=== PATIENT | female | born 1955 | race Caucasian/White ===

== ENCOUNTER 2025-03-01 14:38 | Emergency (ER) | payer MEDICARE, SELFPAY ==
[2025-03-01 14:45] VITALS: BP 120/79; PULSE 80; RESP 81; TEMP 36.7; O2SAT 94; BMI 32.5
--- NOTE | 2025-03-01 14:48 | PD.EDRME ---
Rapid Medical Screening Exam RME Arrival date/time: 03/01/25 14:38 Chief Complaint: General Adult/Misc Complain RME Narrative: 69-year-old male presents the emergency department with complaint of lower leg swelling past 3 days. Patient has a history of chronic stable angina and sees a material handling warehouse supervisor. Her next appointment is on March 13, 2025. Patient states that she has had 3 stent placement and per her last cardiology visit she needed one of the stents changed but she states there is been some stenosis and narrowing around the last stent and the material handling warehouse supervisor has not made a decision on what to do with the ring around the stent. She states that she has elevated heart rate with movement. She denies shortness of breath.
--- NOTE | 2025-03-01 14:51 | EKG_ITS ---
[facility] Test Date: 2025-03-01 Pat Name: BALBINA MARTIN Department: Room: - Gender: Female Plate Roller: : 1955 Requested By: Yumiko Craig Order Number: [id number] Reading MD: Yumiko Craig Measurements Intervals [place] Rate: 80 P: 48 NE: 156 QRS: -44 QRSD: 117 T: 45 QT: 364 QTc: 420 Interpretive Statements SINUS RHYTHM WITH SINUS ARRHYTHMIA LEFT AXIS DEVIATION [QRS AXIS < -30] PATTERN CONSISTENT WITH PULMONARY DISEASE INCOMPLETE RIGHT BUNDLE BRANCH BLOCK [90+ ms QRS DURATION, TERMINAL R IN V1/V2, 40+ ms S IN I/aVL/V4/V5/V6] MODERATE VOLTAGE CRITERIA FOR LVH, CONSIDER NORMAL VARIANT [MEETS CRITERIA IN ONE OF: R(aVL), S(V1), R(V5), R(V5/V6)+S(V1)] Compared to ECG 02/11/2024 03:01:38 Incomplete right bundle-branch block now present ST (T wave) deviation no longer present Myocardial infarct finding no longer present /store/S0/[id number].pdf
--- NOTE | 2025-03-01 14:52 | XR_ITS ---
Examination: Venous duplex lower extremity sonogram, bilateral. Date and time of exam: March 01, 2025 1550 hours INDICATIONS: Bilateral leg pain and edema beginning one week ago Technique: Multiple sonographic images of the deep venous system have been obtained. B-mode/2-D grayscale imaging of vascular structures and Doppler spectral analysis (waveforms) and color performed Both legs are examined. Findings: Deep venous systems do not demonstrate abnormal echogenicity. All visualized deep veins exhibit compressibility. All visualized deep veins exhibit augmentation. Impression: Negative for deep vein thrombosis
--- NOTE | 2025-03-01 15:03 | EKG_ITS ---
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: : 1955 Requested By: Yumiko Craig Order Number: [id number] Reading MD: Yumiko Craig Measurements Intervals [place] Rate: 82 P: 44 [place]: 152 QRS: -45 QRSD: 118 T: 43 QT: 356 QTc: 418 Interpretive Statements SINUS RHYTHM PATTERN CONSISTENT WITH PULMONARY DISEASE INCOMPLETE RIGHT BUNDLE BRANCH BLOCK [90+ ms QRS DURATION, TERMINAL R IN V1/V2, 40+ ms S IN I/aVL/V4/V5/V6] LEFT ANTERIOR FASCICULAR BLOCK [QRS AXIS <= -45, QR IN I, RS IN II] MODERATE VOLTAGE CRITERIA FOR LVH, CONSIDER NORMAL VARIANT [MEETS CRITERIA IN ONE OF: R(aVL), S(V1), R(V5), R(V5/V6)+S(V1)] POSSIBLE SEPTAL MYOCARDIAL INFARCTION , OF INDETERMINATE AGE [30 ms Q WAVE IN V1/V2] Compared to ECG 03/01/2025 14:57:27 Left anterior fascicular block now present Myocardial infarct finding now present Sinus arrhythmia no longer present Left-axis deviation no longer present /store/S0/[id number]/[id number].pdf
[2025-03-01 15:25] LABS: Basophils % (Auto) 1 % (0-2.5); Eosinophils # (Auto) 0.3 Thou/mm3 (0.0-0.5); Eosinophils % (Auto) 4 % (0-10); Hematocrit 37.1 % (36.0-46.0); Immature Granulocytes % (Auto) 0 % (0-0); Immature Granulocytes Auto 0.02 Thou/mm3 (0.00-0.00); Lymphocytes # (Auto) 2.4 Thou/mm3 (1.0-4.8); Lymphocytes % (Auto) 40 % (10-50); Mean Corpuscular Hemoglobin 32.2 pg (25.0-35.0); Mean Corpuscular Volume 92 fL (80-100); Monocytes # (Auto) 0.5 Thou/mm3 (0.0-0.8); Monocytes % (Auto) 8 % (0-12); Neutrophils # (Auto) 2.9 Thou/mm3 (1.8-7.7); Neutrophils % (Auto) 47 % (37-80); Nucleated Red Blood Cell % 0 /100 WBC (0); Platelet Count 214 Thou/mm3 (140-440); RDW Standard Deviation 43.3 fL (36.4-46.3); Red Blood Count 4.04 Miln/mm3 (4.00-5.20); White Blood Count 6.1 Thou/mm3 (3.6-11.0)
[2025-03-01 15:38] LABS: B-Type Natriuretic Peptide 36 pg/mL (0-100)
[2025-03-01 15:39] LABS: Alanine Aminotransferase 14 U/L (10-49); Albumin, Serum 4.5 gm/dL (3.4-4.8); Alkaline Phosphatase 71 U/L (46-116); Anion Gap 9 (7-16); Aspartate Amino Transferase 21 U/L (0-34); BUN/Creatinine Ratio 12 Ratio (12-20); Bilirubin,Total 0.8 mg/dL (0.3-1.2); Blood Urea Nitrogen 22 mg/dL (9-23); Calcium 9.5 mg/dL (8.3-10.6); Calcium (Corrected) 9.5 mg/dL (8.5-10.1); Carbon Dioxide 33.7 mMol/L (20.0-31.0); Chloride 97 mMol/L (98-107); Creatinine (Component) 1.8 mg/dL (0.6-1.3); Estimated Creatinine Clearance 39.6 mL/min (>60); Globulin 2.3 gm/dL (2.3-3.5); Glucose 110 mg/dL (74-106); Lipase 36 U/L (12-53); Osmolality,Calculated 283 (275-295); Potassium 4.3 mMol/L (3.4-5.1); Sodium 140 mMol/L (136-145); Total Protein 6.8 gm/dL (5.7-8.2); Troponin I < 0.002 ng/mL (0.0-0.045); eGFR 30 See Note
--- NOTE | 2025-03-01 15:43 | XR_ITS ---
Examination: AP chest single view TECHNIQUE: AP semiupright portable chest single view Exam date and time: March 01, 2025, 1715 hours Comparison February 11, 2024 INDICATION: Shortness of breath today. FINDINGS: Normal heart size Minimal ectasia of thoracic aorta. No lobar pneumonia or pulmonary edema. Prominent osteopenia IMPRESSION: No lobar pneumonia or pulmonary edema
[2025-03-01 15:48] VITALS: BP 124/60; PULSE 80
[2025-03-01] MEDS: FUROSEMIDE INJ 10 MG/ML 4ML VIAL 40 MG IVP (15:48)
[2025-03-01 15:52] VITALS: BP 124/60; PULSE 82; RESP 17; O2SAT 94
--- NOTE | 2025-03-01 15:54 | PD.EDADULT ---
ED General RME/HPI General Chief complaint: General Adult/Misc Complain Stated complaint: LOWER EXREMITY SWELLING Time Seen by Provider: 03/01/25 15:41 Arrival date/time: 03/01/25 14:38 CC: Lower extremity edema with posterior fossa knee pain, generalized weakness HPI ongoing for the past 3 days. Denies chest pain shortness of difficulty breathing. Was seen by Dr. Crespo 4 days ago. RME / HPI RME / HPI narrative: 69-year-old male presents the emergency department with complaint of lower leg swelling past 3 days. 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 Her next appointment is on March 13, 2025. Patient states that she has had 3 stent placement and per her last cardiology visit she needed one of the stents changed but she states there is been some stenosis and narrowing around the last stent and the char filter tank tender head has not made a decision on what to do with the ring around the stent. She states that she has elevated heart rate with movement. She denies shortness of breath. Related Data Home Medications ?Medication ?Instructions ?Recorded ?Confirmed alprazolam 2 mg tablet (Xanax) 2 mg PO BID #0 tabs 09/17/15 05/11/21 aspirin 81 mg tablet 81 mg PO QDAY ##0 09/17/15 05/11/21 hydrocodone 10 mg-acetaminophen 1.5 tab PO QDAY #0 tabs 09/17/15 05/11/21 325 mg tablet levothyroxine 100 mcg tablet 100 mcg PO QDAY Thyroid #0 tabs 09/17/15 05/11/21 carvedilol 12.5 mg tablet 12.5 mg PO BID 05/11/21 05/11/21 clopidogrel 75 mg tablet 75 mg PO QDAY 05/11/21 05/11/21 conjugated estrogens 0.3 mg tablet 0.3 mg PO QDAY 05/11/21 05/11/21 (Premarin) losartan 50 mg tablet 50 mg PO BID 05/11/21 05/11/21 nitroglycerin 0.4 mg sublingual 0.4 mg buccal PRN PRN Chest Pain 05/11/21 05/11/21 tablet rosuvastatin 5 mg tablet 5 mg PO HS 05/11/21 05/11/21 sulfamethoxazole 800 1 tab PO BID 05/11/21 05/11/21 mg-trimethoprim 160 mg tablet Allergies Allergy/AdvReac Type Severity Reaction Status Date / Time No Known Allergies Allergy Verified 03/01/25 14:44 Past Medical History Past Medical History CARDIAC: Positive Hypercholesterolemia, Congestive Heart Failure and Hypertension; Negative Cardiac Disorders RESPIRATORY: Negative Chronic Obstructive Pulmonary Disease (COPD) or Asthma GENITOURINARY: Positive Renal Disease ENDOCRINE: Negative Diabetes Mellitus Type 1 or Diabetes Mellitus Type 2 HEMATOLOGIC: Negative Sickle Cell Disease OTHER HISTORY: Positive Cancer Social History SMOKING STATUS: Never smoker SUBSTANCE USE: does not use ED Exam Narrative Physical exam: [General: Obese not in any acute distress Head normocephalic HEENT: Eyes pupils are PERRLA EOMs are intact mouth pink moist membranes uvula is midline swallow symmetrical phonation is normal. All other subsystems of ATTR within acceptable limits Neck is supple nontender Chest equal chest rise nontender to palpation Respiratory: Clear to auscultation no wheezes crackles or rubs CV: Rate rhythm is regular no murmurs rubs or clicks Abdomen is distended secondary to body habitus soft nontender no masses positive bowel sounds all 4 quadrants Back: No CVA tenderness no spinous process tenderness from cervical spine thoracic and lumbar spine Skin: Intact no petechiae rash induration ulceration or crepitus. Mild circumferential erythema to the lower extremities bilaterally. Extremities: Moving all extremity against resistance cap refill less than 2 seconds neurosensory intact. Lower extremity nonpitting edema to the lower portion of the lower legs. No dorsal foot edema. Tenderness to palpation in the posterior fossa of both legs. Neuro: Awake alert oriented x3 [place] coma 15 no focal deficits] Course Course Course Narrative: Patient seen by Dr. Crespo in the ER. He was informed of the increase in the creatinine from 0.9-1.8 and he had revealed that the patient had been given diuretics for the last 3 days. Nurse just informed me also the patient was given additional diuretics today prior to me seeing the patient as prescribed by the triage provider. At this time patient will now be given IV fluids and monitored for improvement of the creatinine. I suspect dehydration is the culprit for her rise in creatinine. The patient's creatinine is improved from 1.8-1.5 after liter of fluid and 2 large glasses of water over several hours. At this time I am comfortable discharging the patient home as long as she has close follow-up if she cannot get into see her PCP, Dr. Crespo char filter tank tender head, she is to return to the emergency room for recheck of her BUN and creatinine. Patient also advised if there is no urine coming out in spite of drinking fluids she is to return immediately to the emergency room for reevaluation. Patient and are agreeable with this plan. Quality Measures none Orders Category Date Time Status EKG (ED ONLY) *Do not use* NOW Care 03/01/25 14:51 Completed EKG (ED ONLY) *Do not use* NOW Care 03/01/25 15:03 Completed EKG (ED Only) Stat Exams 03/01/25 14:51 Draft EKG (ED Only) Stat Exams 03/01/25 15:03 Draft US venous duplex LE BI Stat Exams 03/01/25 14:52 Completed XR chest 1V Stat Exams 03/01/25 15:43 Completed B-Type Natriuretic Peptide Stat Lab 03/01/25 15:05 Completed CBC Stat Lab 03/01/25 15:05 Completed CMP [Comprehensive Metabolic Panel] Stat Lab 03/01/25 18:50 Completed Comprehensive Metabolic Panel Stat Lab 03/01/25 15:05 Completed Creatine Kinase Stat Lab 03/01/25 15:05 Completed Lipase Stat Lab 03/01/25 15:05 Completed TSH [Thyroid Stimulating Hormone] Stat Lab 03/01/25 15:05 Completed Troponin I Stat Lab 03/01/25 15:05 Completed Urinalysis, C/S if Indicated Stat Lab 03/01/25 16:29 Completed Furosemide Inj [Lasix Inj] Med 03/01/25 14:51 Discontinued 40 mg IVP X1 ONE Sodium Chloride 0.9% 1000 ml [Ns] 1,000 ml Med 03/01/25 16:15 Discontinued IV 999 mls/hr Vital Signs Vital signs: Vital Signs Temperature 98.0 F 03/01/25 14:45 Pulse Rate 80 03/01/25 14:45 Respiratory Rate 81 H 03/01/25 14:45 Blood Pressure 120/79 03/01/25 14:45 Pulse Oximetry (%) 94 L 03/01/25 14:45 Oxygen Delivery Method Room Air 03/01/25 14:45 Discharge Plan Plan Patient Disposition: HOME (Self Care) Patient condition on transfer: Stable Prescriptions/Referrals Prescriptions/Med Rec: No Action hydrocodone-acetaminophen [[place]] 10-325 mg Tablet 1.5 tab PO QDAY Qty: 0 levothyroxine 100 mcg Tablet 100 mcg PO QDAY Qty: 0 alprazolam [Xanax] 2 MG tablet 2 mg PO BID Qty: 0 aspirin 81 mg Tablet 81 mg PO QDAY Qty: 0 losartan 50 mg Tablet 50 mg PO BID carvedilol 12.5 mg Tablet 12.5 mg PO BID clopidogrel 75 mg Tablet 75 mg PO QDAY sulfamethoxazole-trimethoprim 800-160 mg tablet 1 tab PO BID nitroglycerin 0.4 mg Tablet, Sublingual 0.4 mg BUCCAL PRN PRN (Reason: Chest Pain) Premarin 0.3 mg Tablet 0.3 mg PO QDAY rosuvastatin 5 mg Tablet 5 mg PO HS Referrals: Brittaney Vazquez MD [Primary Care Provider] - In 1 week Problem List Clinical Impression: Dehydration, RENEE (acute kidney injury) Patient/Caregiver Discharge Instructions Education Materials: Kidney Failure Self Care, ED Dehydration (Adult) Print Language: Yoruba Stand Alone Forms: Kelsie Award Info., Patient Portal Info Letter PA/DIRECTOR DECISION SUPPORT Supervising Physician PA/DIRECTOR DECISION SUPPORT Supervising Physician: Morgan Lorenz ENP [facility] Labs Lab(s) Interpretation(s): CBC shows no acute leukocytosis anemia thrombocytopenia CMP shows a chloride of 97 CO2 of 33.7 BUN of 22 creatinine of 1.8 note this is significant increase from 0.9 creatinine 3 weeks ago. Glucose of 110 no other electrolyte imbalances renal impairment no transaminitis or T. bili elevation Troponin is negative BNP is negative Imaging Imaging Interpretation(s): EKG performed at 1457 shows a ventricular rate of 80 CO interval 156 QRS of 117 QTc of 3 9 this is sinus rhythm with sinus arrhythmia. There is an isolated else ST segment elevation in V2 no reciprocal changes or other ST segment elevations. Repeat EKG at 1508 shows ventricular to be 2 CO interval 152 QRS of 118 QTc of 395 shows incomplete right bundle branch block again there is an isolated V2 segment elevation but no other ST segment elevation no reciprocal changes. When compared to old EKGs these are slightly different than ones that were performed in January 2024 but there are similar EKGs in 2019. All of these were reviewed by Dr. Crespo who states this is a nonspecific finding. He felt we will follow-up the patient outpatient basis. Medication Administration(s) Medication Administration History Discontinued Medications Furosemide (Furosemide Inj 10 Mg/Ml 4ml Vial) 40 mg IVP X1 ONE Stop: 03/01/25 14:52 Last Admin: 03/01/25 15:48 Dose: 40 mg Documented By: LAM Sodium Chloride (Ns) 1,000 mls @ 999 mls/hr IV .Q1H1M ONE Stop: 03/01/25 17:15 Last Infusion: 03/01/25 18:15 Dose: Infused Documented By: Admin: 03/01/25 17:09 Dose: 999 mls/hr Documented By: LAM
[2025-03-01 16:21] LABS: Creatine Kinase 129 U/L (34-171); Thyroid Stimulating Hormone 0.81 uIU/mL (0.55-4.78)
[2025-03-01 16:39] LABS: Collection Type, Urine Voided
[2025-03-01 16:50] LABS: Bilirubin,Urine Negative (Negative); Blood,Urine Negative (Negative); Clarity,Urine Clear (Clear/Hazy); Color,Urine Lt-Yellow (Lt Yel-Yel); Culture Indicated,Urine Not Indicated; Glucose, Urine Negative (Negative); Ketones,Urine Negative (Negative); Leukocyte Esterase,Urine Negative (Negative); Nitrite,Urine Negative (Negative); PH,Urine 7.5 (5.0-7.0); Protein,Urine Negative (Neg - Trace); RBC,Urine 1 /hpf (0-3); Specific Gravity,Urine 1.008 (1.001-1.035); Squamous Epithelial Cell,Urine < 1 /hpf (0-5); Urobilinogen,Urine Negative mg/dL (0.0-1.0); WBC,Urine 1 /hpf (0-5)
[2025-03-01] MEDS: SODIUM CHLORIDE 0.9% 1000 ML 1,000 ML 999 ML IV (17:09)
[2025-03-01 18:19] VITALS: BP 140/76; PULSE 74; RESP 20; TEMP 36.3; O2SAT 95
[2025-03-01 19:18] LABS: Alanine Aminotransferase 15 U/L (10-49); Albumin, Serum 4.4 gm/dL (3.4-4.8); Albumin/Globulin Ratio 2.1 (1.2-2.2); Alkaline Phosphatase 65 U/L (46-116); Anion Gap 6 (7-16); Aspartate Amino Transferase 21 U/L (0-34); BUN/Creatinine Ratio 13 Ratio (12-20); Bilirubin,Total 0.7 mg/dL (0.3-1.2); Blood Urea Nitrogen 20 mg/dL (9-23); Calcium 9.1 mg/dL (8.3-10.6); Calcium (Corrected) 9.1 mg/dL (8.5-10.1); Carbon Dioxide 32.5 mMol/L (20.0-31.0); Chloride 97 mMol/L (98-107); Creatinine (Component) 1.5 mg/dL (0.6-1.3); Estimated Creatinine Clearance 47.5 mL/min (>60); Globulin 2.1 gm/dL (2.3-3.5); Glucose 112 mg/dL (74-106); Osmolality,Calculated 273 (275-295); Potassium 3.4 mMol/L (3.4-5.1); Sodium 135 mMol/L (136-145); Total Protein 6.5 gm/dL (5.7-8.2); eGFR 37 See Note
[2025-03-01 19:45] VITALS: BP 144/74; PULSE 76; RESP 16; TEMP 36.6; O2SAT 99
== END 2025-03-01 19:53 | disposition home or self-care (01) ==
PROVIDERS: Physician Assistant; Registered Nurse General Practice; Emergency Provider Emergency Medicine; PCP Specialist
DX: E86.0 Dehydration (principal); N17.9 Acute kidney failure, unspecified; M79.89 Other specified soft tissue disorders; I20.89 Other forms of angina pectoris; Z95.5 Presence of coronary angioplasty implant and graft
CPT/HCPCS: 36415; 71045; 80053; 81001; 82550; 83690; 83880; 84443; 84484; 85025; 93005; 93970; 96360; 99284; J1938; J7030

== ENCOUNTER → 2025-03-04 | Outpatient (CLI) | payer MEDICARE, SELFPAY ==
[2025-03-04 12:28] LABS: Anion Gap 9 (7-16); BUN/Creatinine Ratio 14 Ratio (12-20); Blood Urea Nitrogen 15 mg/dL (9-23); Calcium 10.1 mg/dL (8.3-10.6); Calcium (Corrected) 10.1 mg/dL (8.5-10.1); Carbon Dioxide 27.9 mMol/L (20.0-31.0); Chloride 103 mMol/L (98-107); Creatinine (Component) 1.1 mg/dL (0.6-1.3); Glucose 126 mg/dL (74-106); Osmolality,Calculated 282 (275-295); Phosphorous 3.3 mg/dL (2.4-5.1); Potassium 4.3 mMol/L (3.4-5.1); Sodium 140 mMol/L (136-145); eGFR 54 See Note
== END | disposition home or self-care (01) ==
LOC: COPL 11:38
PROVIDERS: PCP Specialist; Referring Provider Internal Medicine Cardiovascular Disease; Visit Provider Internal Medicine Cardiovascular Disease
DX: I20.89 Other forms of angina pectoris (principal); I50.33 Acute on chronic diastolic (congestive) heart failure
CPT/HCPCS: 36415; 80069

== ENCOUNTER 2025-04-01 20:21 | Emergency (ER) | payer MEDICARE, SELFPAY ==
[2025-04-01 20:22] VITALS: BMI 27.6
--- NOTE | 2025-04-01 20:39 | XR_ITS ---
Examination: Knee, left , 3 views Technique: Knee AP, lateral, oblique 3 views Date and time of exam: April 01, 2025 2109 hours INDICATIONS: Knee pain and swelling beginning 2 weeks ago. FINDINGS: Moderate to advanced tricompartment osteoarthritis, most severe patellofemoral joint No fracture No ossified joint body IMPRESSION: Moderate to advanced tricompartment osteoarthritis No fracture
[2025-04-01 21:24] VITALS: BP 118/71; PULSE 69; RESP 20; TEMP 36.7; O2SAT 97
--- NOTE | 2025-04-01 21:55 | PD.EDLOWEX ---
Lower Extremity Injury RME/HPI General Chief Complaint: Extremity Injury, Lower Stated Complaint: LEFT KNEE SWELLING AND PAIN, FALL 3 WKS AGO Time Seen by Provider: 04/01/25 21:42 Arrival date/time: 04/01/25 20:21 70F with history of CHF, hypothyroidism and HTN presents to ED with L knee pain/swelling after she fell on it 3 weeks ago. Patient has ortho appt in 2 weeks. Limitations: no limitations Related Data Home Medications ?Medication ?Instructions ?Recorded ?Confirmed alprazolam 2 mg tablet (Xanax) 2 mg PO BID #0 tabs 09/17/15 05/11/21 aspirin 81 mg tablet 81 mg PO QDAY ##0 09/17/15 05/11/21 hydrocodone 10 mg-acetaminophen 1.5 tab PO QDAY #0 tabs 09/17/15 05/11/21 325 mg tablet levothyroxine 100 mcg tablet 100 mcg PO QDAY Thyroid #0 tabs 09/17/15 05/11/21 carvedilol 12.5 mg tablet 12.5 mg PO BID 05/11/21 05/11/21 clopidogrel 75 mg tablet 75 mg PO QDAY 05/11/21 05/11/21 conjugated estrogens 0.3 mg tablet 0.3 mg PO QDAY 05/11/21 05/11/21 (Premarin) losartan 50 mg tablet 50 mg PO BID 05/11/21 05/11/21 nitroglycerin 0.4 mg sublingual 0.4 mg buccal PRN PRN Chest Pain 05/11/21 05/11/21 tablet rosuvastatin 5 mg tablet 5 mg PO HS 05/11/21 05/11/21 sulfamethoxazole 800 1 tab PO BID 05/11/21 05/11/21 mg-trimethoprim 160 mg tablet Allergies Allergy/AdvReac Type Severity Reaction Status Date / Time No Known Allergies Allergy Verified 04/01/25 20:22 Review of Systems Review of Systems Systems Reviewed: All systems reviewed, normal except as documented Constitutional Constitutional: Reports system reviewed and no additional complaints, except as documented, Denies fever(s) and Denies headache(s) ENT Ears, Nose, Mouth, and Throat: Denies disequilibrium and Denies headache(s) Cardiovascular Cardiovascular: Reports system reviewed and no additional complaints, except as documented, Denies chest pain and Denies dyspnea Respiratory Respiratory: Reports system reviewed and no additional complaints, except as documented, Denies cough and Denies dyspnea Gastrointestinal Gastrointestinal: Reports system reviewed and no additional complaints, except as documented, Denies abdominal pain, Denies nausea and Denies vomiting Musculoskeletal Musculoskeletal: Reports as per HPI, Reports arthralgias and Reports joint swelling Neurologic Neurologic: Reports system reviewed and no additional complaints, except as documented, Denies confusion, Denies disequilibrium and Denies headache(s) Psychiatric Psychiatric: Denies confusion Past Medical History Past Medical History CARDIAC: Positive Hypercholesterolemia, Congestive Heart Failure and Hypertension; Negative Cardiac Disorders RESPIRATORY: Negative Chronic Obstructive Pulmonary Disease (COPD) or Asthma GENITOURINARY: Positive Renal Disease ENDOCRINE: Negative Diabetes Mellitus Type 1 or Diabetes Mellitus Type 2 HEMATOLOGIC: Negative Sickle Cell Disease OTHER HISTORY: Positive Cancer Social History SMOKING STATUS: Never smoker SUBSTANCE USE: does not use ED Exam General Limitations: Present no limitations General appearance: Present alert and in no apparent distress Head Head exam: Present atraumatic Eye Eye exam: Present normal appearance, PERRL and EOMI ENT ENT exam: Present normal exam, normal oropharynx and mucous membranes moist Neck Neck exam: Present normal inspection, full ROM and trachea midline Chest Chest inspection: Present normal inspection and symmetric chest wall rise Respiratory Respiratory exam: Present normal lung sounds bilaterally Cardiovascular Cardiovascular exam: Present regular rate, normal rhythm and normal heart sounds Abdominal Exam Abdominal exam: Present soft and normal bowel sounds Extremities Exam Extremities exam: Present full ROM Expanded Lower Extremity Exam Knee exam: Present full ROM (L), swelling and ecchymosis Back Exam Back exam: Present normal inspection and full ROM Neurological Exam Neurological exam: Present alert, oriented X3 and CN II-XII intact Psychiatric Psychiatric exam: Present normal affect and normal mood Skin Skin exam: Present warm, dry, intact and normal color Course Quality Measures none Orders Category Date Time Status XR knee LT 3V Stat Exams 04/01/25 20:39 Completed Dexamethasone Inj [Decadron Inj] Med 04/01/25 21:43 Discontinued 10 mg PO X1 ONE Vital Signs Vital signs: Vital Signs Temperature 98.1 F 04/01/25 21:24 Pulse Rate 69 04/01/25 21:24 Respiratory Rate 20 04/01/25 21:24 Blood Pressure 118/71 04/01/25 21:24 Pulse Oximetry (%) 97 04/01/25 21:24 Oxygen Delivery Method Room Air 04/01/25 21:24 O2 at 97% on RA and WNLs Extremity Injury, Lower MDM Narrative MDM Narrative:: 70F with history of CHF, hypothyroidism and HTN presents to ED with L knee pain/swelling after she fell on it 3 weeks ago. Patient has ortho appt in 2 weeks. Physical exam reveals L knee swelling and bruising, but no redness. Patient is afebrile, calm, and alert. XR reveals OA. Meds and insurance counselor given. Patient data External records reviewed:: [facility] previous records Clinical information provided by:: patient Social determinants that could affect healthcare access:: none Patient has the following chronic illnesses:: CHF, hypothyroidism and HTN How is presenting disease/condition affected by chronic disease/condition?: exacerbated by Evaluation data The following diagnostics were reviewed and interpreted by me:: radiology exam(s) Lab and/or radiology exams considered but not ordered:: ordered Interpretation Summary: above Medications / Prescriptions Medications or Prescriptions considered but not ordered:: ordered Medication administrations:: Medication Administration History Discontinued Medications Dexamethasone Sodium Phosphate (Dexamethasone Sod Phos Inj 10 Mg/Ml Vial) 10 mg PO X1 ONE Stop: 04/01/25 21:44 above Consultations Consultation(s) initiated? (list below): No Diagnosis Extremity Injury, Lower Differential Diagnosis: ankle sprain and strain, acute internal derangement of knee, fracture of femur, fracture of hip, puncture wound of foot, fracture of toe and ankle fracture Most likely diagnosis given after review of the tests above:: acute internal derangement of knee Admission Indicated Admission indicated?: not indicated Admission Request Was there a request for admission?: No Disposition Plan Disposition Plan: Discharge Discharge Attestation Discharge Attestation: The patient and all family members were given an opportunity to ask questions and understood the discharge instructions. Discharge instructions specifically effects, indications for sooner follow up or return to the emergency department, and the expected course of current diagnosis. Patient condition: Stable Discharge Plan Plan Patient Disposition: HOME (Self Care) Discharge Disposition comment: Stable Prescriptions/Referrals Prescriptions/Med Rec: No Action hydrocodone-acetaminophen [[place]] 10-325 mg Tablet 1.5 tab PO QDAY Qty: 0 levothyroxine 100 mcg Tablet 100 mcg PO QDAY Qty: 0 alprazolam [Xanax] 2 MG tablet 2 mg PO BID Qty: 0 aspirin 81 mg Tablet 81 mg PO QDAY Qty: 0 losartan 50 mg Tablet 50 mg PO BID carvedilol 12.5 mg Tablet 12.5 mg PO BID clopidogrel 75 mg Tablet 75 mg PO QDAY sulfamethoxazole-trimethoprim 800-160 mg tablet 1 tab PO BID nitroglycerin 0.4 mg Tablet, Sublingual 0.4 mg BUCCAL PRN PRN (Reason: Chest Pain) Premarin 0.3 mg Tablet 0.3 mg PO QDAY rosuvastatin 5 mg Tablet 5 mg PO HS Referrals: Brittaney Vazquez MD [Primary Care Provider] - In 1 week Problem List Clinical Impression: Acute internal derangement of knee Patient/Caregiver Discharge Instructions Education Materials: How Your Knee Works Additional Instructions: Please follow-up with PCP within 24-48 hours and return immediately if symptoms worsen. If problem persists, recommend outpatient PT and/or MRI follow-up. In the meantime, rest, use ice/heat, and/or compression. Print Language: Sri Lankan Stand Alone Forms: Patient Portal Info Letter PA/BASKET PATCHER Supervising Physician PA/BASKET PATCHER Supervising Physician: Dr. Gee
[2025-04-01] MEDS: DEXAMETHASONE SOD PHOS INJ 10 MG/ML VIAL PO (22:20)
== END 2025-04-02 00:56 | disposition home or self-care (01) ==
PROVIDERS: Emergency Provider Emergency Medicine; PCP Specialist
DX: M23.92 Unspecified internal derangement of left knee (principal); I11.0 Hypertensive heart disease with heart failure; I50.9 Heart failure, unspecified; E03.9 Hypothyroidism, unspecified
CPT/HCPCS: 73562; 99283; J1100

== ENCOUNTER → 2025-06-10 | Outpatient (CLI) | payer MEDICARE, SELFPAY ==
--- NOTE | 2025-06-10 09:30 | XR_ITS ---
Examination: MRI lumbar spine without contrast Date and time of exam: June 10, 2025 1044 hours Comparison March 30, 2017 INDICATIONS: Lifting injury to lower back 5 years ago with persistent lower back pain Technique: Multiple MRI axial and sagittal sections lumbar spine. Sagittal T2-weighted images, TR 3500, TE 118 T1 weighted transverse sections, TR 688 T8.5, T2-weighted sagittal sections T1 weighted sagittal sections TR 621, TE 30 T2 axial sections, TR 4, 190, TE 84. Findings: Adequate alignment lumbar vertebral bodies on the lateral view Hemangiomatous change L1 No lumbar fracture Mild lumbar spondylosis Diffuse lumbar disc desiccation No spondylolisthesis L5-S1 4 mm right paracentral disc bulge L4-L5 4 mm central lumbar disc bulge L3-L4 no disc protrusion L2-L3 no disc protrusion L1-L2 no disc protrusion Mass in the mid pole right kidney, 34 mm IMPRESSION: L5-S1 4 mm right paracentral disc bulge L4-L5 4 mm central lumbar disc bulge Recommend CT scan abdomen pelvis post intravenous contrast follow-up to assess 34 mm midpole right renal mass
== END | disposition home or self-care (01) ==
LOC: SMRI 09:06
PROVIDERS: PCP Specialist; Referring Provider Specialist; Visit Provider Specialist
DX: M51.370 Other intervertebral disc degeneration, lumbosacral region with discogenic back pain only (principal); M51.360 Other intervertebral disc degeneration, lumbar region with discogenic back pain only
CPT/HCPCS: 72148

== ENCOUNTER 2025-08-06 12:32 | Inpatient (IN) | payer MEDICARE, SELFPAY ==
[2025-08-06] VITALS (8 sets, daily range): BP systolic 117–174; BP diastolic 91–94; PULSE 20–100; RESP 18–98; TEMP 36.3–37; O2SAT 97–100; BMI 27.8; BMI 30.8
--- NOTE | 2025-08-06 12:43 | XR_ITS ---
Examination: CT brain head without contrast. 2-D sagittal coronal reconstructions Date and time of exam: August 06, 2025, 1428 hours INDICATIONS: Ground-level fall today with injury to the head, head pain CTDI: vol (mGy): 49 DLP: (mGycm): 1036 Technique: Multiple CT axial sections of the brain have been obtained, 5 mm slice thickness. Contrast has not been administered. 2-D sagittal, coronal reconstructions have been obtained Low dose protocols were performed. One or more of the following dose reduction techniques were used; automated exposure control, adjustment of the mA and/or KV according to patient size, use of iterative reconstruction technique. Findings: No significant ventricular enlargement. Intra-axial or extra-axial hemorrhage density is not seen. No mass effect or midline shift Basal cisterns are not remarkable. Fourth ventricle is midline. Cranial vault intact. Impression: Negative for acute hemorrhage, mass effect or midline shift
--- NOTE | 2025-08-06 12:43 | XR_ITS ---
Examination: Left hip AP, lateral, AP pelvis 3 views Technique: Hip AP lateral, AP pelvis, 3 views Exam date and time: August 06, 2025, 1334 hours INDICATIONS: Hip pain today FINDINGS: Prominent osteopenia. No acute left hip fracture Right hip bones of the pelvis intact Prominent osteopenia IMPRESSION: No acute hip or pelvic fracture.
--- NOTE | 2025-08-06 12:43 | EKG_ITS ---
[facility] Test Date: 2025-08-06 Pat Name: BALBINA MARTIN Department: Room: - Gender: Female Home Health Outreach Coordinator: : 1955 Requested By: Dagoberto Merida Order Number: [id number] Reading MD: Dagoberto Merida Measurements Intervals [place] Rate: 95 P: 63 MT: 164 QRS: -46 QRSD: 98 T: 52 QT: 342 QTc: 430 Interpretive Statements SINUS RHYTHM PATTERN CONSISTENT WITH PULMONARY DISEASE INCOMPLETE RIGHT BUNDLE BRANCH BLOCK [90+ ms QRS DURATION, TERMINAL R IN V1/V2, 40+ ms S IN I/aVL/V4/V5/V6] LEFT ANTERIOR FASCICULAR BLOCK [QRS AXIS <= -45, QR IN I, RS IN II] Compared to ECG 03/01/2025 15:08:59 Myocardial infarct finding no longer present /store/S0/[id number].pdf
--- NOTE | 2025-08-06 12:44 | XR_ITS ---
EXAMINATION: AP chest single view TECHNIQUE: AP portable upright chest single view Date and time: August 06, 2025, 1339 hours INDICATIONS: Sepsis alert FINDINGS: The film is rotated severely RPO No pneumonia Normal heart size Ectatic thoracic aorta Prominent osteopenia IMPRESSION: No pneumonia identified
--- NOTE | 2025-08-06 12:55 | PD.EDFALL ---
ED Fall Injury RME/HPI General Chief Complaint: Fall Stated Complaint: FALL Time Seen by Provider: 08/06/25 12:54 Arrival date/time: 08/06/25 12:32 RME / HPI RME / HPI Narrative: 70-year-old female patient with significant history of anxiety, chronic back pain, taking alprazolam, [place], hypertension, came in for evaluation after patient was noted lying on the floor. According to the patient she does not recall falling however when the fire arrived patient was on the floor lying down and sleeping. When the EMS arrived patient was noted to be having a GCS of 14 slightly confused. In my initial evaluation patient is denying any headache denies any recollection of fall, he is alert and oriented x 3, however complaining of pain to the left hip. Patient also complaining of chronic back pain. Patient denies any chest pain denies any headache denies any neck pain. No medication was given prior to ER visit. Related Data Home Medications ?Medication ?Instructions ?Recorded ?Confirmed alprazolam 2 mg tablet (Xanax) 2 mg PO BID #0 tabs 09/17/15 05/11/21 aspirin 81 mg tablet 81 mg PO QDAY ##0 09/17/15 05/11/21 hydrocodone 10 mg-acetaminophen 1.5 tab PO QDAY #0 tabs 09/17/15 05/11/21 325 mg tablet levothyroxine 100 mcg tablet 100 mcg PO QDAY Thyroid #0 tabs 09/17/15 05/11/21 carvedilol 12.5 mg tablet 12.5 mg PO BID 05/11/21 05/11/21 clopidogrel 75 mg tablet 75 mg PO QDAY 05/11/21 05/11/21 conjugated estrogens 0.3 mg tablet 0.3 mg PO QDAY 05/11/21 05/11/21 (Premarin) losartan 50 mg tablet 50 mg PO BID 05/11/21 05/11/21 nitroglycerin 0.4 mg sublingual 0.4 mg buccal PRN PRN Chest Pain 05/11/21 05/11/21 tablet rosuvastatin 5 mg tablet 5 mg PO HS 05/11/21 05/11/21 sulfamethoxazole 800 1 tab PO BID 05/11/21 05/11/21 mg-trimethoprim 160 mg tablet Allergies Allergy/AdvReac Type Severity Reaction Status Date / Time morphine Allergy Intermediate Diarrhea Verified 08/06/25 13:12 Review of Systems Review of Systems Narrative Review of Systems: Review of system reviewed and within normal limits except mentioned in HPI ED Exam Narrative Physical exam: VITAL SIGNS: Reviewed. GENERAL APPEARANCE: Alert and interactive, follows commands, no acute distress, HEAD AND FACE: Non-traumatic. ENT: PERRL, pink conjunctivitis, eyelid no trauma, Mucous membrane moist. NECK: Supple, nontender, no nuchal rigidity. CHEST: No tenderness, no crepitus, no paradoxical movement, no retractions. LUNGS: Clear, well ventilated, symmetric, no rales, no wheezing, no ronchi, no stridor, good breath sounds bilaterally. HEART: Regular rate, regular rhythm, no murmur, no gallops. ABDOMEN: Soft, positive bowel sounds, nondistended, no guarding, nontender, no rebound, no masses, RECTAL: Deferred. GENITAL: Deferred. NEUROLOGICAL: Gross motor function intact sensory function intact, Appropriate for age. MUSCULOSKELETAL: low back nontender, full range of motion. EXTREMITIES: Left hip tenderness, with limitation of range of motion, mild swelling, no shortening SKIN: Color pink, dry, no rash, no lacerations, no abrasions, no contusions. LYMPHATICS: Deferred. Course Quality Measures none Orders Category Date Time Status Patient Condition Routine Admission 08/06/25 20:[address] in Observation Status Routine Admission 08/06/25 20:21 Active Activity as Tolerated Routine Care 08/06/25 20:22 Ordered COVID-19 Screening Questionnaire NOW Care 08/06/25 19:28 Active Coat Maker STAT Care 08/06/25 12:43 Active Continuous Pulse Oximetry STAT Care 08/06/25 12:43 Completed Decision to Admit X1 Care 08/06/25 19:28 Completed EKG (ED ONLY) *Do not use* NOW Care 08/06/25 12:43 Completed Nolen [Urinary Catheter] QS Care 08/06/25 15:21 Active Insert IV NOW Care 08/06/25 12:43 Active NPO STAT Care 08/06/25 12:43 Active Notify provider NEEDED Care 08/06/25 20:21 Active Strict Intake and Output Routine Care 08/06/25 12:[address] head/brain wo con Stat Exams 08/06/25 12:43 Completed EKG (ED Only) Stat Exams 08/06/25 12:43 Draft US venous doppler LE BI Stat Exams 08/06/25 20:29 Completed XR chest 1V SEPSIS PROTOCOL Stat Exams 08/06/25 12:44 Completed XR hip LT w pelvis 2-3V Stat Exams 08/06/25 12:43 Completed B-Type Natriuretic Peptide Stat Lab 08/06/25 13:20 Completed Basic Metabolic Panel AM DRAW Lab 08/07/25 05:00 Ordered Basic Metabolic Panel AM DRAW Lab 08/08/25 05:00 Ordered Basic Metabolic Panel AM DRAW Lab 08/09/25 05:00 Ordered Blood Culture (Lab) Stat Lab 08/06/25 14:09 Received CBC AM DRAW Lab 08/07/25 05:00 Ordered CBC AM DRAW Lab 08/08/25 05:00 Ordered CBC AM DRAW Lab 08/09/25 05:00 Ordered CBC Stat Lab 08/06/25 13:20 Completed CK [Creatine Kinase] Stat Lab 08/06/25 15:45 Completed Comprehensive Metabolic Panel Stat Lab 08/06/25 13:20 Completed Creatine Kinase Stat Lab 08/07/25 03:00 Ordered LDH (Lactate Dehydrogenase) Stat Lab 08/06/25 13:20 Completed Lactate (Lactic Acid) Stat Lab 08/06/25 13:20 Completed Lipase Stat Lab 08/06/25 13:20 Completed Magnesium AM DRAW Lab 08/07/25 05:00 Ordered Magnesium AM DRAW Lab 08/08/25 05:00 Ordered Magnesium AM DRAW Lab 08/09/25 05:00 Ordered Magnesium Stat Lab 08/06/25 13:20 Completed Partial Thromboplastin Time Stat Lab 08/06/25 15:48 Completed Phosphorous AM DRAW Lab 08/07/25 05:00 Ordered Phosphorous AM DRAW Lab 08/08/25 05:00 Ordered Phosphorous AM DRAW Lab 08/09/25 05:00 Ordered Phosphorous Stat Lab 08/06/25 13:20 Completed Procalcitonin Stat Lab 08/06/25 13:20 Completed Prothrombin Time with INR Stat Lab 08/06/25 15:48 Completed Troponin I Stat Lab 08/06/25 13:20 Completed Urinalysis, C/S if Indicated Stat Lab 08/06/25 15:19 Completed Acetaminophen Tab [Tylenol Tab] Med 08/06/25 20:21 Active 650 mg PO Q6H PRN Acetaminophen Tab [Tylenol Tab] Med 08/06/25 20:21 Active 650 mg PO Q6H PRN Heparin Inj Med 08/06/25 22:00 Active 5,000 unit SC Q8HR Ondansetron Inj [Zofran Inj] Med 08/06/25 20:21 Active 4 mg IVP Q6H PRN Ringers Lactated 1000 ml [Lactated Ringers] 1,000 ml Med 08/06/25 12:45 Discontinued IV 999 mls/hr Sodium Chloride 0.9% 1000 ml [Ns] 1,000 ml Med 08/06/25 20:28 Discontinued IV 80 mls/hr Code Status Routine Oth 08/06/25 20:21 Ordered Oxygen Delivery NOW RT 08/06/25 12:43 Active Vital Signs Vital signs: Vital Signs Temperature 97.4 F 08/06/25 12:52 Pulse Rate 92 08/06/25 12:52 Respiratory Rate 19 08/06/25 12:52 Blood Pressure 162/93 H 08/06/25 12:52 Pulse Oximetry (%) 98 08/06/25 12:52 Oxygen Delivery Method Room Air 08/06/25 12:52 Fall MDM Narrative MDM Narrative:: 70-year-old female patient with significant history of anxiety, chronic back pain, taking alprazolam, [place], hypertension, came in for evaluation after patient was noted lying on the floor. According to the patient she does not recall falling however when the fire arrived patient was on the floor lying down and sleeping. When the EMS arrived patient was noted to be having a GCS of 14 slightly confused. In my initial evaluation patient is denying any headache denies any recollection of fall, he is alert and oriented x 3, however complaining of pain to the left hip. Patient also complaining of chronic back pain. Patient denies any chest pain denies any headache denies any neck pain. No medication was given prior to ER visit. EKG sinus rhythm, ventricular rate of 95 bpm, no ST segment elevation or depression noted. Urinalysis no UTI CBC significant for total creatinine kinase of 1868. CT scan of the head came back unremarkable. Ultrasound bilateral lower extremity came back negative for DVT. Chest x-ray came back unremarkable x-ray of pelvis and hip came back unremarkable. Results discussed with the patient. Patient was given IV fluids, Patient needs to be admitted for continue confusion that comes and goes associated with generalized body weakness unable to ambulate without help. Patient data External records reviewed:: None Clinical information provided by:: patient Social determinants that could affect healthcare access:: none Patient has the following chronic illnesses:: anxiety, hypertension, hypothyroidism How is presenting disease/condition affected by chronic disease/condition?: exacerbated by Evaluation data The following diagnostics were reviewed and interpreted by me:: lab results, radiology exam(s) and EKG tracing(s) Lab and/or radiology exams considered but not ordered:: None Interpretation Summary: See MDM Medications / Prescriptions Medications or Prescriptions considered but not ordered:: None Medication administrations:: Medication Administration History Acetaminophen (Acetaminophen 325 Mg Tablet) 650 mg PO Q6H PRN PRN Reason: Fever >101.5 Stop: 09/05/25 20:20 Acetaminophen (Acetaminophen 325 Mg Tablet) 650 mg PO Q6H PRN PRN Reason: PAIN SCALE 1-3 (mild Stop: 09/05/25 20:20 Aspirin (Aspirin Ec 81 Mg Tabec) 81 mg PO QDAY RONEY Stop: 09/06/25 08:59 Atorvastatin Calcium (Atorvastatin Calcium 10 Mg Tablet) 10 mg PO HS RONEY Stop: 09/06/25 20:59 Heparin Sodium (Porcine) (Heparin Sod Inj 5000 Unit/Ml Vial) 5,000 unit SC Q8HR RONEY Stop: 08/20/25 21:59 Last Admin: 08/06/25 22:29 Dose: 5,000 unit Documented By: PETE Co-signed By: HARMAN Levothyroxine Sodium (Levothyroxine Sodium 100 Mcg Tablet) 100 mcg PO DAILY RONEY Stop: 09/06/25 08:59 Ondansetron HCl (Ondansetron Inj 2 Mg/Ml Inj 2 Ml) 4 mg IVP Q6H PRN; Protocol PRN Reason: NAUSEA OR VOMITING Stop: 09/05/25 20:20 Sennosides (Senna/Docusate Sod 1 Tab Tablet) 1 tab PO QDAY RONEY; Protocol Stop: 09/06/25 08:59 Discontinued Medications Lactated Ringer's (Lactated Ringers) 1,000 mls @ 999 mls/hr IV .Q1H1M ONE Stop: 08/06/25 13:45 Last Infusion: 08/06/25 15:03 Dose: Infused Documented By: Admin: 08/06/25 14:02 Dose: 999 mls/hr Documented By: VL Sodium Chloride (Ns) 1,000 mls @ 80 mls/hr IV .[id number] RONEY Stop: 09/05/25 20:27 Last Admin: 08/06/25 20:49 Dose: Not Given Documented By: HARMAN Non-Admin Reason: Cancelled by Provider IV fluids, Consultations Consultation(s) initiated? (list below): No Diagnosis Fall Differential Diagnosis: other (Rhabdomyolysis, fall, generalized weakness, confusion) Most likely diagnosis given after review of the tests above:: Rhabdomyolysis, fall, generalized weakness, confusion Admission Indicated Admission indicated?: not indicated Admission Request Was there a request for admission?: Yes Admission Attestation Admission request attestation: Discussed case with [Dr. Thompson] from Hospitalist service regarding admission. Discussed patients ED course, exam findings, labs, and radiology results. The Hospitalist [agrees, to accept the patient for admission. Disposition Plan Disposition Plan: Transfer Discharge Plan Plan Patient Disposition: Admit Acute Care w/in Hospital Discharge Disposition comment: Stable Problem List Clinical Impression: Weakness generalized, Rhabdomyolysis, Fall
[2025-08-06 13:34] LABS: Basophils # (Auto) 0.0 Thou/mm3 (0.0-0.2); Basophils % (Auto) 0 % (0-2.5); Eosinophils # (Auto) 0.1 Thou/mm3 (0.0-0.5); Eosinophils % (Auto) 1 % (0-10); Hematocrit 38.4 % (36.0-46.0); Hemoglobin 12.8 g/dL (12.0-16.0); Immature Granulocytes Auto 0.04 Thou/mm3 (0.00-0.00); Lymphocytes # (Auto) 1.2 Thou/mm3 (1.0-4.8); Lymphocytes % (Auto) 12 % (10-50); Mean Corpuscular HGB Conc 33.3 g/dl (31.0-37.0); Mean Corpuscular Hemoglobin 29.6 pg (25.0-35.0); Mean Corpuscular Volume 89 fL (80-100); Monocytes # (Auto) 0.4 Thou/mm3 (0.0-0.8); Monocytes % (Auto) 4 % (0-12); Neutrophils # (Auto) 7.7 Thou/mm3 (1.8-7.7); Neutrophils % (Auto) 81 % (37-80); Nucleated Red Blood Cell # 0.00 Thou/mm3 (0.00-0.00); Nucleated Red Blood Cell % 0 /100 WBC (0); Platelet Count 228 Thou/mm3 (140-440); RDW Standard Deviation 41.6 fL (36.4-46.3); Red Blood Count 4.32 Miln/mm3 (4.00-5.20); White Blood Count 9.5 Thou/mm3 (3.6-11.0)
[2025-08-06 13:36] LABS: Lactate (Lactic Acid) 0.9 mMol/L (0.4-2.0)
[2025-08-06 14:00] LABS: B-Type Natriuretic Peptide 38 pg/mL (0-100)
[2025-08-06] MEDS: RINGERS LACTATED 1000 ML 1,000 ML 999 ML IV (14:02)
[2025-08-06 14:09] LABS: Alanine Aminotransferase 27 U/L (10-49); Albumin, Serum 4.5 gm/dL (3.4-4.8); Albumin/Globulin Ratio 2.0 (1.2-2.2); Alkaline Phosphatase 74 U/L (46-116); Anion Gap 13 (7-16); Aspartate Amino Transferase 54 U/L (0-34); BUN/Creatinine Ratio 11 Ratio (12-20); Bilirubin,Total 1.1 mg/dL (0.3-1.2); Blood Urea Nitrogen 11 mg/dL (9-23); Calcium 9.8 mg/dL (8.3-10.6); Calcium (Corrected) 9.8 mg/dL (8.5-10.1); Carbon Dioxide 27.6 mMol/L (20.0-31.0); Chloride 101 mMol/L (98-107); Creatinine (Component) 1.0 mg/dL (0.6-1.3); Estimated Creatinine Clearance 65.1 mL/min (>60); Globulin 2.2 gm/dL (2.3-3.5); Glucose 118 mg/dL (74-106); LDH (Lactate Dehydrogenase) 308 U/L (120-246); Lipase 22 U/L (12-53); Magnesium 2.1 mg/dL (1.6-2.6); Osmolality,Calculated 283 (275-295); Phosphorous 4.2 mg/dL (2.4-5.1); Potassium 3.8 mMol/L (3.4-5.1); Procalcitonin 0.09 ng/ml (0.0-0.49); Sodium 142 mMol/L (136-145); Total Protein 6.7 gm/dL (5.7-8.2); Troponin I < 0.020 ng/mL (0.0-0.045); eGFR 60 See Note
[2025-08-06 15:25] LABS: Collection Type, Urine Catheter
[2025-08-06 15:38] LABS: Bilirubin,Urine Negative (Negative); Blood,Urine 1+ (Negative); Clarity,Urine Clear (Clear/Hazy); Color,Urine Yellow (Lt Yel-Yel); Culture Indicated,Urine Not Indicated; Glucose, Urine Negative (Negative); Ketones,Urine 2+ (Negative); Leukocyte Esterase,Urine Negative (Negative); Nitrite,Urine Negative (Negative); PH,Urine 5.5 (5.0-7.0); Protein,Urine Trace (Neg - Trace); RBC,Urine < 1 /hpf (0-3); Specific Gravity,Urine 1.018 (1.001-1.035); Squamous Epithelial Cell,Urine < 1 /hpf (0-5); Urobilinogen,Urine Negative mg/dL (0.0-1.0); WBC,Urine 1 /hpf (0-5)
[2025-08-06 16:08] LABS: INR 1.0 (0.9-1.3); Partial Thromboplastin Time 25.2 Seconds (22.0-36.0); Prothrombin Time 11.0 Seconds (9.0-12.2)
[2025-08-06 17:14] LABS: Creatine Kinase 1868 U/L (34-171)
--- NOTE | 2025-08-06 20:29 | XR_ITS ---
Examination: Venous duplex lower extremity sonogram, bilateral. Date and time of exam: August 06, 2025, 2149 hours INDICATIONS: Leg pain and swelling today Technique: Multiple sonographic images of the deep venous system have been obtained. B-mode/2-D grayscale imaging of vascular structures and Doppler spectral analysis (waveforms) and color performed Both legs are examined. Findings: Deep venous systems do not demonstrate abnormal echogenicity. All visualized deep veins exhibit compressibility. All visualized deep veins exhibit augmentation. Impression: Negative for deep vein thrombosis
--- NOTE | 2025-08-06 20:32 | ESHP_ITS ---
<Statement entered by Jovi Hyde MD - 08/07/25 06:00> I have discussed and was present for the essential components of the history, physical examination, diagnosis, and treatment plan with the resident. I agree with the patient's care as documented by the resident and amended herein by me. Jovi Hyde MD FACP. Documentation for date of: 08/06/25 HPI History of Present Illness History of present illness: Ms. Meneses is a 70 y/o female with PMHx CHF, hypothyroidism, HTN,CAD, renal cell carcinoma, fibromyalgia, dyslipidemia, dementia, chronic low back pain who presented to the ED on 08/06 after a fall. Patient went to the bathroom on the evening on 08/05 and had an unwitnessed fall. She does not remember the event. Her heard her fall and could not lift her up. She was on the floor for about 5 hours before her called EMS. Patient's kept checking on patient throughout the five hours, noted that she was hallucinating about neighborhood children under the bed with pizza. Both the patient and her are poor historians 2/2 dementia. Denies headache, chest pain/pressure, palpitations, abdominal pain, N/V, dysuria. Notes chronic LE edema and pain. Of note, patient reports hx of renal cell carcinoma diagnosed 2011. She reports recent laparoscopic surgery for right RCC at [facility]. She does not know what medications she is taking. Notes that she sees Dr. Vazquez for PCP and Dr. Crespo for cardiology. ED course: VSS. Labs significant for CK 1868. AST 58, LDH 308. Trop negative, BNP WNL. UA negative for UTI, 1+ blood, <[address] head, CXR, hip/pelvix XR negaive. Given 1L LR in ED. PMHx: CHF, hypothyroidism, HTN,CAD, renal cell carcinoma, fibromyalgia, dyslipidemia, chronic low back pain Allergies: NKDA Home meds: Pending med rec SgHx: 3 stent placement, renal cell carcinoma resection SHx: Denies smoking, EtOH, recreational drug use. Lives at home with her . FHx: none reported Review of Systems Review of Systems Narrative Review of Systems: 14 point ROS negative other than HPI Exam Vital Signs Temp Pulse Resp BP Pulse Ox O2 Del Method 98.6 F 100 18 117/91 H 99 Room Air 08/06/25 17:59 08/06/25 19:34 08/06/25 19:34 08/06/25 19:34 08/06/25 19:34 08/06/25 19:34 Narrative Exam General: No acute distress, well nourished Eye: PERRL, EOMI, normal conjunctiva, no scleral icterus HENT: Normocephalic, atraumatic, normal hearing, moist oral mucosa, hoarse voice Neck: Supple, non-tender, no JVD, no lymphadenopathy Lungs: Clear to auscultation bilaterally, non-labored respirations, symmetric chest rise, no use of accessory muscles Heart: Normal S1 and S2, no S3 or S4 appreciated. Normal rate and regular rhythm, no murmurs, rubs gallops. Peripheral pulses intact bilaterally, capillary refill brisk distally. 2+ b/l LE with pain out of proportion Abdomen: Soft, non-tender, non-distended, normal bowel sounds. No guarding or rebound tenderness. Musculoskeletal: Normal range of motion and strength, no tenderness or swelling Skin: Skin is warm, dry, no rashes or lesions. Neurologic: Alert, awake and oriented x2. CN II-XII grossly intact. No focal neuro deficits. No signs of meningeal irritation noted. Psychiatric: Cooperative, appropriate mood and affect Results: Labs 08/06/25 13:20 08/06/25 13:20 Labs: Short CBC 08/06/25 Range/Units 13:20 WBC 9.5 (3.6-11.0) Thou/mm3 Hgb 12.8 (12.0-16.0) g/dL Hct 38.4 (36.0-46.0) % Plt Count 228 (140-440) Thou/mm3 BMP 08/06/25 13:20 Sodium 142 Potassium 3.8 Chloride 101 Carbon Dioxide 27.6 BUN 11 Creatinine 1.0 Glucose 118 H Calcium 9.8 Cardiac Enzymes 08/06/25 08/06/25 Range/Units 13:20 15:45 Total Creatine Kinase 1868 H (34-171) U/L Troponin I < 0.020 (0.0-0.045) ng/mL Liver Function 08/06/25 Range/Units 13:20 Total Bilirubin 1.1 (0.3-1.2) mg/dL AST 54 H (0-34) U/L ALT 27 (10-49) U/L Alkaline Phosphatase 74 (46-116) U/L Albumin 4.5 (3.4-4.8) gm/dL Urine 08/06/25 Range/Units 15:19 Urine Color Yellow (Lt Yel-Yel) Urine Clarity Clear (Clear/Hazy) Urine pH 5.5 (5.0-7.0) Ur Specific [place] 1.018 (1.001-1.035) Urine Protein Trace (Neg - Trace) Urine Glucose (UA) Negative (Negative) Quality Measures Quality Measures VTE prophylaxis Advance care planning discussed with:: patient and spouse Medications Home Medications and Allergies Home Medications ?Medication ?Instructions ?Recorded ?Confirmed ?Type alprazolam 2 mg tablet (Xanax) 2 mg PO BID #0 tabs 05/11/21 History aspirin 81 mg tablet 81 mg PO QDAY ##0 09/17/15 0 05/11/21 History hydrocodone 10 mg-acetaminophen 1.5 tab PO QDAY #0 tab s 09/17/15 05/11/21 History 325 mg tablet levothyroxine 100 mcg tablet 100 mcg PO QDAY Thyroid # 0 tabs 09/17/15 05/11/21 History carvedilol 12.5 mg tablet 12.5 mg PO BID 05/11/2104/28 History clopidogrel 75 mg tablet 75 mg PO QDAY 05/11/2105/11 History conjugated estrogens 0.3 mg tablet 0.3 mg PO QDAY 04/2805/11/21 History (Premarin) losartan 50 mg tablet 50 mg PO BID 05/11/21 History nitroglycerin 0.4 mg sublingual 0.4 mg buccal PRN PRN Chest Pain 05/11/21 05/11/21 History tablet rosuvastatin 5 mg tablet 5 mg PO HS 05/11/21 05/11/21 History sulfamethoxazole 800 1 tab PO BID 05/11/21 History mg-trimethoprim 160 mg tablet Allergies Allergy/AdvReac Type Severity Reaction Status Date / Time morphine Allergy Intermediate Diarrhea Verified 08/06/25 13:12 Visit Medications Acetaminophen (Acetaminophen 325 Mg Tablet) 650 mg PO Q6H PRN PRN Reason: Fever >101.5 Stop: 09/05/25 20:20 Acetaminophen (Acetaminophen 325 Mg Tablet) 650 mg PO Q6H PRN PRN Reason: PAIN SCALE 1-3 (mild Stop: 09/05/25 20:20 Heparin Sodium (Porcine) (Heparin Sod Inj 5000 Unit/Ml Vial) 5,000 unit SC Q8HR KILLIAN Stop: 08/20/25 21:59 Sodium Chloride (Ns) 1,000 mls @ 80 mls/hr IV .[id number] KILLIAN Stop: 09/05/25 20:27 Ondansetron HCl (Ondansetron Inj 2 Mg/Ml Inj 2 Ml) 4 mg IVP Q6H PRN; Protocol PRN Reason: NAUSEA OR VOMITING Stop: 09/05/25 20:20 Discontinued Medications Lactated Ringer's (Lactated Ringers) 1,000 mls @ 999 mls/hr IV .Q1H1M ONE Stop: 08/06/25 13:45 Last Infusion: 08/06/25 15:03 Dose: Infused Assessment & Plan Plan Ms. Meneses is a 70 y/o female with PMHx CHF, hypothyroidism, HTN,CAD, renal cell carcinoma, fibromyalgia, dyslipidemia, dementia, chronic low back pain who presented to the ED on 08/06 after a fall. Admitted to obs for elevated CK 2/2 fall. #Ground level fall #Elevated CK Patient does not remember event. Per patient's , patient was on the floor for ~[address] head, XR hip/pelvis negative Given 1L NS in ED DDX: polypharmacy, cardiac etiology, dementia Plan: - Trend CK after IVF (1L NS) - Monitor fluid status given hx CHF #b/l LE pain TTP of b/l calves Plan: - LE Doppler to assess for DVT #CHF Chronic No crackles on lung auscultation, 2+ b/l LE pitting edema BNP WNL Plan: - Conservative IVF management #Renal cell carcinoma dx 2011, recent laparoscopic surgery R kidney Plan: - continue to follow w/ outpatient oncology at [facility] #Hypothyroidism Plan: - Pending med rec #Hypertension Plan: - Pending med rec #Hyperlipidemia Home med Rosuvastatin 5 mg PO QHS, pending med rec Plan: - Atorvastatin 10 mg PO QHS #CAD No current chest pain/pressure Plan: - Pending med rec - Aspirin 81 mg PO daily #Fibromyalgia #Chronic low back pain Meds listed in EMR: Xanax, [place] Plan: - Pending med rec, hold benzo and opioids given fall #Dementia, unspecified Plan: - f/u outpatient neurology Checklist Dispo: Admit to obs, pending downtrending CK Diet: cardiac Bowel Reg: doc/senna daily killian VTE ppx: heparin subQ GI ppx: n/a Pain mgmt: Tylenol PRN Code status: limited - ok CPR, DNI Plan discussed with Dr. Thompson and Dr. Mary Ellen Harris MD PGY1
[2025-08-06] MEDS: HEPARIN SOD INJ 5000 UNIT/ML VIAL SC (22:29)
--- NOTE | 2025-08-06 22:37 | PC.NURSE ---
REPORT GIVEN TO NICKY
[2025-08-07] VITALS (9 sets, daily range): BP systolic 124–177; BP diastolic 75–98; PULSE 65–101; RESP 18–20; TEMP 36–37.1; O2SAT 95–98
[2025-08-07] MEDS: ACETAMINOPHEN 325 MG TABLET 650 MG PO ×3 (00:49→18:42)
[2025-08-07] MEDS: HEPARIN SOD INJ 5000 UNIT/ML VIAL SC ×3 (05:03→21:07)
[2025-08-07 05:46] LABS: Basophils # (Auto) 0.0 Thou/mm3 (0.0-0.2); Basophils % (Auto) 0 % (0-2.5); Eosinophils # (Auto) 0.1 Thou/mm3 (0.0-0.5); Eosinophils % (Auto) 2 % (0-10); Hematocrit 35.8 % (36.0-46.0); Hemoglobin 12.1 g/dL (12.0-16.0); Immature Granulocytes Auto 0.02 Thou/mm3 (0.00-0.00); Lymphocytes # (Auto) 1.6 Thou/mm3 (1.0-4.8); Lymphocytes % (Auto) 20 % (10-50); Mean Corpuscular HGB Conc 33.8 g/dl (31.0-37.0); Mean Corpuscular Hemoglobin 30.3 pg (25.0-35.0); Mean Corpuscular Volume 90 fL (80-100); Monocytes # (Auto) 0.6 Thou/mm3 (0.0-0.8); Monocytes % (Auto) 8 % (0-12); Neutrophils # (Auto) 5.8 Thou/mm3 (1.8-7.7); Neutrophils % (Auto) 71 % (37-80); Nucleated Red Blood Cell # 0.00 Thou/mm3 (0.00-0.00); Nucleated Red Blood Cell % 0 /100 WBC (0); Platelet Count 183 Thou/mm3 (140-440); RDW Standard Deviation 43.0 fL (36.4-46.3); Red Blood Count 3.99 Miln/mm3 (4.00-5.20); White Blood Count 8.2 Thou/mm3 (3.6-11.0)
[2025-08-07 06:08] LABS: Anion Gap 12 (7-16); BUN/Creatinine Ratio 10 Ratio (12-20); Blood Urea Nitrogen 9 mg/dL (9-23); Calcium 9.0 mg/dL (8.3-10.6); Carbon Dioxide 25.6 mMol/L (20.0-31.0); Chloride 104 mMol/L (98-107); Creatine Kinase 1028 U/L (34-171); Creatinine (Component) 0.9 mg/dL (0.6-1.3); Estimated Creatinine Clearance 75.9 mL/min (>60); Glucose 106 mg/dL (74-106); Magnesium 2.0 mg/dL (1.6-2.6); Osmolality,Calculated 281 (275-295); Phosphorous 3.7 mg/dL (2.4-5.1); Potassium 3.8 mMol/L (3.4-5.1); Sodium 142 mMol/L (136-145); eGFR > 60 See Note
--- NOTE | 2025-08-07 08:33 | PC.SS ---
Follow up note: Syncope work up. ECHO pending.
[2025-08-07] MEDS: LEVOTHYROXINE SODIUM 100 MCG TABLET PO (09:37)
[2025-08-07] MEDS: ASPIRIN EC 81 MG TABEC PO (09:37)
[2025-08-07] MEDS: SENNA/DOCUSATE SOD 1 TAB TABLET PO (09:37)
[2025-08-07 11:22] LABS: Thyroid Stimulating Hormone 0.04 uIU/mL (0.55-4.78)
--- NOTE | 2025-08-07 11:36 | PC.SS ---
SS met with patient regarding her d/c plan. Pt is alert/oriented. Pt was admitted for Fall, Elevated CK. Pt confirmed demographic and contact information is correct on facesheet. Pt resides with . Pt ambulates using a walker. Pt is ok with all ADLs. Patient?s pharmacy of choice is [facility]. Pt named her , Paula Meneses medical decision maker if she is unable. SS provided verbal choices for d/c to home or SNF. Patient?s choice is to return home upon d/c. Pt states she is not diabetic and is not on dialysis. Pt followed up with PCP in May 2025. D/C plan: Return home Next of Kin: Paula Meneses, , phone# [phone] PCP: Dr. Vazquez Address: Correct on facesheet
[2025-08-07 12:57] LABS: Free T4 (Free Thyroxine) 1.65 ng/dL (0.89-1.76)
--- NOTE | 2025-08-07 13:57 | ESPR_ITS ---
<Statement entered by Leno Olivares MD - 08/07/25 17:41> Patient seen and assessed in hospital bed denies having any concerning symptoms at this time. Patient does not have dementia and is able to answer questions appropriately. Patient's contour sander Dr. Crespo follows the patient closely and recent echo results outside of hospital are listed as below. Cardiology consulted for continued care and recommendations. Patient continues to improve but we will obtain PT consult for recommendations regarding placement. Will continue monitoring and expect discharge within the next 24 hours. I have personally seen and examined the patient. I agree with the resident's assessment and plan as documented below. Leon Olivares DO PGY-2 Internal Medicine - G[facility] Documentation for date of: 08/07/25 Subjective Subjective Interval history: Patient seen at bedside. No acute overnight events. Patient said the fall resulted from her being in a hurry due to wanting to go to the bathroom to go pee, slid and fell onto the toilet, hit her head and extremities. Patient denies history of dementia. Mentions that she takes Xanax twice daily and has been taking it chronically for many years. Exam Vital Signs Temp Pulse Resp BP Pulse Ox O2 Del Method 97.2 F 91 20 169/91 H 95 Room Air 08/07/25 12:00 08/07/25 12:00 08/07/25 12:00 08/07/25 12:00 08/07/25 12:00 08/07/25 12:00 Narrative Exam General: No acute distress, conversing well Eye: PERRL, EOMI, normal conjunctiva, no scleral icterus HENT: Normocephalic, atraumatic, normal hearing, moist oral mucosa, hoarse voice Neck: Supple, non-tender, no JVD, no lymphadenopathy Lungs: Clear to auscultation bilaterally, non-labored respirations, symmetric chest rise, no use of accessory muscles Heart: Normal S1 and S2. Normal rate and regular rhythm, no murmurs, rubs gallops. Peripheral pulses intact bilaterally, capillary refill brisk distally. 2+ b/l LE with pain out of proportion Abdomen: Soft, non-tender, non-distended, normal bowel sounds. No guarding or rebound tenderness. Musculoskeletal: Normal range of motion and strength, no tenderness or swelling Skin: Skin is warm, dry, no rashes or lesions. Neurologic: Alert, awake and oriented x3. CN II-XII grossly intact. No focal neuro deficits. No signs of meningeal irritation noted. Psychiatric: Cooperative, appropriate mood and affect Objective Labs 08/11/25 05:11 08/11/25 05:11 Labs: Laboratory Results - last 24 hr 08/06/25 08/06/25 08/06/25 13:20 15:19 15:45 WBC RBC Hgb Hct MCV MCH MCHC RDW Std Deviation Plt Count Neut % (Auto) Lymph % (Auto) Webb % (Auto) Eos % (Auto) Baso % (Auto) Neut # (Auto) Lymph # (Auto) Webb # (Auto) Eos # (Auto) Baso # (Auto) Immature Gran # (Auto) Absolute Nucleated RBC Immature Gran % Nucleated RBC % PT INR APTT Sodium 142 Potassium 3.8 Chloride 101 Carbon Dioxide 27.6 Anion Gap 13 BUN 11 Creatinine 1.0 Estim Creat Clear Calc 65.1 eGFR 60 BUN/Creatinine Ratio 11 L Glucose 118 H Calculated Osmolality 283 Calcium 9.8 Corrected Calcium 9.8 Phosphorus 4.2 Magnesium 2.1 Total Bilirubin 1.1 AST 54 H ALT 27 Alkaline Phosphatase 74 Lactate Dehydrogenase 308 H Total Creatine Kinase 1868 H Troponin I < 0.020 B-Natriuretic Peptide 38 Total Protein 6.7 Albumin 4.5 Globulin 2.2 L Albumin/Globulin Ratio 2.0 Lipase 22 Procalcitonin 0.09 TSH Free T4 Ur Collection Type Catheter Urine Color Yellow Urine Clarity Clear Urine pH 5.5 Ur Specific [place] 1.018 Urine Protein Trace Urine Glucose (UA) Negative Urine Ketones 2+ A Urine Blood 1+ A Urine Nitrite Negative Urine Bilirubin Negative Urine Urobilinogen (Auto) Negative Ur Leukocyte Esterase Negative Urine RBC < 1 Urine WBC 1 Ur Squamous Epith Cells < 1 Urine Bacteria None Ur Culture Indicated? Not Indicated 08/06/25 08/07/25 15:48 04:31 WBC 8.2 RBC 3.99 L Hgb 12.1 Hct 35.8 L MCV 90 MCH 30.3 MCHC 33.8 RDW Std Deviation 43.0 Plt Count 183 D Neut % (Auto) 71 Lymph % (Auto) 20 Webb % (Auto) 8 Eos % (Auto) 2 Baso % (Auto) 0 Neut # (Auto) 5.8 Lymph # (Auto) 1.6 Webb # (Auto) 0.6 Eos # (Auto) 0.1 Baso # (Auto) 0.0 Immature Gran # (Auto) 0.02 H Absolute Nucleated RBC 0.00 Immature Gran % 0 Nucleated RBC % 0 PT 11.0 INR 1.0 APTT 25.2 Sodium 142 Potassium 3.8 Chloride 104 Carbon Dioxide 25.6 Anion Gap 12 BUN 9 Creatinine 0.9 Estim Creat Clear Calc 75.9 eGFR > 60 BUN/Creatinine Ratio 10 L Glucose 106 Calculated Osmolality 281 Calcium 9.0 Corrected Calcium Phosphorus 3.7 Magnesium 2.0 Total Bilirubin AST ALT Alkaline Phosphatase Lactate Dehydrogenase Total Creatine Kinase 1028 H D Troponin I B-Natriuretic Peptide Total Protein Albumin Globulin Albumin/Globulin Ratio Lipase Procalcitonin TSH 0.04 L* Free T4 1.65 Ur Collection Type Urine Color Urine Clarity Urine pH Ur Specific [place] Urine Protein Urine Glucose (UA) Urine Ketones Urine Blood Urine Nitrite Urine Bilirubin Urine Urobilinogen (Auto) Ur Leukocyte Esterase Urine RBC Urine WBC Ur Squamous Epith Cells Urine Bacteria Ur Culture Indicated? Quality Measures Quality Measures none Advance care planning discussed with:: patient Assessment & Plan Assessment Current Active Medications: Generic Name Dose Route Start Last Admin Trade Name Freq PRN Reason Stop Dose Admin Acetaminophen 650 mg 08/06/25 20:21 Acetaminophen 325 Mg Tablet PO 09/05/25 20:20 Q6H PRN Fever >101.5 Acetaminophen 650 mg 08/06/25 20:21 08/07/25 12:28 Acetaminophen 325 Mg Tablet PO 09/05/25 20:20 650 mg Q6H PRN Administration PAIN SCALE 1-3 (mild Alprazolam 0.5 mg 08/07/25 12:15 08/07/25 12:28 Alprazolam 0.25 Mg Tablet PO 08/12/25 12:14 0.5 mg BID KILLIAN Administration Aspirin 81 mg 08/07/25 09:00 08/07/25 09:37 Aspirin Ec 81 Mg Tabec PO 09/06/25 08:59 81 mg QDAY KILLIAN Administration Atorvastatin Calcium 10 mg 08/07/25 21:00 Atorvastatin Calcium 10 Mg Tablet PO 09/06/25 20:59 HS KILLIAN Heparin Sodium (Porcine) 5,000 unit 08/06/25 22:00 08/07/25 05:03 Heparin Sod Inj 5000 Unit/Ml Vial SC 08/20/25 21:59 5,000 unit Q8HR KILLIAN Administration Levothyroxine Sodium 100 mcg 08/07/25 09:00 08/07/25 09:37 Levothyroxine Sodium 100 Mcg Tablet PO 09/06/25 08:59 100 mcg DAILY KILLIAN Administration Ondansetron HCl 4 mg 08/06/25 20:21 Ondansetron Inj 2 Mg/Ml Inj 2 Ml IVP 09/05/25 20:20 Q6H PRN NAUSEA OR VOMITING Protocol Sennosides 1 tab 08/07/25 09:00 08/07/25 09:37 Senna/Docusate Sod 1 Tab Tablet PO 09/06/25 08:59 1 tab QDAY KILLIAN Administration Protocol Plan 70 y/o female with PMHx CHF, hypothyroidism, HTN,CAD, renal cell carcinoma, fibromyalgia, dyslipidemia, dementia, chronic low back pain who presented to the ED on 08/06 after a fall. Admitted to obs for elevated CK 2/ fall. #Syncope workup #Rule out cardiac cause Unwitnessed fall, was on the ground for 5 hours, hit head and extremities CT head, XR hip/pelvis negative Given 1L NS in ED DDX: polypharmacy, cardiac etiology Patient denies history of dementia Plan: ?Orthostatic vitals ?Echocardiogram recently done this year and showed relatively normal heart function ?Dr. Crespo consulted to rule out cardiac cause of syncope, see recommendations #Rhabdomyolysis, resolving Initial CK 1868 which improved to 1028 after 1L of fluid Electrolytes stable Creatinine 0.9 Plan ? Monitor #History of CHF Last echo done 01/27/2025 and showed EF 56% with LV diastolic dysfunction. Mild to moderate aortic regurgitation. Lexiscan 02/20 was also normal No crackles on lung auscultation, 2+ b/l LE pitting edema BNP WNL Takes carvedilol 12.5 mg twice daily Plan: - Dr. Crespo consulted to rule out cardiac cause of syncope, see recommendations #Bilateral LE pain TTP of b/l calves Plan: - LE Doppler to assess for DVT, negative #Renal cell carcinoma, bilateral dx 2011, recent laparoscopic surgery R kidney Plan: - continue to follow w/ outpatient oncology at [facility] #Hypothyroidism TSH 0.04, free T41.65 ?Resume levothyroxine home dose 100 mcg daily #Hypertension Home med losartan 50 mg twice daily ? Monitor blood pressure #Hyperlipidemia Home med Rosuvastatin 5 mg PO QHS, pending med rec Plan: - Atorvastatin 10 mg PO QHS #History of CAD No current chest pain/pressure Plan: - Aspirin 81 mg PO daily ?Atorvastatin 10 mg daily #Fibromyalgia #Chronic low back pain Patient takes Xanax 2 mg twice daily and Greer 10/325 1.5 tabs daily Plan: -Xanax 0.5 mg twice daily Health maintenance: Dispo: MedSurg Diet: cardiac Bowel Reg: doc/senna daily killian VTE ppx: heparin subQ GI ppx: n/a Pain mgmt: Tylenol PRN Code status: limited - ok CPR, DNI Case discussed with my attending Dr. Story, and senior resident, Dr. Elise Garcia MD PGY-1 Attending Provider Attestation/Addendum I have examined the patient, reviewed labs and imaging findings, discussed the case with the resident(s), and reviewed entered orders. I agree with the plan of care as outlined in this note. Dr. Jez MD
--- NOTE | 2025-08-07 14:28 | PC.SS ---
SS informed pt was had fallen and was reported down for approximately 5 hours. Spouse unable to assist pt off the floor. Patient's spouse checking on pt until arrival of EMS. SS discussed event with attending physician, Dr. Story. It was determined that APS report not warranted at this current time.
--- NOTE | 2025-08-07 16:56 | ESCONSULT_ITS ---
<Statement entered by Liberty Crespo MD - 08/09/25 19:06> I personally examined the patient evaluated who is well-known to me has longstanding of CAD multiple angioplasty stent placement came to the hospital frequent falls no clear episodes of syncope but she is extremely weak general weakness. Cardiovascular JIM Stable blood pressure slightly elevated will continue the current medications for hypertension management admitted the patient with PGY 2 Dr. Sai OCSME agree with treatment plan recommendation as documented we will continue to monitor the patient closely while in the hospital HPI Data of Consult Requesting Physician: Melvin Story MD Admitting Provider: Jovi Hyde MD Attending Provider: Melvin Story MD Primary Care Provider: Giovany Vazquez MD Consult Narrative History of present illness: Danay Meneses is a 70-year-old female with a history of CAD s/p multiple stents in 2012 and 2017 for RCA/OM branch of LCx/mid-LAD, HFpEF (EF 56% 01/2025), hypertension, hyperlipidemia, hypothyroidism s/p thyroidectomy 1994, renal cell carcinoma s/p nephrectomy and followed at [facility], fibromyalgia and chronic low back pain who presented after ground-level fall. She lives at home with her and had an unwitnessed fall in the restroom and woke up on the floor, uanble to recall the event. heard a loud noise, checked on patient, and she was on the ground but could not lift her up. Prior to calling EMS, patient was on ground for approximately 5 hours and was hallucinating during this time. No chest pain, shortness of breath, palpitations, numbness, or weakness noted. In the ED, initial vitals showed BP 162/93 but was otherwise stable. CBC unremarkable, chem panel showed LDH 308 and creatine kinase of 1800 but trops negative and was otherwise unremarkable. CT head negative, hip/pelvis XR negative, CXR negative, EKG showed sinus rhythm. She was given 1 L IVF bolus in the ED. Cardiology consulted given history of CAD in setting of syncope. Medications: aspirin 81 mg, losartan 50 mg BID, Coreg 25 mg BID, nitroglycerin PRN, torsemide 20 mg daily, levothyroine 100 mcg, alprazolam 2 mg BID, norco 10 1.5 tablet daily FHx: father decreased at 84 years, mother at 83 years SHx: denies alcohol, tobacco, or illicit drug use; lives at home with PSHx: nephectomy in 2012, CAD s/p multiple stents in 2012 and 2018, thyroidectomy 1994, hysterectomy 1995 cc:: cc: Melvin Story MD Review of Systems Review of Systems Systems Reviewed: All systems reviewed, normal except as documented Exam Vital Signs Temp Pulse Resp BP Pulse Ox O2 Del Method 97.0 F 88 18 150/75 H 95 Room Air 08/07/25 16:00 08/07/25 16:00 08/07/25 16:00 08/07/25 16:00 08/07/25 16:00 08/07/25 16:00 Narrative Exam General: AOx3, no acute distress, able to speak full sentences HEENT: NC/AT, mucous membranes moist, bilateral sclera anicteric, significant hair on pillow Cardiovascular: regular rate and rhythm, S1/S2 present, no murmurs appreciated Pulmonary: clear to auscultation bilaterally, no rales/rhonchi/wheezes Abdominal: soft, non-tender, non-distended, no rebound/guarding, normal bowel sounds present Musculoskeletal: normal ROM, no peripheral edema Skin: warm and dry, intact, no rashes Neuro: CN II-XII intact, no focal deficits Results Labs 08/08/25 05:03 08/08/25 05:03 Labs: Short CBC 08/07/25 Range/Units 04:31 WBC 8.2 (3.6-11.0) Thou/mm3 Hgb 12.1 (12.0-16.0) g/dL Hct 35.8 L (36.0-46.0) % Plt Count 183 D (140-440) Thou/mm3 BMP 08/07/25 04:31 Sodium 142 Potassium 3.8 Chloride 104 Carbon Dioxide 25.6 BUN 9 Creatinine 0.9 Glucose 106 Calcium 9.0 Cardiac Enzymes 08/06/25 08/07/25 Range/Units 15:45 04:31 Total Creatine Kinase 1868 H 1028 H D (34-171) U/L Quality Measures Quality Measures none Advance care planning discussed with:: patient Medications Home Medications and Allergies Home Medications ?Medication ?Instructions ?Recorded ?Confirmed ?Type alprazolam 2 mg tablet (Xanax) 2 mg PO BID #0 tabs 08/06/25 History aspirin 81 mg tablet 81 mg PO HS ##0 09/17/1507/23 History hydrocodone 10 mg-acetaminophen 1.5 tab PO QDAY #0 tab s 09/17/15 08/06/25 History 325 mg tablet levothyroxine 100 mcg tablet 100 mcg PO QDAY Thyroid # 0 tabs 09/17/15 08/06/25 History carvedilol 12.5 mg tablet 12.5 mg PO BID 05/11/2107/23 History clopidogrel 75 mg tablet 75 mg PO QDAY 05/11/2108/06 History conjugated estrogens 0.3 mg tablet 0.3 mg PO QDAY 04/2808/06/25 History (Premarin) losartan 50 mg tablet 50 mg PO BID 05/11/21 History nitroglycerin 0.4 mg sublingual 0.4 mg buccal PRN PRN Chest Pain 05/11/21 08/06/25 History tablet rosuvastatin 5 mg tablet 5 mg PO HS 05/11/21 08/06/25 History sulfamethoxazole 800 1 tab PO BID 05/11/21 History mg-trimethoprim 160 mg tablet Allergies Allergy/AdvReac Type Severity Reaction Status Date / Time morphine Allergy Intermediate Diarrhea Verified 08/06/25 13:12 Visit Medications Acetaminophen (Acetaminophen 325 Mg Tablet) 650 mg PO Q6H PRN PRN Reason: Fever >101.5 Stop: 09/05/25 20:20 Acetaminophen (Acetaminophen 325 Mg Tablet) 650 mg PO Q6H PRN PRN Reason: PAIN SCALE 1-3 (mild Stop: 09/05/25 20:20 Last Admin: 08/07/25 12:28 Dose: 650 mg Alprazolam (Alprazolam 0.25 Mg Tablet) 0.5 mg PO BID RONEY Stop: 08/12/25 12:14 Last Admin: 08/07/25 12:28 Dose: 0.5 mg Aspirin (Aspirin Ec 81 Mg Tabec) 81 mg PO QDAY RONEY Stop: 09/06/25 08:59 Last Admin: 08/07/25 09:37 Dose: 81 mg Atorvastatin Calcium (Atorvastatin Calcium 10 Mg Tablet) 10 mg PO HS RONEY Stop: 09/06/25 20:59 Heparin Sodium (Porcine) (Heparin Sod Inj 5000 Unit/Ml Vial) 5,000 unit SC Q8HR RONEY Stop: 08/20/25 21:59 Last Admin: 08/07/25 14:31 Dose: 5,000 unit Levothyroxine Sodium (Levothyroxine Sodium 100 Mcg Tablet) 100 mcg PO ACBR [facility] Stop: 09/07/25 05:59 Ondansetron HCl (Ondansetron Inj 2 Mg/Ml Inj 2 Ml) 4 mg IVP Q6H PRN; Protocol PRN Reason: NAUSEA OR VOMITING Stop: 09/05/25 20:20 Sennosides (Senna/Docusate Sod 1 Tab Tablet) 1 tab PO QDAY RONEY; Protocol Stop: 09/06/25 08:59 Last Admin: 08/07/25 09:37 Dose: 1 tab Discontinued Medications Lactated Ringer's (Lactated Ringers) 1,000 mls @ 999 mls/hr IV .Q1H1M ONE Stop: 08/06/25 13:45 Last Infusion: 08/06/25 15:03 Dose: Infused Sodium Chloride (Ns) 1,000 mls @ 80 mls/hr IV .[id number] [facility] Stop: 09/05/25 20:27 Last Admin: 08/06/25 20:49 Dose: Not Given Levothyroxine Sodium (Levothyroxine Sodium 100 Mcg Tablet) 100 mcg PO DAILY [facility] Stop: 09/06/25 08:59 Last Admin: 08/07/25 09:37 Dose: 100 mcg Assessment & Plan Plan Danay Meneses is a 70-year-old female with a history of CAD s/p multiple stents in 2012 and 2017 for RCA/OM branch of LCx/mid-LAD, HFpEF (EF 56% 01/2025), hypertension, hyperlipidemia, hypothyroidism s/p thyroidectomy 1994, renal cell carcinoma s/p nephrectomy and followed at [facility], fibromyalgia and chronic low back pain who is admitted for syncope, rhabdomyolysis, and cardiology consulted given history of CAD in setting of syncope. #Syncope #Ground-level fall #History of CAD s/p stents in 2012 and 2017 Presents after ground-level fall that patient cannot recall and was on the floor for approximately 5 hours prior to EMS contact. Denies any chest pain, shortness of breath, palpitations, weakness, or numbness. Unlikely to be cardiac-related given history, negative troponins, and normal EKG findings. CT head, hip/pelvic XR, and CXR all unremarkable. She had complete, non-invasive cardiac work-up as outpatient on 01/2025 that included an echo that showed EF of 56% with diastolic dysfunction and lexiscan that was unremarkable. ? Continue home aspirin 81 mg daily ? Continue Home rosuvastatin 5 mg or equivalent at bedtime #HFpEF (EF 56% on 01/2025) Known to have chronic lower extremity edema and is on torsemide 20 mg outpatient but is not fluid overload at this time given lack of crackles, edema, and JVD. ? Continue to follow-up outpatient ? Can give gentle IVF per discretion of primary team for rhabdomyolysis, but may not be needed given improvement in CK #Hypertension Per clinic note on 02/2025 patient takes carvedilol 25 mg BID, losartan 50 mg BID, and torsemide 20 mg daily at home ? Continue home meds per primary team discretion #Rhabdomyolysis #Renal cell carcinoma #Hypothyroidism #Hypertension #Hyperlipidemia #Fibromyalgia #Chronic low back pain #Anxiety ? Continue management per primary team ----- Plan discussed with attending physician Dr. Zak Cosme MD PGY-2 Internal Medicine
[2025-08-07] MEDS: ATORVASTATIN CALCIUM 10 MG TABLET PO (20:49)
--- NOTE | 2025-08-07 20:58 | PC.NURSE ---
MD Rich made aware of BP 174/89, HR 89, will put order for BP meds
[2025-08-07] MEDS: LOSARTAN POTASSIUM 25 MG TABLET 50 MG PO (21:07)
[2025-08-08] VITALS (9 sets, daily range): BP systolic 132–173; BP diastolic 63–84; PULSE 79–87; RESP 16–18; TEMP 36.1–37.2; O2SAT 93–97
[2025-08-08] MEDS: ACETAMINOPHEN 325 MG TABLET 650 MG PO ×2 (01:27→20:30)
[2025-08-08] MEDS: HEPARIN SOD INJ 5000 UNIT/ML VIAL SC ×3 (05:07→21:27)
[2025-08-08] MEDS: LEVOTHYROXINE SODIUM 100 MCG TABLET PO (05:07)
[2025-08-08 05:36] LABS: Basophils # (Auto) 0.0 Thou/mm3 (0.0-0.2); Basophils % (Auto) 0 % (0-2.5); Eosinophils # (Auto) 0.2 Thou/mm3 (0.0-0.5); Eosinophils % (Auto) 3 % (0-10); Hematocrit 33.8 % (36.0-46.0); Hemoglobin 11.1 g/dL (12.0-16.0); Immature Granulocytes Auto 0.02 Thou/mm3 (0.00-0.00); Lymphocytes # (Auto) 1.6 Thou/mm3 (1.0-4.8); Lymphocytes % (Auto) 27 % (10-50); Mean Corpuscular HGB Conc 32.8 g/dl (31.0-37.0); Mean Corpuscular Hemoglobin 28.8 pg (25.0-35.0); Mean Corpuscular Volume 88 fL (80-100); Monocytes # (Auto) 0.4 Thou/mm3 (0.0-0.8); Monocytes % (Auto) 7 % (0-12); Neutrophils # (Auto) 3.6 Thou/mm3 (1.8-7.7); Neutrophils % (Auto) 62 % (37-80); Nucleated Red Blood Cell # 0.00 Thou/mm3 (0.00-0.00); Nucleated Red Blood Cell % 0 /100 WBC (0); Platelet Count 209 Thou/mm3 (140-440); RDW Standard Deviation 40.7 fL (36.4-46.3); Red Blood Count 3.85 Miln/mm3 (4.00-5.20); White Blood Count 5.8 Thou/mm3 (3.6-11.0)
[2025-08-08 06:02] LABS: Anion Gap 13 (7-16); BUN/Creatinine Ratio 12 Ratio (12-20); Blood Urea Nitrogen 11 mg/dL (9-23); Calcium 9.2 mg/dL (8.3-10.6); Carbon Dioxide 26.5 mMol/L (20.0-31.0); Chloride 104 mMol/L (98-107); Creatinine (Component) 0.9 mg/dL (0.6-1.3); Estimated Creatinine Clearance 75.9 mL/min (>60); Glucose 117 mg/dL (74-106); Magnesium 2.0 mg/dL (1.6-2.6); Osmolality,Calculated 285 (275-295); Phosphorous 3.4 mg/dL (2.4-5.1); Potassium 3.6 mMol/L (3.4-5.1); Sodium 143 mMol/L (136-145); eGFR > 60 See Note
[2025-08-08] MEDS: SENNA/DOCUSATE SOD 1 TAB TABLET PO (09:22)
[2025-08-08] MEDS: LOSARTAN POTASSIUM 25 MG TABLET 50 MG PO (09:22)
[2025-08-08] MEDS: ASPIRIN EC 81 MG TABEC PO (09:22)
--- NOTE | 2025-08-08 10:44 | PC.SS ---
Addendum entered by LIZZETH Izaguirre 08/08/25 16:38: JAVA PROGRAMMING PROFESSOR filed APS report in patients physical chart. Addendum entered by LIZZETH Izaguirre 08/08/25 14:42: JAVA PROGRAMMING PROFESSOR emailed [facility] department to verify if patient would qualify for inpatient. Addendum entered by LIZZETH Izaguirre 08/08/25 14:41: JAVA PROGRAMMING PROFESSOR completed verbal APS report for self neglect, JAVA PROGRAMMING PROFESSOR gave verbal report to Kelsie Kelly. JAVA PROGRAMMING PROFESSOR submitted written APS report via fax. Addendum entered by LIZZETH Izaguirre 08/08/25 11:56: JAVA PROGRAMMING PROFESSOR called Sue with [facility] to verify that they would accept patient as patient is currently observation. Sue stated that they would not be able to accept patient unless she has 3 midnight inpatient stay. SS made team B doctors aware. SS attempted to contact [facility], they were not available. Addendum entered by LIZZETH Izaguirre 08/08/25 11:19: JAVA PROGRAMMING PROFESSOR spoke to Sue at [facility] who stated they can accept patient once patient meets 3 midnight stay. Addendum entered by LIZZETH Izaguirre 08/08/25 11:16: JAVA PROGRAMMING PROFESSOR placed phone call to Chula from [facility] who stated she is working on level 2 [facility]. JAVA PROGRAMMING PROFESSOR spoke to Sue at [facility]. Addendum entered by LIZZETH Izaguirre 08/08/25 10:54: Patient stated she prefers [facility] for SNF placement. JAVA PROGRAMMING PROFESSOR submitted SNF referral. Original Note: JAVA PROGRAMMING PROFESSOR met with patient at bedside to discuss d/c planning, patient stated she is currently taking alprazolam JAVA PROGRAMMING PROFESSOR verified with bedside nurse that patient is taking that medication, bedside nurse Tala confirmed patient is taking alprazolam. JAVA PROGRAMMING PROFESSOR completed [facility], level 2 required.
--- NOTE | 2025-08-08 13:03 | PD.RESPRO ---
Documentation for date of: 08/08/25 Subjective Subjective Interval history: No acute overnight events. Seen and examined at bedside and patient resting comfortably in bed and does not have any complaints. Denies any chest discomfort or shortness of breath. Currently pending placement to SNF given recent fall/syncopal episode. Otherwise, vital signs are stable and labs unremarkable. Exam Vital Signs Temp Pulse Resp BP Pulse Ox O2 Del Method 97.2 F 87 16 170/83 H 96 Room Air 08/08/25 11:20 08/08/25 12:03 08/08/25 11:20 08/08/25 12:03 08/08/25 11:20 08/08/25 11:20 Narrative Exam General: AOx3, no acute distress, able to speak full sentences HEENT: NC/AT, mucous membranes moist, bilateral sclera anicteric, significant hair on pillow Cardiovascular: regular rate and rhythm, S1/S2 present, no murmurs appreciated Pulmonary: clear to auscultation bilaterally, no rales/rhonchi/wheezes Abdominal: soft, non-tender, non-distended, no rebound/guarding, normal bowel sounds present Musculoskeletal: normal ROM, no peripheral edema Skin: warm and dry, intact, no rashes Neuro: CN II-XII intact, no focal deficits Objective Labs 08/08/25 05:03 08/08/25 05:03 Labs: Laboratory Results - last 24 hr 08/08/25 05:03 WBC 5.8 RBC 3.85 L Hgb 11.1 L Hct 33.8 L MCV 88 MCH 28.8 MCHC 32.8 RDW Std Deviation 40.7 Plt Count 209 Neut % (Auto) 62 Lymph % (Auto) 27 [place] % (Auto) 7 Eos % (Auto) 3 Baso % (Auto) 0 Neut # (Auto) 3.6 Lymph # (Auto) 1.6 [place] # (Auto) 0.4 Eos # (Auto) 0.2 Baso # (Auto) 0.0 Immature Gran # (Auto) 0.02 H Absolute Nucleated RBC 0.00 Immature Gran % 0 Nucleated RBC % 0 Sodium 143 Potassium 3.6 Chloride 104 Carbon Dioxide 26.5 Anion Gap 13 BUN 11 Creatinine 0.9 Estim Creat Clear Calc 75.9 eGFR > 60 BUN/Creatinine Ratio 12 Glucose 117 H Calculated Osmolality 285 Calcium 9.2 Phosphorus 3.4 Magnesium 2.0 Quality Measures Quality Measures none Advance care planning discussed with:: patient Assessment & Plan Assessment Current Active Medications: Generic Name Dose Route Start Last Admin Trade Name Nikhilq PRN Reason Stop Dose Admin Acetaminophen 650 mg 08/06/25 20:21 08/07/25 18:42 Acetaminophen 325 Mg Tablet PO 09/05/25 20:20 650 mg Q6H PRN Administration Fever >101.5 Acetaminophen 650 mg 08/06/25 20:21 08/08/25 01:27 Acetaminophen 325 Mg Tablet PO 09/05/25 20:20 650 mg Q6H PRN Administration PAIN SCALE 1-3 (mild Hydrocodone Bitart/Acetaminophen 1.5 tab 08/08/25 12:15 08/08/25 12:20 Hydrocodone/Apap 10/325 Tab PO 08/13/25 12:14 1.5 tab QDAY RONEY Administration Alprazolam 0.5 mg 08/07/25 12:15 08/08/25 09:21 Alprazolam 0.25 Mg Tablet PO 08/12/25 12:14 0.5 mg BID RONEY Administration Aspirin 81 mg 08/07/25 09:00 08/08/25 09:22 Aspirin Ec 81 Mg Tabec PO 09/06/25 08:59 81 mg QDAY RONEY Administration Atorvastatin Calcium 10 mg 08/07/25 21:00 08/07/25 20:49 Atorvastatin Calcium 10 Mg Tablet PO 09/06/25 20:59 10 mg HS RONEY Administration Carvedilol 12.5 mg 08/08/25 11:45 08/08/25 12:03 Carvedilol 12.5 Mg Tablet PO 09/07/25 11:44 12.5 mg BIDWM RONEY Administration Heparin Sodium (Porcine) 5,000 unit 08/06/25 22:00 08/08/25 05:07 Heparin Sod Inj 5000 Unit/Ml Vial SC 08/20/25 21:59 5,000 unit Q8HR RONEY Administration Levothyroxine Sodium 100 mcg 08/08/25 06:00 08/08/25 05:07 Levothyroxine Sodium 100 Mcg Tablet PO 09/07/25 05:59 100 mcg ACBR RONEY Administration Losartan Potassium 50 mg 08/08/25 09:00 08/08/25 09:22 Losartan Potassium 25 Mg Tablet PO 09/07/25 08:59 50 mg QDAY RONEY Administration Ondansetron HCl 4 mg 08/06/25 20:21 Ondansetron Inj 2 Mg/Ml Inj 2 Ml IVP 09/05/25 20:20 Q6H PRN NAUSEA OR VOMITING Protocol Sennosides 1 tab 08/07/25 09:00 08/08/25 09:22 Senna/Docusate Sod 1 Tab Tablet PO 09/06/25 08:59 1 tab QDAY RONEY Administration Protocol Plan Danay Meneses is a 70-year-old female with a history of CAD s/p multiple stents in 2012 and 2017 for RCA/OM branch of LCx/mid-LAD, HFpEF (EF 56% 01/2025), hypertension, hyperlipidemia, hypothyroidism s/p thyroidectomy 1994, renal cell carcinoma s/p nephrectomy and followed at [facility] [place], fibromyalgia and chronic low back pain who is admitted for syncope, rhabdomyolysis, and cardiology consulted given history of CAD in setting of syncope. #Syncope #Ground-level fall #History of CAD s/p stents in 2012 and 2017 Presents after ground-level fall that patient cannot recall and was on the floor for approximately 5 hours prior to EMS contact. Denies any chest pain, shortness of breath, palpitations, weakness, or numbness. Unlikely to be cardiac-related given history, negative troponins, and normal EKG findings. CT head, hip/pelvic XR, and CXR all unremarkable. She had complete, non-invasive cardiac work-up as outpatient on 01/2025 that included an echo that showed EF of 56% with diastolic dysfunction and lexiscan that was unremarkable. ? Continue home aspirin 81 mg daily ? Continue Home rosuvastatin 5 mg or equivalent at bedtime #HFpEF (EF 56% on 01/2025) Known to have chronic lower extremity edema and is on torsemide 20 mg outpatient but is not fluid overload at this time given lack of crackles, edema, and JVD. ? Continue to follow-up outpatient ? Can give gentle IVF per discretion of primary team for rhabdomyolysis, but may not be needed given improvement in CK #Hypertension Per clinic note on 02/2025 patient takes carvedilol 25 mg BID, losartan 50 mg BID, and torsemide 20 mg daily at home ? Continue home meds per primary team discretion #Rhabdomyolysis #Renal cell carcinoma #Hypothyroidism #Hypertension #Hyperlipidemia #Fibromyalgia #Chronic low back pain #Anxiety ? Continue management per primary team ----- Plan discussed with attending physician Dr. Zak Cosme MD PGY-2 Internal Medicine
--- NOTE | 2025-08-08 17:19 | ESPR_ITS ---
<Statement entered by Jovi Hyde MD - 08/09/25 12:44> I have discussed and was present for the essential components of the history, physical examination, diagnosis, and treatment plan with the resident. I agree with the patient's care as documented by the resident and amended herein by me. Jovi Hyde MD FACP. Documentation for date of: 08/08/25 Subjective Subjective Interval history: Patient seen at bedside. No acute overnight events. Orthostatic vitals points to orthostatic hypotension. Patient is actually on Coreg 25 mg twice daily. Cardiology seeing her yesterday, cardiology cleared her today. Patient to be discharged to SNF/acute rehab for further rehabilitation work until safe to return home. Exam Vital Signs Temp Pulse Resp BP Pulse Ox O2 Del Method 97.2 F 80 16 132/63 H 96 Room Air 08/08/25 11:20 08/08/25 17:03 08/08/25 11:20 08/08/25 17:03 08/08/25 11:20 08/08/25 11:20 Narrative Exam General: No acute distress, conversing well Eye: PERRL, EOMI, normal conjunctiva, no scleral icterus HENT: Normocephalic, atraumatic, normal hearing, moist oral mucosa, hoarse voice Neck: Supple, non-tender, no JVD, no lymphadenopathy Lungs: Clear to auscultation bilaterally, non-labored respirations, symmetric chest rise, no use of accessory muscles Heart: Normal S1 and S2. Normal rate and regular rhythm, no murmurs, rubs gallops. Peripheral pulses intact bilaterally, capillary refill brisk distally. 2+ b/l LE with pain out of proportion Abdomen: Soft, non-tender, non-distended, normal bowel sounds. No guarding or rebound tenderness. Musculoskeletal: Normal range of motion and strength, no tenderness or swelling Skin: Skin is warm, dry, no rashes or lesions. Neurologic: Alert, awake and oriented x3. CN II-XII grossly intact. No focal neuro deficits. No signs of meningeal irritation noted. Psychiatric: Cooperative, appropriate mood and affect Objective Labs 08/08/25 05:03 08/08/25 05:03 Labs: Laboratory Results - last 24 hr 08/08/25 05:03 WBC 5.8 RBC 3.85 L Hgb 11.1 L Hct 33.8 L MCV 88 MCH 28.8 MCHC 32.8 RDW Std Deviation 40.7 Plt Count 209 Neut % (Auto) 62 Lymph % (Auto) 27 [place] % (Auto) 7 Eos % (Auto) 3 Baso % (Auto) 0 Neut # (Auto) 3.6 Lymph # (Auto) 1.6 [place] # (Auto) 0.4 Eos # (Auto) 0.2 Baso # (Auto) 0.0 Immature Gran # (Auto) 0.02 H Absolute Nucleated RBC 0.00 Immature Gran % 0 Nucleated RBC % 0 Sodium 143 Potassium 3.6 Chloride 104 Carbon Dioxide 26.5 Anion Gap 13 BUN 11 Creatinine 0.9 Estim Creat Clear Calc 75.9 eGFR > 60 BUN/Creatinine Ratio 12 Glucose 117 H Calculated Osmolality 285 Calcium 9.2 Phosphorus 3.4 Magnesium 2.0 Quality Measures Quality Measures none Advance care planning discussed with:: patient Assessment & Plan Assessment Current Active Medications: Generic Name Dose Route Start Last Admin Trade Name Freq PRN Reason Stop Dose Admin Acetaminophen 650 mg 08/06/25 20:21 08/07/25 18:42 Acetaminophen 325 Mg Tablet PO 09/05/25 20:20 650 mg Q6H PRN Administration Fever >101.5 Acetaminophen 650 mg 08/06/25 20:21 08/08/25 01:27 Acetaminophen 325 Mg Tablet PO 09/05/25 20:20 650 mg Q6H PRN Administration PAIN SCALE 1-3 (mild Hydrocodone Bitart/Acetaminophen 1.5 tab 08/08/25 12:15 08/08/25 12:20 Hydrocodone/Apap 10/325 Tab PO 08/13/25 12:14 1.5 tab QDAY KILLIAN Administration Alprazolam 0.5 mg 08/07/25 12:15 08/08/25 09:21 Alprazolam 0.25 Mg Tablet PO 08/12/25 12:14 0.5 mg BID KILLIAN Administration Aspirin 81 mg 08/07/25 09:00 08/08/25 09:22 Aspirin Ec 81 Mg Tabec PO 09/06/25 08:59 81 mg QDAY KILLIAN Administration Atorvastatin Calcium 10 mg 08/07/25 21:00 08/07/25 20:49 Atorvastatin Calcium 10 Mg Tablet PO 09/06/25 20:59 10 mg HS KILLIAN Administration Carvedilol 12.5 mg 08/08/25 11:45 08/08/25 17:03 Carvedilol 12.5 Mg Tablet PO 09/07/25 11:44 12.5 mg BIDWM KILLIAN Administration Heparin Sodium (Porcine) 5,000 unit 08/06/25 22:00 08/08/25 13:31 Heparin Sod Inj 5000 Unit/Ml Vial SC 08/20/25 21:59 5,000 unit Q8HR KILLIAN Administration Levothyroxine Sodium 100 mcg 08/08/25 06:00 08/08/25 05:07 Levothyroxine Sodium 100 Mcg Tablet PO 09/07/25 05:59 100 mcg ACBR KILLIAN Administration Losartan Potassium 50 mg 08/08/25 09:00 08/08/25 09:22 Losartan Potassium 25 Mg Tablet PO 09/07/25 08:59 50 mg QDAY KILLIAN Administration Ondansetron HCl 4 mg 08/06/25 20:21 Ondansetron Inj 2 Mg/Ml Inj 2 Ml IVP 09/05/25 20:20 Q6H PRN NAUSEA OR VOMITING Protocol Sennosides 1 tab 08/07/25 09:00 08/08/25 09:22 Senna/Docusate Sod 1 Tab Tablet PO 09/06/25 08:59 1 tab QDAY KILLIAN Administration Protocol Plan 1 y/o female with PMHx CHF, hypothyroidism, HTN,CAD, renal cell carcinoma, fibromyalgia, dyslipidemia, dementia, chronic low back pain who presented to the ED on 08/06 after a fall. Admitted to obs for elevated CK 2/ fall. #Syncope workup #Rule out cardiac cause Unwitnessed fall, was on the ground for 5 hours, hit head and extremities CT head, XR hip/pelvis negative Given 1L NS in ED DDX: polypharmacy, cardiac etiology Patient denies history of dementia Plan: ?Orthostatic vitals ?Echocardiogram recently done this year and showed relatively normal heart function ?Dr. Crespo consulted to rule out cardiac cause of syncope, see recommendations #History of CHF Last echo done 01/27/2025 and showed EF 56% with LV diastolic dysfunction. Mild to moderate aortic regurgitation. Lexiscan 02/20 was also normal No crackles on lung auscultation, 2+ b/l LE pitting edema BNP WNL Takes carvedilol 12.5 mg twice daily Plan: - Dr. Crespo consulted to rule out cardiac cause of syncope, see recommendations #Bilateral LE pain TTP of b/l calves Plan: - LE Doppler to assess for DVT, negative #Renal cell carcinoma, bilateral dx 2011, recent laparoscopic surgery R kidney Plan: - continue to follow w/ outpatient oncology at [facility] #Hypothyroidism TSH 0.04, free T41.65 ?Resume levothyroxine home dose 100 mcg daily #Hypertension Home med losartan 50 mg twice daily ? Monitor blood pressure #Hyperlipidemia Home med Rosuvastatin 5 mg PO QHS, pending med rec Plan: - Atorvastatin 10 mg PO QHS #History of CAD No current chest pain/pressure Plan: - Aspirin 81 mg PO daily ?Atorvastatin 10 mg daily #Fibromyalgia #Chronic low back pain Patient takes Xanax 2 mg twice daily and [place] 10/325 1.5 tabs daily Plan: -Xanax 0.5 mg twice daily #Rhabdomyolysis, resolved Health maintenance: Dispo: MedSurg Diet: cardiac Bowel Reg: doc/senna daily killian VTE ppx: heparin subQ GI ppx: n/a Pain mgmt: Tylenol PRN Code status: limited - ok CPR, DNI Case discussed with my attending Dr. Hyde, and senior resident, Dr. Joe Garcia MD PGY-1
[2025-08-08] MEDS: ATORVASTATIN CALCIUM 10 MG TABLET PO (20:30)
[2025-08-09] VITALS (10 sets, daily range): BP systolic 130–173; BP diastolic 64–94; PULSE 73–86; RESP 18; TEMP 36.1–36.6; O2SAT 92–97
[2025-08-09] MEDS: ACETAMINOPHEN 325 MG TABLET 650 MG PO (03:59)
[2025-08-09] MEDS: HEPARIN SOD INJ 5000 UNIT/ML VIAL SC ×3 (05:41→21:23)
[2025-08-09] MEDS: LEVOTHYROXINE SODIUM 100 MCG TABLET PO (05:41)
[2025-08-09 05:58] LABS: Basophils # (Auto) 0.0 Thou/mm3 (0.0-0.2); Basophils % (Auto) 0 % (0-2.5); Eosinophils # (Auto) 0.3 Thou/mm3 (0.0-0.5); Eosinophils % (Auto) 4 % (0-10); Hematocrit 33.5 % (36.0-46.0); Hemoglobin 11.2 g/dL (12.0-16.0); Immature Granulocytes Auto 0.02 Thou/mm3 (0.00-0.00); Lymphocytes # (Auto) 1.7 Thou/mm3 (1.0-4.8); Lymphocytes % (Auto) 25 % (10-50); Mean Corpuscular HGB Conc 33.4 g/dl (31.0-37.0); Mean Corpuscular Hemoglobin 29.5 pg (25.0-35.0); Mean Corpuscular Volume 88 fL (80-100); Monocytes # (Auto) 0.5 Thou/mm3 (0.0-0.8); Monocytes % (Auto) 7 % (0-12); Neutrophils # (Auto) 4.2 Thou/mm3 (1.8-7.7); Neutrophils % (Auto) 63 % (37-80); Nucleated Red Blood Cell # 0.00 Thou/mm3 (0.00-0.00); Nucleated Red Blood Cell % 0 /100 WBC (0); Platelet Count 186 Thou/mm3 (140-440); RDW Standard Deviation 41.1 fL (36.4-46.3); Red Blood Count 3.80 Miln/mm3 (4.00-5.20); White Blood Count 6.7 Thou/mm3 (3.6-11.0)
[2025-08-09 06:23] LABS: Anion Gap 12 (7-16); BUN/Creatinine Ratio 9 Ratio (12-20); Blood Urea Nitrogen 9 mg/dL (9-23); Calcium 9.0 mg/dL (8.3-10.6); Carbon Dioxide 27.5 mMol/L (20.0-31.0); Chloride 103 mMol/L (98-107); Creatinine (Component) 1.0 mg/dL (0.6-1.3); Estimated Creatinine Clearance 68.3 mL/min (>60); Glucose 96 mg/dL (74-106); Magnesium 2.0 mg/dL (1.6-2.6); Osmolality,Calculated 281 (275-295); Phosphorous 4.0 mg/dL (2.4-5.1); Potassium 3.5 mMol/L (3.4-5.1); Sodium 142 mMol/L (136-145); eGFR 60 See Note
[2025-08-09] MEDS: LOSARTAN POTASSIUM 25 MG TABLET 50 MG PO (08:50)
[2025-08-09] MEDS: ASPIRIN EC 81 MG TABEC PO (08:51)
[2025-08-09] MEDS: SENNA/DOCUSATE SOD 1 TAB TABLET PO (08:51)
--- NOTE | 2025-08-09 08:53 | PC.SS ---
SS update: [employer] notified Sue from [facility] that patient is requesting her facility and informed her that per UR team patient has now been changed to IP in accordance with 2 MN, notified via [employer]. Mihaela from [facility] notified [employer] that patient may need 3 midnight stay to be able to accept patient, [employer] notified Mihaela that patient status changed to IP today and provided admit date. Mihaela from [facility] will reach out to [employer] once she confirms if they are able to take patient on Sunday.
--- NOTE | 2025-08-09 12:12 | ESPR_ITS ---
<Statement entered by Jovi Hyde MD - 08/09/25 12:44> I have discussed and was present for the essential components of the history, physical examination, diagnosis, and treatment plan with the resident. I agree with the patient's care as documented by the resident and amended herein by me. Jovi Hyde MD FACP. Documentation for date of: 08/09/25 Subjective Subjective Interval history: Seen and examined at bedside. No acute overnight events. Labs and vitals are stable. Patient still complaining of pain, Home medication is hydrocodone, we will resume, however we will decrease the dosage, continue the rest of the home medication. Pending SNF placement, patient was transition to inpatient setting, pending 3 midnight for SNF placement Exam Vital Signs Temp Pulse Resp BP Pulse Ox O2 Del Method 97.3 F 86 18 173/94 H 95 Room Air 08/09/25 08:00 08/09/25 08:50 08/09/25 08:00 08/09/25 08:50 08/09/25 08:00 08/09/25 08:00 Narrative Exam General: No acute distress, conversing well Eye: PERRL, EOMI, normal conjunctiva, no scleral icterus HENT: Normocephalic, atraumatic, normal hearing, moist oral mucosa, hoarse voice Neck: Supple, non-tender, no JVD, no lymphadenopathy Lungs: Clear to auscultation bilaterally, non-labored respirations, symmetric chest rise, no use of accessory muscles Heart: Normal S1 and S2. Normal rate and regular rhythm, no murmurs, rubs gallops. Peripheral pulses intact bilaterally, capillary refill brisk distally. 2+ b/l LE with pain out of proportion Abdomen: Soft, non-tender, non-distended, normal bowel sounds. No guarding or rebound tenderness. Musculoskeletal: Normal range of motion and strength, no tenderness or swelling Skin: Skin is warm, dry, no rashes or lesions. Neurologic: Alert, awake and oriented x3. CN II-XII grossly intact. No focal neuro deficits. No signs of meningeal irritation noted. Psychiatric: Cooperative, appropriate mood and affect Objective Labs 08/09/25 04:34 08/09/25 04:34 Labs: Laboratory Results - last 24 hr 08/09/25 04:34 WBC 6.7 RBC 3.80 L Hgb 11.2 L Hct 33.5 L MCV 88 MCH 29.5 MCHC 33.4 RDW Std Deviation 41.1 Plt Count 186 Neut % (Auto) 63 Lymph % (Auto) 25 [place] % (Auto) 7 Eos % (Auto) 4 Baso % (Auto) 0 Neut # (Auto) 4.2 Lymph # (Auto) 1.7 [place] # (Auto) 0.5 Eos # (Auto) 0.3 Baso # (Auto) 0.0 Immature Gran # (Auto) 0.02 H Absolute Nucleated RBC 0.00 Immature Gran % 0 Nucleated RBC % 0 Sodium 142 Potassium 3.5 Chloride 103 Carbon Dioxide 27.5 Anion Gap 12 BUN 9 Creatinine 1.0 Estim Creat Clear Calc 68.3 eGFR 60 BUN/Creatinine Ratio 9 L Glucose 96 Calculated Osmolality 281 Calcium 9.0 Phosphorus 4.0 Magnesium 2.0 Quality Measures Quality Measures none Advance care planning discussed with:: patient Assessment & Plan Assessment Current Active Medications: Generic Name Dose Route Start Last Admin Trade Name Freq PRN Reason Stop Dose Admin Acetaminophen 650 mg 08/06/25 20:21 08/07/25 18:42 Acetaminophen 325 Mg Tablet PO 09/05/25 20:20 650 mg Q6H PRN Administration Fever >101.5 Acetaminophen 650 mg 08/06/25 20:21 08/09/25 03:59 Acetaminophen 325 Mg Tablet PO 09/05/25 20:20 650 mg Q6H PRN Administration PAIN SCALE 1-3 (mild Hydrocodone Bitart/Acetaminophen 1 tab 08/09/25 11:12 Hydrocodone/Apap 5/325 Tablet PO 08/14/25 11:11 Q8HR PRN PAIN SCALE 4-10(Mod-Sev Alprazolam 0.5 mg 08/07/25 12:15 08/09/25 08:50 Alprazolam 0.25 Mg Tablet PO 08/12/25 12:14 0.5 mg BID KILLIAN Administration Aspirin 81 mg 08/07/25 09:00 08/09/25 08:51 Aspirin Ec 81 Mg Tabec PO 09/06/25 08:59 81 mg QDAY KILLIAN Administration Atorvastatin Calcium 10 mg 08/07/25 21:00 08/08/25 20:30 Atorvastatin Calcium 10 Mg Tablet PO 09/06/25 20:59 10 mg HS KILLIAN Administration Carvedilol 25 mg 08/09/25 08:00 08/09/25 07:39 Carvedilol 12.5 Mg Tablet PO 09/08/25 07:59 25 mg BIDWM KILLIAN Administration Heparin Sodium (Porcine) 5,000 unit 08/06/25 22:00 08/09/25 05:41 Heparin Sod Inj 5000 Unit/Ml Vial SC 08/20/25 21:59 5,000 unit Q8HR KILLIAN Administration Levothyroxine Sodium 100 mcg 08/08/25 06:00 08/09/25 05:41 Levothyroxine Sodium 100 Mcg Tablet PO 09/07/25 05:59 100 mcg ACBR KILLIAN Administration Losartan Potassium 50 mg 08/08/25 09:00 08/09/25 08:50 Losartan Potassium 25 Mg Tablet PO 09/07/25 08:59 50 mg QDAY KILLIAN Administration Ondansetron HCl 4 mg 08/06/25 20:21 Ondansetron Inj 2 Mg/Ml Inj 2 Ml IVP 09/05/25 20:20 Q6H PRN NAUSEA OR VOMITING Protocol Sennosides 1 tab 08/07/25 09:00 08/09/25 08:51 Senna/Docusate Sod 1 Tab Tablet PO 09/06/25 08:59 1 tab QDAY KILLIAN Administration Protocol Plan 1 y/o female with PMHx CHF, hypothyroidism, HTN,CAD, renal cell carcinoma, fibromyalgia, dyslipidemia, dementia, chronic low back pain who presented to the ED on 08/06 after a fall. Admitted to obs for elevated CK 2/2 fall. #Syncope workup # Orthostatic hypotension DDX: polypharmacy, cardiac etiology Unwitnessed fall, was on the ground for 5 hours, hit head and extremities CT head, XR hip/pelvis negative Given 1L NS in ED Patient denies history of dementia Plan: ?Echocardiogram recently done this year and showed relatively normal heart function ?Dr. Crespo consulted to rule out cardiac cause of syncope, see recommendations #History of CHF Last echo done 01/27/2025 and showed EF 56% with LV diastolic dysfunction. Mild to moderate aortic regurgitation. Lexiscan 02/20 was also normal No crackles on lung auscultation, 2+ b/l LE pitting edema BNP WNL Takes carvedilol 25 mg twice daily Plan: - Dr. Crespo consulted to rule out cardiac cause of syncope, see recommendations #Bilateral LE pain TTP of b/l calves Plan: - LE Doppler to assess for DVT, negative #Renal cell carcinoma, bilateral dx 2011, recent laparoscopic surgery R kidney Plan: - continue to follow w/ outpatient oncology at [facility] #Hypothyroidism TSH 0.04, free T41.65 ?Resume levothyroxine home dose 100 mcg daily #Hypertension -Continue losartan 50 daily -Continue Coreg 25 twice daily #Hyperlipidemia Home med Rosuvastatin 5 mg PO QHS, pending med rec Plan: - Atorvastatin 10 mg PO QHS #History of CAD No current chest pain/pressure Plan: - Aspirin 81 mg PO daily ?Atorvastatin 10 mg daily #Fibromyalgia #Chronic low back pain Patient takes Xanax 2 mg twice daily and [place] 10/325 1.5 tabs daily Plan: -Xanax 0.5 mg twice daily #Rhabdomyolysis, resolved Health maintenance: Dispo: MedSurg Diet: cardiac Bowel Reg: doc/senna daily killian VTE ppx: heparin subQ GI ppx: n/a Pain mgmt: Tylenol PRN Code status: limited - ok CPR, DNI Patient care was discussed with attending physician Dr. Mary Ellen Diaz MD PGY-3
--- NOTE | 2025-08-09 19:26 | ESPR_ITS ---
RE: BALBINA MARTIN : 1955 DATE OF SERVICE: 08/09/2025 SUBJECTIVE: Balbina Martin is doing fairly well, has no shortness of breath, but still has general weakness, fatigue. Patient is waiting for a group home home placement. Does not complain of any chest pain or shortness of breath. No anginal symptoms. OBJECTIVE: Vital Signs: Blood pressure is still slightly elevated today, but this evening is 145/71, pulse is respiration 18, temperature normal. Neck: Supple. No JVD. Lungs: Decreased breath sounds. No rales or rhonchi. Heart: S1 and S2. Regular. No gallops or murmur. Abdomen: Thin and soft. Extremities: No edema. IMPRESSION: 1. Coronary artery disease status post stent placement, stable. 2. [id number] hypertension. RECOMMENDATIONS: 1. Continue carvedilol and losartan for hypertension. 2. Patient will benefit from rehabilitation as she has been falling frequently. DT: 18:54:13 TT: 19:25:00 Ref: [id number] - TID: [id number]
--- NOTE | 2025-08-09 20:11 | PC.NURSE ---
MD Bravo made aware that pt has a foul smell on urine, MD ordered to do UA and c/s if indicated, will send urinalysis to the lab.
[2025-08-09 20:14] LABS: Collection Type, Urine Catheter
[2025-08-09 20:30] LABS: Bacteria,Urine 2+; Bilirubin,Urine Negative (Negative); Blood,Urine 2+ (Negative); Clarity,Urine Turbid (Clear/Hazy); Color,Urine Lt-Yellow (Lt Yel-Yel); Glucose, Urine Negative (Negative); Ketones,Urine Negative (Negative); Leukocyte Esterase,Urine Positive (Negative); Nitrite,Urine Positive (Negative); PH,Urine 7.5 (5.0-7.0); Protein,Urine Negative (Neg - Trace); RBC,Urine 4 /hpf (0-3); Specific Gravity,Urine 1.002 (1.001-1.035); Squamous Epithelial Cell,Urine 4 /hpf (0-5); Urobilinogen,Urine Negative mg/dL (0.0-1.0); WBC,Urine 82 /hpf (0-5)
[2025-08-09 20:31] LABS: Culture Indicated,Urine Yes
[2025-08-09] MEDS: cefTRIAXone/D5w 1gm IV premix 1 GM/50 ML BAG IV (21:22)
[2025-08-09] MEDS: ATORVASTATIN CALCIUM 10 MG TABLET PO (21:23)
[2025-08-09] MEDS: HYDROcodone/APAP 5/325 TABLET 1 TAB PO (21:24)
[2025-08-10] VITALS (10 sets, daily range): BP systolic 152–161; BP diastolic 69–106; PULSE 66–87; RESP 18–98; TEMP 36–36.6; O2SAT 94–97; BMI 13.0
[2025-08-10] MEDS: HEPARIN SOD INJ 5000 UNIT/ML VIAL SC ×2 (05:05→13:24)
[2025-08-10] MEDS: LEVOTHYROXINE SODIUM 100 MCG TABLET PO (05:05)
[2025-08-10 08:37] LABS: Basophils # (Auto) 0.0 Thou/mm3 (0.0-0.2); Basophils % (Auto) 0 % (0-2.5); Eosinophils # (Auto) 0.4 Thou/mm3 (0.0-0.5); Eosinophils % (Auto) 5 % (0-10); Hematocrit 37.2 % (36.0-46.0); Hemoglobin 12.6 g/dL (12.0-16.0); Immature Granulocytes Auto 0.06 Thou/mm3 (0.00-0.00); Lymphocytes # (Auto) 2.0 Thou/mm3 (1.0-4.8); Lymphocytes % (Auto) 27 % (10-50); Mean Corpuscular HGB Conc 33.9 g/dl (31.0-37.0); Mean Corpuscular Hemoglobin 29.6 pg (25.0-35.0); Mean Corpuscular Volume 88 fL (80-100); Monocytes # (Auto) 0.5 Thou/mm3 (0.0-0.8); Monocytes % (Auto) 7 % (0-12); Neutrophils # (Auto) 4.5 Thou/mm3 (1.8-7.7); Neutrophils % (Auto) 60 % (37-80); Nucleated Red Blood Cell # 0.00 Thou/mm3 (0.00-0.00); Nucleated Red Blood Cell % 0 /100 WBC (0); Platelet Count 247 Thou/mm3 (140-440); RDW Standard Deviation 40.7 fL (36.4-46.3); Red Blood Count 4.25 Miln/mm3 (4.00-5.20); White Blood Count 7.5 Thou/mm3 (3.6-11.0)
[2025-08-10 08:56] LABS: Alanine Aminotransferase 17 U/L (10-49); Albumin, Serum 4.2 gm/dL (3.4-4.8); Albumin/Globulin Ratio 1.9 (1.2-2.2); Alkaline Phosphatase 59 U/L (46-116); Anion Gap 11 (7-16); Aspartate Amino Transferase 20 U/L (0-34); BUN/Creatinine Ratio 8 Ratio (12-20); Bilirubin,Total 0.5 mg/dL (0.3-1.2); Blood Urea Nitrogen 9 mg/dL (9-23); Calcium 9.7 mg/dL (8.3-10.6); Calcium (Corrected) 9.7 mg/dL (8.5-10.1); Carbon Dioxide 25.9 mMol/L (20.0-31.0); Chloride 102 mMol/L (98-107); Creatinine (Component) 1.1 mg/dL (0.6-1.3); Estimated Creatinine Clearance 62.1 mL/min (>60); Globulin 2.2 gm/dL (2.3-3.5); Glucose 190 mg/dL (74-106); Osmolality,Calculated 281 (275-295); Potassium 3.8 mMol/L (3.4-5.1); Sodium 139 mMol/L (136-145); Total Protein 6.4 gm/dL (5.7-8.2); eGFR 53 See Note
[2025-08-10] MEDS: LOSARTAN POTASSIUM 25 MG TABLET 50 MG PO (09:05)
[2025-08-10] MEDS: SENNA/DOCUSATE SOD 1 TAB TABLET PO (09:05)
[2025-08-10] MEDS: ASPIRIN EC 81 MG TABEC PO (09:08)
[2025-08-10] MEDS: HYDROcodone/APAP 5/325 TABLET 1 TAB PO ×2 (09:55→22:48)
[2025-08-10] MEDS: BALSAM PERU/CASTOR OIL (Venelex) 60 GM TUBE TOP ×2 (13:24→20:58)
--- NOTE | 2025-08-10 13:29 | PD.RESPRO ---
Documentation for date of: 08/10/25 Subjective Subjective Interval history: Patient seen at bedside. Had foul smelling urine, UA was positive for UTI, sent for UCx. Started on abx. No burning sensation. Nolen removed. Labs and vitals are stable. Pending SNF placement, patient was transition to inpatient setting, pending 2 midnight for SNF placement. Exam Vital Signs Temp Pulse Resp BP Pulse Ox O2 Del Method 97.4 F 80 19 153/106 H 95 Room Air 08/10/25 12:00 08/10/25 12:00 08/10/25 12:00 08/10/25 12:00 08/10/25 12:00 08/10/25 12:00 Narrative Exam General: No acute distress, conversing well Eye: PERRL, EOMI, normal conjunctiva, no scleral icterus HENT: Normocephalic, atraumatic, normal hearing, moist oral mucosa, hoarse voice Neck: Supple, non-tender, no JVD, no lymphadenopathy Lungs: Clear to auscultation bilaterally, non-labored respirations, symmetric chest rise, no use of accessory muscles Heart: Normal S1 and S2. Normal rate and regular rhythm, no murmurs, rubs gallops. Peripheral pulses intact bilaterally, capillary refill brisk distally. 2+ b/l LE with pain out of proportion Abdomen: Soft, non-tender, non-distended, normal bowel sounds. No guarding or rebound tenderness. Musculoskeletal: Normal range of motion and strength, no tenderness or swelling Skin: Skin is warm, dry, no rashes or lesions. Neurologic: Alert, awake and oriented x3. CN II-XII grossly intact. No focal neuro deficits. No signs of meningeal irritation noted. Psychiatric: Cooperative, appropriate mood and affect Objective Labs 08/11/25 05:11 08/11/25 05:11 Labs: Laboratory Results - last 24 hr 08/09/25 08/10/25 20:04 08:23 WBC 7.5 RBC 4.25 Hgb 12.6 Hct 37.2 MCV 88 MCH 29.6 MCHC 33.9 RDW Std Deviation 40.7 Plt Count 247 D Neut % (Auto) 60 Lymph % (Auto) 27 [place] % (Auto) 7 Eos % (Auto) 5 Baso % (Auto) 0 Neut # (Auto) 4.5 Lymph # (Auto) 2.0 [place] # (Auto) 0.5 Eos # (Auto) 0.4 Baso # (Auto) 0.0 Immature Gran # (Auto) 0.06 H Absolute Nucleated RBC 0.00 Immature Gran % 1 H Nucleated RBC % 0 Sodium 139 Potassium 3.8 Chloride 102 Carbon Dioxide 25.9 Anion Gap 11 BUN 9 Creatinine 1.1 Estim Creat Clear Calc 62.1 eGFR 53 L BUN/Creatinine Ratio 8 L Glucose 190 H D Calculated Osmolality 281 Calcium 9.7 Corrected Calcium 9.7 Total Bilirubin 0.5 AST 20 ALT 17 Alkaline Phosphatase 59 Total Protein 6.4 Albumin 4.2 Globulin 2.2 L Albumin/Globulin Ratio 1.9 Ur Collection Type Catheter Urine Color Lt-Yellow Urine Clarity Turbid A Urine pH 7.5 H Ur Specific [place] 1.002 Urine Protein Negative Urine Glucose (UA) Negative Urine Ketones Negative Urine Blood 2+ A Urine Nitrite Positive Urine Bilirubin Negative Urine Urobilinogen (Auto) Negative Ur Leukocyte Esterase Positive Urine RBC 4 H Urine WBC 82 H Ur Squamous Epith Cells 4 Urine Bacteria 2+ A Ur Culture Indicated? Yes Quality Measures Quality Measures none Advance care planning discussed with:: patient Assessment & Plan Assessment Current Active Medications: Generic Name Dose Route Start Last Admin Trade Name Freq PRN Reason Stop Dose Admin Acetaminophen 650 mg 08/06/25 20:21 08/07/25 18:42 Acetaminophen 325 Mg Tablet PO 09/05/25 20:20 650 mg Q6H PRN Administration Fever >101.5 Acetaminophen 650 mg 08/06/25 20:21 08/09/25 03:59 Acetaminophen 325 Mg Tablet PO 09/05/25 20:20 650 mg Q6H PRN Administration PAIN SCALE 1-3 (mild Hydrocodone Bitart/Acetaminophen 1 tab 08/09/25 11:12 08/10/25 09:55 Hydrocodone/Apap 5/325 Tablet PO 08/14/25 11:11 1 tab Q8HR PRN Administration PAIN SCALE 4-10(Mod-Sev Alprazolam 0.5 mg 08/07/25 12:15 08/10/25 09:07 Alprazolam 0.25 Mg Tablet PO 08/12/25 12:14 0.5 mg BID KILLIAN Administration Aspirin 81 mg 08/07/25 09:00 08/10/25 09:08 Aspirin Ec 81 Mg Tabec PO 09/06/25 08:59 81 mg QDAY KILLIAN Administration Atorvastatin Calcium 10 mg 08/07/25 21:00 08/09/25 21:23 Atorvastatin Calcium 10 Mg Tablet PO 09/06/25 20:59 10 mg HS KILLIAN Administration Balsam Alesia/[place] Oil 0 gm 08/10/25 12:00 08/10/25 13:24 Balsam Alesia/[place] Oil (Venelex) 60 Gm Tube TOP 09/09/25 11:59 1 applicatio BID KILLIAN Administration Carvedilol 25 mg 08/09/25 08:00 08/10/25 09:08 Carvedilol 12.5 Mg Tablet PO 09/08/25 07:59 25 mg BIDWM KILLIAN Administration Heparin Sodium (Porcine) 5,000 unit 08/06/25 22:00 08/10/25 13:24 Heparin Sod Inj 5000 Unit/Ml Vial SC 08/20/25 21:59 5,000 unit Q8HR KILLIAN Administration Ceftriaxone Sodium/Dextrose 1 gm in 50 mls @ 100 mls/hr 08/09/25 20:45 08/09/25 21:22 Rocephin/D5w 1gm Iv Premix IV 08/16/25 20:44 100 mls/hr DAILY@2100 KILLIAN Administration Levothyroxine Sodium 100 mcg 08/08/25 06:00 08/10/25 05:05 Levothyroxine Sodium 100 Mcg Tablet PO 09/07/25 05:59 100 mcg ACBR KILLIAN Administration Losartan Potassium 50 mg 08/08/25 09:00 08/10/25 09:05 Losartan Potassium 25 Mg Tablet PO 09/07/25 08:59 50 mg QDAY KILLIAN Administration Ondansetron HCl 4 mg 08/06/25 20:21 Ondansetron Inj 2 Mg/Ml Inj 2 Ml IVP 09/05/25 20:20 Q6H PRN NAUSEA OR VOMITING Protocol Sennosides 1 tab 08/07/25 09:00 08/10/25 09:05 Senna/Docusate Sod 1 Tab Tablet PO 09/06/25 08:59 1 tab QDAY KILLIAN Administration Protocol Plan 1 y/o female with PMHx CHF, hypothyroidism, HTN,CAD, renal cell carcinoma, fibromyalgia, dyslipidemia, dementia, chronic low back pain who presented to the ED on 08/06 after a fall. Admitted to obs for elevated CK 2/ fall. #UTI UA 08/09 positive for leuk and nitrites UCx pending Plan - Nolen removal - CTX 1g IV qday #Syncope workup # Orthostatic hypotension DDX: polypharmacy, cardiac etiology Unwitnessed fall, was on the ground for 5 hours, hit head and extremities CT head, XR hip/pelvis negative Given 1L NS in ED Patient denies history of dementia Plan: ?Echocardiogram recently done this year and showed relatively normal heart function ?Dr. Crespo consulted to rule out cardiac cause of syncope, see recommendations #History of CHF Last echo done 01/27/2025 and showed EF 56% with LV diastolic dysfunction. Mild to moderate aortic regurgitation. Lexiscan 02/20 was also normal No crackles on lung auscultation, 2+ b/l LE pitting edema BNP WNL Takes carvedilol 25 mg twice daily Plan: - Dr. Crespo consulted to rule out cardiac cause of syncope, see recommendations #Bilateral LE pain TTP of b/l calves Plan: - LE Doppler to assess for DVT, negative #Renal cell carcinoma, bilateral dx 2011, recent laparoscopic surgery R kidney Plan: - continue to follow w/ outpatient oncology at [facility] #Hypothyroidism TSH 0.04, free T41.65 ?Resume levothyroxine home dose 100 mcg daily #Hypertension -Continue losartan 50 daily -Continue Coreg 25 twice daily #Hyperlipidemia Home med Rosuvastatin 5 mg PO QHS, pending med rec Plan: - Atorvastatin 10 mg PO QHS #History of CAD No current chest pain/pressure Plan: - Aspirin 81 mg PO daily ?Atorvastatin 10 mg daily #Fibromyalgia #Chronic low back pain Patient takes Xanax 2 mg twice daily and [place] 10/325 1.5 tabs daily Plan: -Xanax 0.5 mg twice daily #Rhabdomyolysis, resolved Health maintenance: Dispo: MedSurg Diet: cardiac Bowel Reg: doc/senna daily killian VTE ppx: heparin subQ GI ppx: n/a Pain mgmt: Tylenol PRN Code status: limited - ok CPR, DNR Case discussed with my attending Dr. Ziegler, and senior resident, Dr. Elise Garcia MD PGY-1 Attending Provider Attestation/Addendum I reviewed labs, imaging, EKG, home medications and prior available records. Face to face evaluation was performed by me. I have personally examined the patient and discussed assessment and plan with the IM team. I reviewed the resident note and agree with the plan with exceptions as below. Ground-level fall Dementia Rhabdomyolysis, resolved Orthostatic CAD PT recommended SNF. She needs 3 inpatient night stays IV hydration Continue aspirin and statin
--- NOTE | 2025-08-10 15:09 | ESPR_ITS ---
<Statement entered by Liberty Crespo MD - 08/12/25 12:11> I personally evaluated patient examined with resident physician PGY 2 Dr. Sai COSME patient is doing quite well cardiac aguilar no shortness of breath chest pain can be discharged to [facility] facility whenever the bed is available we will follow-up as an outpatient as scheduled Documentation for date of: 08/10/25 Subjective Subjective Interval history: No acute overnight events. Seen and examined at bedside and patient does not have any complaints, including shortness of breath, chest discomfort, or palpitations. She will need three midnight stays for her placement to SNF. Vital signs show BP 153/106 but otherwise stable and labs unremarkable. Exam Vital Signs Temp Pulse Resp BP Pulse Ox O2 Del Method 97.4 F 80 19 153/106 H 95 Room Air 08/10/25 12:00 08/10/25 12:00 08/10/25 12:00 08/10/25 12:00 08/10/25 12:00 08/10/25 12:00 Narrative Exam General: AOx3, no acute distress, able to speak full sentences HEENT: NC/AT, mucous membranes moist, bilateral sclera anicteric, significant hair on pillow Cardiovascular: regular rate and rhythm, S1/S2 present, no murmurs appreciated Pulmonary: clear to auscultation bilaterally, no rales/rhonchi/wheezes Abdominal: soft, non-tender, non-distended, no rebound/guarding, normal bowel sounds present Musculoskeletal: normal ROM, no peripheral edema Skin: warm and dry, intact, no rashes Neuro: CN II-XII intact, no focal deficits Objective Labs 08/10/25 08:23 08/10/25 08:23 Labs: Laboratory Results - last 24 hr 08/09/25 08/10/25 20:04 08:23 WBC 7.5 RBC 4.25 Hgb 12.6 Hct 37.2 MCV 88 MCH 29.6 MCHC 33.9 RDW Std Deviation 40.7 Plt Count 247 D Neut % (Auto) 60 Lymph % (Auto) 27 [place] % (Auto) 7 Eos % (Auto) 5 Baso % (Auto) 0 Neut # (Auto) 4.5 Lymph # (Auto) 2.0 [place] # (Auto) 0.5 Eos # (Auto) 0.4 Baso # (Auto) 0.0 Immature Gran # (Auto) 0.06 H Absolute Nucleated RBC 0.00 Immature Gran % 1 H Nucleated RBC % 0 Sodium 139 Potassium 3.8 Chloride 102 Carbon Dioxide 25.9 Anion Gap 11 BUN 9 Creatinine 1.1 Estim Creat Clear Calc 62.1 eGFR 53 L BUN/Creatinine Ratio 8 L Glucose 190 H D Calculated Osmolality 281 Calcium 9.7 Corrected Calcium 9.7 Total Bilirubin 0.5 AST 20 ALT 17 Alkaline Phosphatase 59 Total Protein 6.4 Albumin 4.2 Globulin 2.2 L Albumin/Globulin Ratio 1.9 Ur Collection Type Catheter Urine Color Lt-Yellow Urine Clarity Turbid A Urine pH 7.5 H Ur Specific [place] 1.002 Urine Protein Negative Urine Glucose (UA) Negative Urine Ketones Negative Urine Blood 2+ A Urine Nitrite Positive Urine Bilirubin Negative Urine Urobilinogen (Auto) Negative Ur Leukocyte Esterase Positive Urine RBC 4 H Urine WBC 82 H Ur Squamous Epith Cells 4 Urine Bacteria 2+ A Ur Culture Indicated? Yes Quality Measures Quality Measures none Advance care planning discussed with:: patient Assessment & Plan Assessment Current Active Medications: Generic Name Dose Route Start Last Admin Trade Name Freq PRN Reason Stop Dose Admin Acetaminophen 650 mg 08/06/25 20:21 08/07/25 18:42 Acetaminophen 325 Mg Tablet PO 09/05/25 20:20 650 mg Q6H PRN Administration Fever >101.5 Acetaminophen 650 mg 08/06/25 20:21 08/09/25 03:59 Acetaminophen 325 Mg Tablet PO 09/05/25 20:20 650 mg Q6H PRN Administration PAIN SCALE 1-3 (mild Hydrocodone Bitart/Acetaminophen 1 tab 08/09/25 11:12 08/10/25 09:55 Hydrocodone/Apap 5/325 Tablet PO 08/14/25 11:11 1 tab Q8HR PRN Administration PAIN SCALE 4-10(Mod-Sev Alprazolam 0.5 mg 08/07/25 12:15 08/10/25 09:07 Alprazolam 0.25 Mg Tablet PO 08/12/25 12:14 0.5 mg BID RONEY Administration Aspirin 81 mg 08/07/25 09:00 08/10/25 09:08 Aspirin Ec 81 Mg Tabec PO 09/06/25 08:59 81 mg QDAY RONEY Administration Atorvastatin Calcium 10 mg 08/07/25 21:00 08/09/25 21:23 Atorvastatin Calcium 10 Mg Tablet PO 09/06/25 20:59 10 mg HS RONEY Administration Balsam Alesia/[place] Oil 0 gm 08/10/25 12:00 08/10/25 13:24 Balsam Alesia/[place] Oil (Venelex) 60 Gm Tube TOP 09/09/25 11:59 1 applicatio BID RONEY Administration Carvedilol 25 mg 08/09/25 08:00 08/10/25 09:08 Carvedilol 12.5 Mg Tablet PO 09/08/25 07:59 25 mg BIDWM RONEY Administration Heparin Sodium (Porcine) 5,000 unit 08/06/25 22:00 08/10/25 13:24 Heparin Sod Inj 5000 Unit/Ml Vial SC 08/20/25 21:59 5,000 unit Q8HR RONEY Administration Ceftriaxone Sodium/Dextrose 1 gm in 50 mls @ 100 mls/hr 08/09/25 20:45 08/09/25 21:22 Rocephin/D5w 1gm Iv Premix IV 08/16/25 20:44 100 mls/hr DAILY@2100 RONEY Administration Levothyroxine Sodium 100 mcg 08/08/25 06:00 08/10/25 05:05 Levothyroxine Sodium 100 Mcg Tablet PO 09/07/25 05:59 100 mcg ACBR RONEY Administration Losartan Potassium 50 mg 08/08/25 09:00 08/10/25 09:05 Losartan Potassium 25 Mg Tablet PO 09/07/25 08:59 50 mg QDAY RONEY Administration Ondansetron HCl 4 mg 08/06/25 20:21 Ondansetron Inj 2 Mg/Ml Inj 2 Ml IVP 09/05/25 20:20 Q6H PRN NAUSEA OR VOMITING Protocol Sennosides 1 tab 08/07/25 09:00 08/10/25 09:05 Senna/Docusate Sod 1 Tab Tablet PO 09/06/25 08:59 1 tab QDAY RONEY Administration Protocol Mary Ellen Danay Meneses is a 70-year-old female with a history of CAD s/p multiple stents in 2012 and 2017 for RCA/OM branch of LCx/mid-LAD, HFpEF (EF 56% 01/2025), hypertension, hyperlipidemia, hypothyroidism s/p thyroidectomy 1994, renal cell carcinoma s/p nephrectomy and followed at [facility] [place], fibromyalgia and chronic low back pain who is admitted for syncope, rhabdomyolysis, and cardiology consulted given history of CAD in setting of syncope. #Syncope #Ground-level fall #History of CAD s/p stents in 2012 and 2018 Presents after ground-level fall that patient cannot recall and was on the floor for approximately 5 hours prior to EMS contact. Denies any chest pain, shortness of breath, palpitations, weakness, or numbness. Unlikely to be cardiac-related given history, negative troponins, and normal EKG findings. CT head, hip/pelvic XR, and CXR all unremarkable. She had complete, non-invasive cardiac work-up as outpatient on 01/2025 that included an echo that showed EF of 56% with diastolic dysfunction and lexiscan that was unremarkable. ? Continue home aspirin 81 mg daily ? Continue Home rosuvastatin 5 mg or equivalent at bedtime #HFpEF (EF 56% on 01/2025) Known to have chronic lower extremity edema and is on torsemide 20 mg outpatient but is not fluid overload at this time given lack of crackles, edema, and JVD. ? Continue to follow-up outpatient ? Can give gentle IVF per discretion of primary team for rhabdomyolysis, but may not be needed given improvement in CK #Hypertension Per clinic note on 02/2025 patient takes carvedilol 25 mg BID, losartan 50 mg BID, and torsemide 20 mg daily at home ? Continue home meds per primary team discretion #Rhabdomyolysis #Renal cell carcinoma #Hypothyroidism #Hypertension #Hyperlipidemia #Fibromyalgia #Chronic low back pain #Anxiety ? Continue management per primary team ----- Plan discussed with attending physician Dr. Zak Cosme MD PGY-2 Internal Medicine
--- NOTE | 2025-08-10 15:46 | PC.SS ---
Addendum entered by Debbie Leon 08/10/25 15:48: Pt is on IV antibiotic. Original Note: SS has met with pt to confirm d/c is still to [facility]. Patient's choice is [facility]. SS spoke to Mihaela from [facility] who states they can accept pt on Sunday.
[2025-08-10] MEDS: ACETAMINOPHEN 325 MG TABLET 650 MG PO (20:16)
[2025-08-10] MEDS: ATORVASTATIN CALCIUM 10 MG TABLET PO (20:16)
[2025-08-10] MEDS: cefTRIAXone/D5w 1gm IV premix 1 GM/50 ML BAG IV (20:17)
[2025-08-11] VITALS (8 sets, daily range): BP systolic 152–176; BP diastolic 68–89; PULSE 75–99; RESP 18–97; TEMP 36.2–36.4; O2SAT 94–97; BMI 15.0; BMI 30.7
[2025-08-11] MEDS: ACETAMINOPHEN 325 MG TABLET 650 MG PO (02:42)
[2025-08-11] MEDS: LEVOTHYROXINE SODIUM 100 MCG TABLET PO (05:25)
[2025-08-11] MEDS: HEPARIN SOD INJ 5000 UNIT/ML VIAL SC ×2 (05:26→14:23)
[2025-08-11 05:30] LABS: Basophils # (Auto) 0.0 Thou/mm3 (0.0-0.2); Basophils % (Auto) 1 % (0-2.5); Eosinophils # (Auto) 0.3 Thou/mm3 (0.0-0.5); Eosinophils % (Auto) 4 % (0-10); Hematocrit 36.9 % (36.0-46.0); Hemoglobin 12.5 g/dL (12.0-16.0); Immature Granulocytes Auto 0.07 Thou/mm3 (0.00-0.00); Lymphocytes # (Auto) 2.5 Thou/mm3 (1.0-4.8); Lymphocytes % (Auto) 34 % (10-50); Mean Corpuscular HGB Conc 33.9 g/dl (31.0-37.0); Mean Corpuscular Hemoglobin 29.8 pg (25.0-35.0); Mean Corpuscular Volume 88 fL (80-100); Monocytes # (Auto) 0.7 Thou/mm3 (0.0-0.8); Monocytes % (Auto) 10 % (0-12); Neutrophils # (Auto) 3.8 Thou/mm3 (1.8-7.7); Neutrophils % (Auto) 51 % (37-80); Nucleated Red Blood Cell # 0.00 Thou/mm3 (0.00-0.00); Nucleated Red Blood Cell % 0 /100 WBC (0); Platelet Count 242 Thou/mm3 (140-440); RDW Standard Deviation 40.4 fL (36.4-46.3); Red Blood Count 4.20 Miln/mm3 (4.00-5.20); White Blood Count 7.5 Thou/mm3 (3.6-11.0)
[2025-08-11 06:07] LABS: Alanine Aminotransferase 15 U/L (10-49); Albumin, Serum 4.3 gm/dL (3.4-4.8); Albumin/Globulin Ratio 1.9 (1.2-2.2); Alkaline Phosphatase 58 U/L (46-116); Anion Gap 12 (7-16); Aspartate Amino Transferase 19 U/L (0-34); BUN/Creatinine Ratio 7 Ratio (12-20); Bilirubin,Total 0.5 mg/dL (0.3-1.2); Blood Urea Nitrogen 8 mg/dL (9-23); Calcium 9.6 mg/dL (8.3-10.6); Calcium (Corrected) 9.6 mg/dL (8.5-10.1); Carbon Dioxide 27.1 mMol/L (20.0-31.0); Chloride 103 mMol/L (98-107); Creatinine (Component) 1.1 mg/dL (0.6-1.3); Estimated Creatinine Clearance 62.1 mL/min (>60); Globulin 2.3 gm/dL (2.3-3.5); Glucose 106 mg/dL (74-106); Osmolality,Calculated 281 (275-295); Potassium 3.8 mMol/L (3.4-5.1); Sodium 142 mMol/L (136-145); Total Protein 6.6 gm/dL (5.7-8.2); eGFR 53 See Note
[2025-08-11] MEDS: HYDROcodone/APAP 5/325 TABLET 1 TAB PO (07:24)
--- NOTE | 2025-08-11 08:00 | PD.RESPRO ---
Documentation for date of: 08/11/25 Subjective Subjective Interval history: No acute overnight events. Pending 3 midnight stays to be able to be discharged to SNF. Per 7th grade social studies teacher note, patient can be accepted tomorrow. Otherwise, vital signs show elevated blood pressure at 171/89 but other vital signs stable. CBC unremarkable and chem panel largely unremarkable as well. Exam Vital Signs Temp Pulse Resp BP Pulse Ox O2 Del Method 97.1 F 98 18 171/89 H 97 Room Air 08/11/25 04:00 08/11/25 07:24 08/11/25 07:13 08/11/25 07:24 08/11/25 04:00 08/11/25 04:00 Narrative Exam General: AOx3, no acute distress, able to speak full sentences HEENT: NC/AT, mucous membranes moist, bilateral sclera anicteric, significant hair on pillow Cardiovascular: regular rate and rhythm, S1/S2 present, no murmurs appreciated Pulmonary: clear to auscultation bilaterally, no rales/rhonchi/wheezes Abdominal: soft, non-tender, non-distended, no rebound/guarding, normal bowel sounds present Musculoskeletal: normal ROM, no peripheral edema Skin: warm and dry, intact, no rashes Neuro: CN II-XII intact, no focal deficits Objective Labs 08/11/25 05:11 08/11/25 05:11 Labs: Laboratory Results - last 24 hr 08/10/25 08/11/25 08:23 05:11 WBC 7.5 7.5 RBC 4.25 4.20 Hgb 12.6 12.5 Hct 37.2 36.9 MCV 88 88 MCH 29.6 29.8 MCHC 33.9 33.9 RDW Std Deviation 40.7 40.4 Plt Count 247 D 242 Neut % (Auto) 60 51 Lymph % (Auto) 27 34 [place] % (Auto) 7 10 Eos % (Auto) 5 4 Baso % (Auto) 0 1 Neut # (Auto) 4.5 3.8 Lymph # (Auto) 2.0 2.5 [place] # (Auto) 0.5 0.7 Eos # (Auto) 0.4 0.3 Baso # (Auto) 0.0 0.0 Immature Gran # (Auto) 0.06 H 0.07 H Absolute Nucleated RBC 0.00 0.00 Immature Gran % 1 H 1 H Nucleated RBC % 0 0 Sodium 139 142 Potassium 3.8 3.8 Chloride 102 103 Carbon Dioxide 25.9 27.1 Anion Gap 11 12 BUN 9 8 L Creatinine 1.1 1.1 Estim Creat Clear Calc 62.1 62.1 eGFR 53 L 53 L BUN/Creatinine Ratio 8 L 7 L Glucose 190 H D 106 D Calculated Osmolality 281 281 Calcium 9.7 9.6 Corrected Calcium 9.7 9.6 Total Bilirubin 0.5 0.5 AST 20 19 ALT 17 15 Alkaline Phosphatase 59 58 Total Protein 6.4 6.6 Albumin 4.2 4.3 Globulin 2.2 L 2.3 Albumin/Globulin Ratio 1.9 1.9 Quality Measures Quality Measures none Advance care planning discussed with:: patient Assessment & Plan Assessment Current Active Medications: Generic Name Dose Route Start Last Admin Trade Name Freq PRN Reason Stop Dose Admin Acetaminophen 650 mg 08/06/25 20:21 08/07/25 18:42 Acetaminophen 325 Mg Tablet PO 09/05/25 20:20 650 mg Q6H PRN Administration Fever >101.5 Acetaminophen 650 mg 08/06/25 20:21 08/11/25 02:42 Acetaminophen 325 Mg Tablet PO 09/05/25 20:20 650 mg Q6H PRN Administration PAIN SCALE 1-3 (mild Hydrocodone Bitart/Acetaminophen 1 tab 08/09/25 11:12 08/11/25 07:24 Hydrocodone/Apap 5/325 Tablet PO 08/14/25 11:11 1 tab Q8HR PRN Administration PAIN SCALE 4-10(Mod-Sev Alprazolam 0.5 mg 08/07/25 12:15 08/10/25 20:16 Alprazolam 0.25 Mg Tablet PO 08/12/25 12:14 0.5 mg BID RONEY Administration Aspirin 81 mg 08/07/25 09:00 08/10/25 09:08 Aspirin Ec 81 Mg Tabec PO 09/06/25 08:59 81 mg QDAY RONEY Administration Atorvastatin Calcium 10 mg 08/07/25 21:00 08/10/25 20:16 Atorvastatin Calcium 10 Mg Tablet PO 09/06/25 20:59 10 mg HS RONEY Administration Balsam Alesia/[place] Oil 0 gm 08/10/25 12:00 08/10/25 20:58 Balsam Alesia/[place] Oil (Venelex) 60 Gm Tube TOP 09/09/25 11:59 1 applicatio BID RONEY Administration Carvedilol 25 mg 08/09/25 08:00 08/11/25 07:24 Carvedilol 12.5 Mg Tablet PO 09/08/25 07:59 25 mg BIDWM RONEY Administration Heparin Sodium (Porcine) 5,000 unit 08/06/25 22:00 08/11/25 05:26 Heparin Sod Inj 5000 Unit/Ml Vial SC 08/20/25 21:59 5,000 unit Q8HR RONEY Administration Ceftriaxone Sodium/Dextrose 1 gm in 50 mls @ 100 mls/hr 08/09/25 20:45 08/10/25 20:47 Rocephin/D5w 1gm Iv Premix IV 08/16/25 20:44 Infused DAILY@2100 RONEY Infusion Levothyroxine Sodium 100 mcg 08/08/25 06:00 08/11/25 05:25 Levothyroxine Sodium 100 Mcg Tablet PO 09/07/25 05:59 100 mcg ACBR RONEY Administration Losartan Potassium 50 mg 08/08/25 09:00 08/10/25 09:05 Losartan Potassium 25 Mg Tablet PO 09/07/25 08:59 50 mg QDAY RONEY Administration Ondansetron HCl 4 mg 08/06/25 20:21 Ondansetron Inj 2 Mg/Ml Inj 2 Ml IVP 09/05/25 20:20 Q6H PRN NAUSEA OR VOMITING Protocol Sennosides 1 tab 08/07/25 09:00 08/10/25 09:05 Senna/Docusate Sod 1 Tab Tablet PO 09/06/25 08:59 1 tab QDAY RONEY Administration Protocol Plan Danay Meneses is a 70-year-old female with a history of CAD s/p multiple stents in 2012 and 2017 for RCA/OM branch of LCx/mid-LAD, HFpEF (EF 56% 01/2025), hypertension, hyperlipidemia, hypothyroidism s/p thyroidectomy 1994, renal cell carcinoma s/p nephrectomy and followed at [facility] [place], fibromyalgia and chronic low back pain who is admitted for syncope, rhabdomyolysis, and cardiology consulted given history of CAD in setting of syncope. #Syncope #Ground-level fall #History of CAD s/p stents in 2012 and 2017 Presents after ground-level fall that patient cannot recall and was on the floor for approximately 5 hours prior to EMS contact. Denies any chest pain, shortness of breath, palpitations, weakness, or numbness. Unlikely to be cardiac-related given history, negative troponins, and normal EKG findings. CT head, hip/pelvic XR, and CXR all unremarkable. She had complete, non-invasive cardiac work-up as outpatient on 01/2025 that included an echo that showed EF of 56% with diastolic dysfunction and lexiscan that was unremarkable. ? Continue home aspirin 81 mg daily ? Continue home rosuvastatin 5 mg or equivalent at bedtime #HFpEF (EF 56% on 01/2025) Known to have chronic lower extremity edema and is on torsemide 20 mg outpatient but is not fluid overload at this time given lack of crackles, edema, and JVD. ? Continue to follow-up outpatient ? Can give gentle IVF per discretion of primary team for rhabdomyolysis, but may not be needed given improvement in CK #Hypertension Per clinic note on 02/2025 patient takes carvedilol 25 mg BID, losartan 50 mg BID, and torsemide 20 mg daily at home ? Continue home meds per primary team discretion #Rhabdomyolysis #Renal cell carcinoma #Hypothyroidism #Hypertension #Hyperlipidemia #Fibromyalgia #Chronic low back pain #Anxiety ? Continue management per primary team ----- Plan discussed with attending physician Dr. Zak Cosme MD PGY-2 Internal Medicine
[2025-08-11] MEDS: ASPIRIN EC 81 MG TABEC PO (08:34)
[2025-08-11] MEDS: SENNA/DOCUSATE SOD 1 TAB TABLET PO (08:34)
[2025-08-11] MEDS: LOSARTAN POTASSIUM 25 MG TABLET 50 MG PO (08:34)
--- NOTE | 2025-08-11 11:41 | PD.RESPRO ---
Documentation for date of: 08/11/25 Subjective Subjective Interval history: Patient seen at bedside. Had foul smelling urine, UA was positive for UTI, sent for UCx. Started on abx. No burning sensation. Nolen removed. Labs and vitals are stable. Pending SNF placement, patient was transition to inpatient setting, pending 2 midnight for SNF placement. Exam Vital Signs Temp Pulse Resp BP Pulse Ox O2 Del Method 97.1 F 98 19 171/89 H 96 Room Air 08/11/25 08:00 08/11/25 08:34 08/11/25 08:00 08/11/25 08:34 08/11/25 08:00 08/11/25 08:00 Narrative Exam General: No acute distress, conversing well Eye: PERRL, EOMI, normal conjunctiva, no scleral icterus HENT: Normocephalic, atraumatic, normal hearing, moist oral mucosa, hoarse voice Neck: Supple, non-tender, no JVD, no lymphadenopathy Lungs: Clear to auscultation bilaterally, non-labored respirations, symmetric chest rise, no use of accessory muscles Heart: Normal S1 and S2. Normal rate and regular rhythm, no murmurs, rubs gallops. Peripheral pulses intact bilaterally, capillary refill brisk distally. 2+ b/l LE with pain out of proportion Abdomen: Soft, non-tender, non-distended, normal bowel sounds. No guarding or rebound tenderness. Musculoskeletal: Normal range of motion and strength, no tenderness or swelling Skin: Skin is warm, dry, no rashes or lesions. Neurologic: Alert, awake and oriented x3. CN II-XII grossly intact. No focal neuro deficits. No signs of meningeal irritation noted. Psychiatric: Cooperative, appropriate mood and affect Objective Labs 08/11/25 05:11 08/11/25 05:11 Labs: Laboratory Results - last 24 hr 08/11/25 05:11 WBC 7.5 RBC 4.20 Hgb 12.5 Hct 36.9 MCV 88 MCH 29.8 MCHC 33.9 RDW Std Deviation 40.4 Plt Count 242 Neut % (Auto) 51 Lymph % (Auto) 34 [place] % (Auto) 10 Eos % (Auto) 4 Baso % (Auto) 1 Neut # (Auto) 3.8 Lymph # (Auto) 2.5 [place] # (Auto) 0.7 Eos # (Auto) 0.3 Baso # (Auto) 0.0 Immature Gran # (Auto) 0.07 H Absolute Nucleated RBC 0.00 Immature Gran % 1 H Nucleated RBC % 0 Sodium 142 Potassium 3.8 Chloride 103 Carbon Dioxide 27.1 Anion Gap 12 BUN 8 L Creatinine 1.1 Estim Creat Clear Calc 62.1 eGFR 53 L BUN/Creatinine Ratio 7 L Glucose 106 D Calculated Osmolality 281 Calcium 9.6 Corrected Calcium 9.6 Total Bilirubin 0.5 AST 19 ALT 15 Alkaline Phosphatase 58 Total Protein 6.6 Albumin 4.3 Globulin 2.3 Albumin/Globulin Ratio 1.9 Quality Measures Quality Measures none Assessment & Plan Assessment Current Active Medications: Generic Name Dose Route Start Last Admin Trade Name Freq PRN Reason Stop Dose Admin Acetaminophen 650 mg 08/06/25 20:21 08/07/25 18:42 Acetaminophen 325 Mg Tablet PO 09/05/25 20:20 650 mg Q6H PRN Administration Fever >101.5 Acetaminophen 650 mg 08/06/25 20:21 08/11/25 02:42 Acetaminophen 325 Mg Tablet PO 09/05/25 20:20 650 mg Q6H PRN Administration PAIN SCALE 1-3 (mild Hydrocodone Bitart/Acetaminophen 1 tab 08/09/25 11:12 08/11/25 07:24 Hydrocodone/Apap 5/325 Tablet PO 08/14/25 11:11 1 tab Q8HR PRN Administration PAIN SCALE 4-10(Mod-Sev Alprazolam 0.5 mg 08/07/25 12:15 08/11/25 08:33 Alprazolam 0.25 Mg Tablet PO 08/12/25 12:14 0.5 mg BID KILLIAN Administration Aspirin 81 mg 08/07/25 09:00 08/11/25 08:34 Aspirin Ec 81 Mg Tabec PO 09/06/25 08:59 81 mg QDAY KILLIAN Administration Atorvastatin Calcium 10 mg 08/07/25 21:00 08/10/25 20:16 Atorvastatin Calcium 10 Mg Tablet PO 09/06/25 20:59 10 mg HS KILLIAN Administration Balsam Alesia/Gilbert Oil 0 gm 08/10/25 12:00 08/10/25 20:58 Balsam Dor[place]/Gilbert Oil (Venelex) 60 Gm Tube TOP 09/09/25 11:59 1 applicatio BID KILLIAN Administration Carvedilol 25 mg 08/09/25 08:00 08/11/25 07:24 Carvedilol 12.5 Mg Tablet PO 09/08/25 07:59 25 mg BIDWM KILLIAN Administration Heparin Sodium (Porcine) 5,000 unit 08/06/25 22:00 08/11/25 05:26 Heparin Sod Inj 5000 Unit/Ml Vial SC 08/20/25 21:59 5,000 unit Q8HR KILLIAN Administration Ceftriaxone Sodium/Dextrose 1 gm in 50 mls @ 100 mls/hr 08/09/25 20:45 08/10/25 20:47 Rocephin/D5w 1gm Iv Premix IV 08/16/25 20:44 Infused DAILY@2100 KILLIAN Infusion Levothyroxine Sodium 100 mcg 08/08/25 06:00 08/11/25 05:25 Levothyroxine Sodium 100 Mcg Tablet PO 09/07/25 05:59 100 mcg ACBR KILLIAN Administration Losartan Potassium 50 mg 08/11/25 21:00 Losartan Potassium 25 Mg Tablet PO 09/10/25 20:59 BID KILLIAN Ondansetron HCl 4 mg 08/06/25 20:21 Ondansetron Inj 2 Mg/Ml Inj 2 Ml IVP 09/05/25 20:20 Q6H PRN NAUSEA OR VOMITING Protocol Sennosides 1 tab 08/07/25 09:00 08/11/25 08:34 Senna/Docusate Sod 1 Tab Tablet PO 09/06/25 08:59 1 tab QDAY KILLIAN Administration Protocol Plan 70 y/o female with PMHx CHF, hypothyroidism, HTN,CAD, renal cell carcinoma, fibromyalgia, dyslipidemia, dementia, chronic low back pain who presented to the ED on 08/06 after a fall. Admitted to obs for elevated CK 2/2 fall. #UTI, resolving UA 08/09 positive for leuk and nitrites UCx pending Plan - Nolen removal - CTX 1g IV qday #Syncope, resolved #Orthostatic hypotension 2/2 to Unwitnessed fall, was on the ground for 5 hours, hit head and extremities CT head, XR hip/pelvis negative Given 1L NS in ED Patient denies history of dementia Plan: ?Echocardiogram recently done this year and showed relatively normal heart function ?Dr. Crespo consulted to rule out cardiac cause of syncope, see recommendations #Hx of HFpEF Last echo done 01/27/2025 and showed EF 56% with LV diastolic dysfunction. Mild to moderate aortic regurgitation. Lexiscan 02/20 was also normal No crackles on lung auscultation, 2+ b/l LE pitting edema BNP WNL Takes carvedilol 25 mg twice daily Plan: - Dr. Crespo consulted to rule out cardiac cause of syncope, see recommendations #Bilateral LE pain TTP of b/l calves Plan: - LE Doppler to assess for DVT, negative #Renal cell carcinoma, bilateral dx 2011, recent laparoscopic surgery R kidney Plan: - continue to follow w/ outpatient oncology at [facility] #Hypothyroidism TSH 0.04, free T41.65 ?Resume levothyroxine home dose 100 mcg daily #Hypertension -Continue losartan 50 daily BID -Continue Coreg 25 twice daily #Hyperlipidemia Home med Rosuvastatin 5 mg PO QHS, pending med rec Plan: - Atorvastatin 10 mg PO QHS #History of CAD No current chest pain/pressure Plan: - Aspirin 81 mg PO daily ?Atorvastatin 10 mg daily #Fibromyalgia #Chronic low back pain Patient takes Xanax 2 mg twice daily and Susan 10/325 1.5 tabs daily Plan: -Xanax 0.5 mg twice daily #Rhabdomyolysis, resolved Health maintenance: Dispo: MedSurg Diet: cardiac Bowel Reg: doc/senna daily killian VTE ppx: heparin subQ GI ppx: n/a Pain mgmt: Tylenol PRN Code status: limited - ok CPR, DNR Case discussed with my attending Dr. Ziegler, and senior resident, Dr. Elise Garcia MD PGY-1
--- NOTE | 2025-08-11 16:31 | PD.RESDS ---
Planned Discharge Date 08/11/25 DS: Providers Provider Date of admission: 08/09/25 10:53 Primary care physician: Giovany Vazquez MD Admitting Provider: Jovi Hyde MD Attending Provider on Admission: Duncan Ziegler MD Consults: 08/07/25 09:03 Referral Physical Therapy Routine Comment: Physician Instructions: 08/07/25 16:24 Consult to Cardiology Routine Comment: Consulting Provider: Liberty Crespo 08/08/25 08:00 Referral Wound Care Urgent Comment: 08/10/25 11:56 Referral OP Wound Healing Dept Routine Comment: Instructions: Stage 2 to right buttocks after fall and down time 4-5 hrs Attending Provider on DC: Duncan Ziegler MD Discharging Provider: Duncan Ziegler MD DS: Diagnosis Problem List Completed Was Problem List Reviewed/Reconciled?: Yes Hospital Course Hospital Course Hospital course: 70 y/o female with PMHx HFpEF, hypothyroidism, HTN,CAD, renal cell carcinoma, fibromyalgia, dyslipidemia, dementia, chronic low back pain who presented to the ED on 08/06 after a fall. Admitted for syncope workup. ED course: Initial vitals included T 97.4, BP 162/93, HR 92, O2 sat 98% RA. Labs significant for CK 1868. AST 58, LDH 308. Trop negative, BNP WNL. UA negative for UTI, 1+ blood, <[address] head, CXR, hip/pelvix XR negative for fractures. Given 1L LR in ED. Hospital course: Rhabdomyolysis improved with IVF, no renal complications identified. Syncope workup revealed orthostatic hypotension, likely culprit torsemide. We have discontinued this medication. Non-invasive cardiac work-up as outpatient on 01/2025 that included an ECHO that showed EF of 56% with diastolic dysfunction and lexiscan that was unremarkable. Patient also developed UTI for which CTX was given for 3 days. Patient was recommended by PT to go to SNF, however patient did not want that and wanted to go home instead, patient and family member, , were made aware of the risks of that decision including further falls. However, they decided to still pursue it. Patient has been discharged home with home health. Discharge instructions: - Follow-up with Dr. Crespo, cardiology, within 1 week of discharge - Please take Coreg 25 mg by mouth daily and Losartan 50mg by mouth twice a day for high blood pressure - Follow-up with your PCP within 1 week of discharge or follow-up at the [facility] [address] [place] [address] - If your symptoms worsen or if you develop new chest pain, shortness of breath, dizziness or loss of consciousness - please come back to the ED immediately. 1) Wound Care: Right buttocks stage 2: cleanse well with wound cleanser spray and pat dry. Apply thin layer of Venelex ointment to wound bed. Layer with calcium alginate. Skin prep to wound edges and secure with overlapping lapping allyven dressings BID/PRN for soiling or falling off. Side to side repositioning except for meals to offload right buttocks Admission diagnoses: #UTI #Syncope 2/2 #Orthostatic hypotension #History of CHF #Bilateral LE pain #Renal cell carcinoma, bilateral #Hypothyroidism #Hypertension #Hyperlipidemia #History of CAD #Fibromyalgia #Chronic low back pain #Rhabdomyolysis, resolved Case discussed with my attending Dr. Ziegler, and senior resident, Dr. Elise Garcia MD PGY-1 Status at Discharge Overall status at discharge: patient is progressing back to baseline Time Spent with Patient Time attestation: Total time spent providing and/or coordinating discharge services: Time spent: Greater than 30 minutes Home Health Home Health Referral Orders: 08/11/25 15:50 Home Health Referral Routine Reason For Exam: Home PT, patient declined SNF Home-Bound The patient must either because of illness or injury, need the aid of supportive devices such as crutches, canes, wheelchairs, and walkers; the use of special transportation; or the assistance of another person in order to leave their place of residence; OR have a condition such that leaving his or her home is medically contraindicated. In addition, the patient also meets the following criteria: patient is normally unable to leave the home and leaving home requires considerable taxing effort. Addendum to Home Health Certification Practitioner's Certification: I certify that the patient has been under my care in the hospital and the care of attending physician (see below). We had a [id number] encounter on (see date below). My clinical findings indicate that the patient is home bound per the above criteria and the Home Health Services noted in these orders are medically necessary. The primary reason for the [id number] encounter is related to the fact that the patient requires home health services. Date Certifying [id number] Physician Encounter: 08/06/25 Physician's Name who will Assume Oversight for Services: Giovany Vazquez Physician's Phone No.who will Assume Oversight for Service: [employer]ATOR - Community Resources: Yes PT to Evaluate: Yes PT to evaluate and provide a treatmnet plan to increase patient's mobility and strength. Wound Care: No IV Therapy: No RN Safety Evaluation: Yes RN to evaluate and create a plan of care that will produce positive outcomes. Palliative Treatment: No Palliative treatment and evaluate the need for hospice. Home Health Aide - Personal Care: Yes Home Health Aide to assist with any ADL's. Exam Vital Signs Temp Pulse Resp BP Pulse Ox O2 Del Method 97.1 F 99 18 174/89 H 94 L Room Air 08/11/25 16:00 08/11/25 16:00 08/11/25 16:00 08/11/25 16:00 08/11/25 16:00 08/11/25 16:00 Narrative Exam General: No acute distress, conversing well Eye: PERRL, EOMI, normal conjunctiva, no scleral icterus HENT: Normocephalic, atraumatic, normal hearing, moist oral mucosa, hoarse voice Neck: Supple, non-tender, no JVD, no lymphadenopathy Lungs: Clear to auscultation bilaterally, non-labored respirations, symmetric chest rise, no use of accessory muscles Heart: Normal S1 and S2. Normal rate and regular rhythm, no murmurs, rubs gallops. Peripheral pulses intact bilaterally, capillary refill brisk distally. 2+ b/l LE with pain out of proportion Abdomen: Soft, non-tender, non-distended, normal bowel sounds. No guarding or rebound tenderness. Musculoskeletal: Normal range of motion and strength, no tenderness or swelling Skin: Skin is warm, dry, no rashes or lesions. Neurologic: Alert, awake and oriented x3. CN II-XII grossly intact. No focal neuro deficits. No signs of meningeal irritation noted. Psychiatric: Cooperative, appropriate mood and affect Discharge Plan Plan Patient Disposition: Home w/HOME HEALTH Care Plan Goals: Follow-up with Dr. Crespo, cardiology, within 1 week of discharge Please take Coreg 25 mg by mouth daily and Losartan 50mg by mouth twice a day for high blood pressure Follow-up with your PCP within 1 week of discharge or follow-up at the [facility] [address] [place] [address] If your symptoms worsen or if you develop new chest pain, shortness of breath, dizziness or loss of consciousness - please come back to the ED immediately. 1) Wound Care: Right buttocks stage 2: cleanse well with wound cleanser spray and pat dry. Apply thin layer of Venelex ointment to wound bed. Layer with calcium alginate. Skin prep to wound edges and secure with overlapping lapping allyven dressings BID/PRN for soiling or falling off. Side to side repositioning except for meals to offload right buttocks Prescriptions/Referrals Prescriptions/Med Rec: New carvedilol [Coreg] 25 mg tablet 25 mg PO BID 30 Days Qty: 60 0RF Rx Instructions: must administer with a meal/food losartan 50 mg tablet 50 mg PO BID 30 Days Qty: 60 0RF Continued hydrocodone-acetaminophen 10-325 mg Tablet 1.5 tab PO QDAY Qty: 0 levothyroxine 100 mcg Tablet 100 mcg PO QDAY Qty: 0 alprazolam [Xanax] 2 MG tablet 2 mg PO BID Qty: 0 aspirin 81 mg Tablet 81 mg PO HS Qty: 0 nitroglycerin 0.4 mg Tablet, Sublingual 0.4 mg BUCCAL PRN PRN (Reason: Chest Pain) Premarin 0.3 mg Tablet 0.3 mg PO QDAY rosuvastatin 5 mg Tablet 5 mg PO HS Discontinued losartan 50 mg Tablet 50 mg PO BID carvedilol 12.5 mg Tablet 12.5 mg PO BID clopidogrel 75 mg Tablet 75 mg PO QDAY sulfamethoxazole-trimethoprim 800-160 mg tablet 1 tab PO BID losartan 50 mg tablet Patient Comments: TAKE 1 TABLET BY MOUTH TWICE DAILY torsemide 20 mg tablet Patient Comments: TAKE 1 TABLET BY MOUTH DAILY Referrals: Giovany Vazquez MD [Primary Care Provider] Liberty Crespo MD [Physician, Cardiology] Patient/Caregiver Discharge Instructions Education Materials: Controlling High Blood Pressure, Blood Pressure Check Steps Print Language: Bulgarian Stand Alone Forms: Kelsie Award Info., Patient Portal Info Letter Discharge Order Discharge Orders: Discharge (Routine); Ordered 08/11/25 Ordered By: Leno Olivares Quality Discharge Quality Measures VTE prophylaxis Attestestation MD Attestation I reviewed labs, imaging, EKG, home medications and prior available records. Face to face evaluation was performed by me. I have personally examined the patient and discussed assessment and plan with the IM team. I reviewed the resident note and agree with the plan with exceptions as below. Ground-level fall Dementia Rhabdomyolysis, resolved Orthostatic hypotension PT recommended SNF. She needs 3 inpatient night stays. Patient declined SNF and wants to go home with home health IV hydration Continue aspirin and statin Continue losartan 50 mg twice daily Hold torsemide upon discharge Outpatient follow-up with cardiology Time spent is 37 minutes. More than 50% of the time was spent on patient education and coordination of care.
--- NOTE | 2025-08-12 12:23 | PC.SS ---
Addendum entered by Debbie Leon 08/12/25 14:19: SS verified with Emeli from [employer]ization Review pt did not meet in patient status on 08-08-25. SS has informed Katina at [facility] Original Note: SS called and confirmed with pt she is requesting to go to [facility] from home.
--- NOTE | 2025-08-12 15:30 | PC.CC ---
Addendum entered by Darline Cifuentes RN 08/12/25 17:07: SOC 08/14/25 Original Note: HH ref sent out, [facility] accepted and booked, soc pending
== END 2025-08-11 16:54 | disposition home health service (06) | DRG 312 ==
LOC: SERX 20:25 → SERHOLD 20:36 → S3SX 23:44
PROVIDERS: Nurse Practitioner Family; Student in an Organized Health Care Education/Training Program; Admitting Provider Internal Medicine; Emergency Provider Family Medicine; PCP Internal Medicine Endocrinology, Diabetes & Metabolism; Visit Provider Student in an Organized Health Care Education/Training Program
DX: I95.1 Orthostatic hypotension (principal); M62.82 Rhabdomyolysis; I50.32 Chronic diastolic (congestive) heart failure; N39.0 Urinary tract infection, site not specified; F03.94 Unspecified dementia, unspecified severity, with anxiety; F03.92 Unspecified dementia, unspecified severity, with psychotic disturbance; C64.9 Malignant neoplasm of unspecified kidney, except renal pelvis; T50.1X5A Adverse effect of loop [high-ceiling] diuretics, initial encounter; I25.10 Atherosclerotic heart disease of native coronary artery without angina pectoris; I11.0 Hypertensive heart disease with heart failure; E78.5 Hyperlipidemia, unspecified; E89.0 Postprocedural hypothyroidism; G89.29 Other chronic pain; Z66 Do not resuscitate; M79.7 Fibromyalgia; Z79.02 Long term (current) use of antithrombotics/antiplatelets; Z79.82 Long term (current) use of aspirin; Z79.890 Hormone replacement therapy; Z79.899 Other long term (current) drug therapy; Z90.5 Acquired absence of kidney; Z90.710 Acquired absence of both cervix and uterus; Z95.5 Presence of coronary angioplasty implant and graft; Z88.5 Allergy status to narcotic agent; W18.30XA Fall on same level, unspecified, initial encounter
CPT/HCPCS: 36415; 70450; 71045; 73502; 80048; 80053; 81001; 82550; 83605; 83615; 83690; 83735; 83880; 84100; 84145; 84439; 84443; 84484; 85025; 85610; 85730; 87040; 87077; 87081; 87086; 87186; 93005; 93970; 96360; 96372; 97162; 99285; A4314; G0378; J0696; J1644; J7120; A9270

== ENCOUNTER 2025-08-13 13:00 | Emergency (ER) | payer MEDICARE, SELFPAY ==
[2025-08-13 13:02] VITALS: BP 125/78; PULSE 70; RESP 18; TEMP 36.6; O2SAT 98
[2025-08-13 13:05] VITALS: PULSE 80; RESP 18; O2SAT 97; BMI 30.2
[2025-08-13 13:18] VITALS: BP 138/79; PULSE 82; RESP 18; TEMP 36.6; O2SAT 100
--- NOTE | 2025-08-13 13:51 | XR_ITS ---
Examination: Abdomen AP single view Technique: AP portable supine abdomen, single view Exam date and time: August 13, 2025, 1410 hours INDICATIONS: Constipation beginning 3 days ago FINDINGS: Moderate air and stool throughout the colon No obstruction No free air IMPRESSION: Nonobstructive bowel gas pattern
--- NOTE | 2025-08-13 13:53 | PD.EDADULT ---
ED General RME/HPI General Chief complaint: Weakness Stated complaint: WEAKNESS Time Seen by Provider: 08/13/25 13:22 Arrival date/time: 08/13/25 13:00 RME / HPI RME / HPI narrative: Danay is a 70 y/o female with PMHx HFpEF, hypothyroidism, HTN,CAD, renal cell carcinoma, fibromyalgia, dyslipidemia, dementia, chronic low back pain who comes in for evaluation of generalized weakness, that has been chronic. Pt reports that she was recently admitted into the hospital after having a fall and she was recommended to go to a SNF, however despite the recommendation and being told the risks and benefits, she decided to pursue with home-health.Today, she reports that she had a high school social studies teacher come to her house who had recommended her to call an ambulance in which she did so. Today, she is complaining of generalized weakness throughout her body, however, she says this is ongoing for a long time. She also states that she is open to going to a care home facility. No other complaints at this time. Related Data Home Medications ?Medication ?Instructions ?Recorded ?Confirmed alprazolam 2 mg tablet (Xanax) 2 mg PO BID #0 tabs 09/17/15 08/06/25 aspirin 81 mg tablet 81 mg PO HS ##0 09/17/15 08/06/25 hydrocodone 10 mg-acetaminophen 1.5 tab PO QDAY #0 tabs 09/17/15 08/06/25 325 mg tablet levothyroxine 100 mcg tablet 100 mcg PO QDAY Thyroid #0 tabs 09/17/15 08/06/25 conjugated estrogens 0.3 mg tablet 0.3 mg PO QDAY 05/11/21 08/06/25 (Premarin) nitroglycerin 0.4 mg sublingual 0.4 mg buccal PRN PRN Chest Pain 05/11/21 08/06/25 tablet rosuvastatin 5 mg tablet 5 mg PO HS 05/11/21 08/06/25 Previous Rx's ?Medication ?Instructions ?Recorded carvedilol 25 mg tablet (Coreg) 25 mg PO BID 1 month #60 tabs 08/08/25 losartan 50 mg tablet 50 mg PO BID 1 month #60 tabs 08/11/25 Allergies Allergy/AdvReac Type Severity Reaction Status Date / Time morphine Allergy Intermediate Diarrhea Verified 08/06/25 13:12 Review of Systems Review of Systems Narrative Review of Systems: 12 point ROS reviewed and is otherwise negative unless stated directly in the HPI ED Exam Narrative Physical exam: General: AAOx3, NAD, HEENT: Moist mucous membranes, conjunctiva clear, EOMI, PERRLA, Cardiovascular: S1, S2, radial pulses +2 bilat, RRR Pulmonary: CTAB bilat no cough, no wheezing GI: No tenderness to light or deep palpitation, no guarding, rigidity, rebound tenderness or distension, abdomen soft Skin: Chronic superficial wound, appears to be slightly red, on R buttock covered with bandage, appears to be slightly red, it is circular, however no active drainage or ulceration Extremities: Minimal trace edema in lower extremities bilaterally, dorsalis pedis pulses +2 bilaterally Neuro: AAOx3, no focal motor or sensory deficits in the UE or LE bilat Psych: Cooperative Course Quality Measures none Orders Category Date Time Status Insert IV NOW Care 08/13/25 13:53 Active XR abdomen 1V Stat Exams 08/13/25 13:51 Taken CBC Stat Lab 08/13/25 14:08 Completed CK [Creatine Kinase] Stat Lab 08/13/25 14:08 Completed CMP [Comprehensive Metabolic Panel] Stat Lab 08/13/25 14:08 Completed Lidocaine 2% Viscous [Xylocaine 2% Viscous] Med 08/13/25 13:51 Discontinued 15 ml PO X1 ONE Pantoprazole Inj [Protonix Inj] Med 08/13/25 13:51 Discontinued 40 mg IVP X1 ONE mg Hyd/Al Hyd/Miriam Susp [Maalox Susp] Med 08/13/25 13:51 Discontinued 30 ml PO X1 ONE Vital Signs Vital signs: Vital Signs Temperature 97.9 F 08/13/25 13:02 Pulse Rate 70 08/13/25 13:02 Respiratory Rate 18 08/13/25 13:02 Blood Pressure 125/78 08/13/25 13:02 Pulse Oximetry (%) 98 08/13/25 13:02 Oxygen Delivery Method Room Air 08/13/25 13:02 Discharge Plan Plan Patient Disposition: Home w/HOME HEALTH Prescriptions/Referrals Prescriptions/Med Rec: No Action hydrocodone-acetaminophen 10-325 mg Tablet 1.5 tab PO QDAY Qty: 0 levothyroxine 100 mcg Tablet 100 mcg PO QDAY Qty: 0 alprazolam [Xanax] 2 MG tablet 2 mg PO BID Qty: 0 aspirin 81 mg Tablet 81 mg PO HS Qty: 0 nitroglycerin 0.4 mg Tablet, Sublingual 0.4 mg BUCCAL PRN PRN (Reason: Chest Pain) Premarin 0.3 mg Tablet 0.3 mg PO QDAY rosuvastatin 5 mg Tablet 5 mg PO HS carvedilol [Coreg] 25 mg tablet 25 mg PO BID 30 Days Qty: 60 0RF Rx Instructions: must administer with a meal/food losartan 50 mg tablet 50 mg PO BID 30 Days Qty: 60 0RF Referrals: Brittaney Vazquez MD [Primary Care Provider, Gastroenterology] - In 1 week Problem List Clinical Impression: Weakness generalized Patient/Caregiver Discharge Instructions Discharge Activity: activity as tolerated Education Materials: ED Weakness (Uncertain Cause) Additional Instructions: Discharge instructions Follow-up with your PCP within 1 week Take your medicines as prescribed Continue with home health Physical Therapy. Return to ED if your symptoms worsen or return Print Language: Central African Stand Alone Forms: Kelsie Award Info., Patient Portal Info Letter MDM Narrative MDM hospital course (for use when minimal MDM required): 1400: GI cocktail (lidocaine, protonix, and Maalox) , abdomen X-ray, CMP and CBC with CK. 1509: Labs reviewed, wnl at this time. Abdominal XRay pending read. CK wnl. Pt's pain is improved and pt is medically cleared for discharge. Medication Administration(s) Medication Administration History Discontinued Medications Al Hydrox/Mg Hydrox/Simethicone (Mg Hyd/Al Hyd/Miriam (Maalox Reg) Susp 30 Ml Udc) 30 ml PO X1 ONE Stop: 08/13/25 13:52 Last Admin: 08/13/25 14:06 Dose: 30 ml Documented By: BY Lidocaine HCl (Lidocaine Viscous 2% 15 Ml Udc) 15 ml PO X1 ONE Stop: 08/13/25 13:52 Last Admin: 08/13/25 14:06 Dose: 15 ml Documented By: BY Pantoprazole Sodium (Pantoprazole Inj 40 Mg Vial) 40 mg IVP X1 ONE Stop: 08/13/25 13:52 Last Admin: 08/13/25 14:06 Dose: 40 mg Documented By: BY Diagnosis Diagnoses ruled out and/or further discussions: Generalized weakness, fall, Rhabdomyolysis
[2025-08-13] MEDS: MG HYD/AL HYD/SIME (Maalox Reg) SUSP 30 ML UDC PO (14:06)
[2025-08-13] MEDS: LIDOCAINE VISCOUS 2% 15 ML UDC PO (14:06)
[2025-08-13 14:23] LABS: Basophils # (Auto) 0.0 Thou/mm3 (0.0-0.2); Basophils % (Auto) 1 % (0-2.5); Eosinophils # (Auto) 0.1 Thou/mm3 (0.0-0.5); Eosinophils % (Auto) 2 % (0-10); Hematocrit 37.4 % (36.0-46.0); Hemoglobin 12.2 g/dL (12.0-16.0); Immature Granulocytes Auto 0.04 Thou/mm3 (0.00-0.00); Lymphocytes # (Auto) 1.9 Thou/mm3 (1.0-4.8); Lymphocytes % (Auto) 29 % (10-50); Mean Corpuscular HGB Conc 32.6 g/dl (31.0-37.0); Mean Corpuscular Hemoglobin 29.2 pg (25.0-35.0); Mean Corpuscular Volume 90 fL (80-100); Monocytes # (Auto) 0.5 Thou/mm3 (0.0-0.8); Monocytes % (Auto) 8 % (0-12); Neutrophils # (Auto) 3.9 Thou/mm3 (1.8-7.7); Neutrophils % (Auto) 60 % (37-80); Nucleated Red Blood Cell # 0.00 Thou/mm3 (0.00-0.00); Nucleated Red Blood Cell % 0 /100 WBC (0); Platelet Count 252 Thou/mm3 (140-440); RDW Standard Deviation 42.4 fL (36.4-46.3); Red Blood Count 4.18 Miln/mm3 (4.00-5.20); White Blood Count 6.5 Thou/mm3 (3.6-11.0)
--- NOTE | 2025-08-13 14:24 | PC.CC ---
1424-ASW received a request from Dr. Correa to speak with pt about SNF because at this time, pt is wanting SNF but does not qualify as she has not had a 3 midnight stay w/in 30 days. Pt stated she was d/c a few days ago from [facility] and truly demanded to be d/c when she was not ready. Pt stated she understands that she just needed one more day to qualify for the 3 midnight stay but since she left at 2 midnight stay, she does not qualify for a SNF placement at this time. Pt stated she was present today to try to get accepted to SNF. ASW explained the situation and pt and her spouse understood. ASW provided pt and spouse with local SNF information and informed the spouse that he could f/u with the SNF facilities on his own to ask if they could work with him. Pt and spouse understood. [facility] is aware of pts needs as a referral was placed yesterday for the pt. [facility] will f/u with the pt.
[2025-08-13 14:45] LABS: Alanine Aminotransferase 12 U/L (10-49); Albumin, Serum 4.2 gm/dL (3.4-4.8); Albumin/Globulin Ratio 2.2 (1.2-2.2); Alkaline Phosphatase 54 U/L (46-116); Anion Gap 12 (7-16); Aspartate Amino Transferase 20 U/L (0-34); BUN/Creatinine Ratio 8 Ratio (12-20); Bilirubin,Total 0.6 mg/dL (0.3-1.2); Blood Urea Nitrogen 10 mg/dL (9-23); Calcium 9.3 mg/dL (8.3-10.6); Calcium (Corrected) 9.3 mg/dL (8.5-10.1); Carbon Dioxide 27.5 mMol/L (20.0-31.0); Chloride 102 mMol/L (98-107); Creatine Kinase 54 U/L (34-171); Creatinine (Component) 1.3 mg/dL (0.6-1.3); Estimated Creatinine Clearance 52.1 mL/min (>60); Globulin 1.9 gm/dL (2.3-3.5); Glucose 111 mg/dL (74-106); Osmolality,Calculated 281 (275-295); Potassium 3.9 mMol/L (3.4-5.1); Sodium 141 mMol/L (136-145); Total Protein 6.1 gm/dL (5.7-8.2); eGFR 44 See Note
[2025-08-13 15:44] VITALS: BP 133/79; PULSE 85; RESP 17; TEMP 36.6; O2SAT 100
== END 2025-08-13 15:45 | disposition home health service (06) ==
PROVIDERS: PCP Specialist
DX: M62.82 Rhabdomyolysis (principal); E03.9 Hypothyroidism, unspecified; E78.5 Hyperlipidemia, unspecified; F03.90 Unspecified dementia, unspecified severity, without behavioral disturbance, psychotic disturbance, mood disturbance, and anxiety; G89.29 Other chronic pain; I11.0 Hypertensive heart disease with heart failure; I25.10 Atherosclerotic heart disease of native coronary artery without angina pectoris; I50.32 Chronic diastolic (congestive) heart failure; M79.7 Fibromyalgia; Z85.528 Personal history of other malignant neoplasm of kidney
CPT/HCPCS: 36415; 74018; 80053; 82550; 85025; 96374; 99283; J2470; J3490; A9270

== ENCOUNTER → 2025-08-18 | Outpatient (CLI) | payer MEDICARE, SELFPAY | END | disposition home or self-care (01) | PROVIDERS: PCP Specialist; Referring Provider Specialist; Visit Provider Student in an Organized Health Care Education/Training Program | DX: S31.819A Unspecified open wound of right buttock, initial encounter (principal); W19.XXXA Unspecified fall, initial encounter; I10 Essential (primary) hypertension; I25.10 Atherosclerotic heart disease of native coronary artery without angina pectoris; M54.50 Low back pain, unspecified; M79.7 Fibromyalgia; E78.5 Hyperlipidemia, unspecified; F03.90 Unspecified dementia, unspecified severity, without behavioral disturbance, psychotic disturbance, mood disturbance, and anxiety; C64.9 Malignant neoplasm of unspecified kidney, except renal pelvis | CPT/HCPCS: 99213; A9270; G0463 ==

== ENCOUNTER 2025-09-22 17:14 | Emergency (ER) | payer MEDICARE, SELFPAY ==
[2025-09-22 17:24] VITALS: PULSE 67; RESP 18; BMI 27.8
[2025-09-22 17:28] VITALS: BP 151/71; PULSE 65; RESP 18; TEMP 36.8; O2SAT 97
--- NOTE | 2025-09-22 17:47 | XR_ITS ---
Examination: CT brain head without contrast. 2-D sagittal coronal reconstructions Date and time of exam: September 22, 2025, 1845 hours INDICATIONS: Ground-level fall today with injury to the head, head pain CTDI: vol (mGy): 15.6 DLP: (mGycm): 1010 Technique: Multiple CT axial sections of the brain have been obtained, 5 mm slice thickness. Contrast has not been administered. 2-D sagittal, coronal reconstructions have been obtained Low dose protocols were performed. One or more of the following dose reduction techniques were used; automated exposure control, adjustment of the mA and/or KV according to patient size, use of iterative reconstruction technique. Findings: No significant ventricular enlargement. Intra-axial or extra-axial hemorrhage density is not seen. No mass effect or midline shift Basal cisterns are not remarkable. Fourth ventricle is midline. Cranial vault intact. Impression: Negative for acute hemorrhage, mass effect or midline shift
--- NOTE | 2025-09-22 17:47 | XR_ITS ---
Examination: CT cervical spine without contrast 2-D sagittal reconstructions 2-D coronal reconstructions 3-D reconstructions. Exam date and time: September 22, 2025, 1845 hours INDICATIONS: Ground-level fall today with injury to the neck, neck pain CTDI:vol (mGy) 15.1 DLP: (mGycm) 337 Technique: Multiple 2 mm axial sections of the cervical spine have been obtained. The coronal and sagittal reconstructions have been obtained. 3-D reconstructions have been obtained. Low dose protocols were performed. One or more of the following dose reduction techniques were used; automated exposure control, adjustment of the mA and/or KV according to patient size, use of iterative reconstruction technique. Findings: Axial sections demonstrate intact base of the skull. C1 exhibit satisfactory relationship to the odontoid. No acute cervical vertebral body fracture seen. Alignment posterior spinous processes satisfactory. Impression: No acute cervical fracture.
--- NOTE | 2025-09-22 17:47 | EKG_ITS ---
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[id number] Requested By: Morgan Vieyra Order Number: [id number] Reading MD: Morgan Vieyra Measurements Intervals [place] Rate: 69 P: 48 NC: 169 QRS: -41 QRSD: 121 T: 43 QT: 398 QTc: 428 Interpretive Statements SINUS RHYTHM WITH OCCASIONAL SUPRAVENTRICULAR PREMATURE COMPLEXES LEFT AXIS DEVIATION [QRS AXIS < -30] MODERATE INTRAVENTRICULAR CONDUCTION DELAY [110+ ms QRS DURATION] MODERATE VOLTAGE CRITERIA FOR LVH, CONSIDER NORMAL VARIANT [MEETS CRITERIA IN ONE OF: R(aVL), S(V1), R(V5), R(V5/V6)+S(V1)] Compared to ECG 08/06/2025 13:25:22 Left-axis deviation now present Intraventricular conduction delay now present Incomplete right bundle-branch block no longer present Left anterior fascicular block no longer present /store/S0/[id number]/[id number].pdf
--- NOTE | 2025-09-22 17:49 | EDNOTE_ITS ---
ED General RME/HPI General Chief complaint: Weakness Stated complaint: WEAKNESS Time Seen by Provider: 09/22/25 17:43 Arrival date/time: 09/22/25 17:14 CC: Weakness with recurrent falls HPI patient presents to the ER via EMS reports stable vital signs the patient admits that she is think she has had greater than 20 falls in the last 3 days. Patient denies loss of consciousness or altered level consciousness she does states that when she stands up she falls . Patient has slightly slurred speech denies taking any of her medications which include Xanax and [place]'s. 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 Currently patient is complaining of low back pain and bilateral knee pain which the patient has had prior to the falls. Related Data Home Medications ?Medication ?Instructions ?Recorded ?Confirmed alprazolam 2 mg tablet (Xanax) 2 mg PO BID #0 tabs 08/06/25 aspirin 81 mg tablet 81 mg PO HS ##0 09/17/1507/23 hydrocodone 10 mg-acetaminophen 1.5 tab PO QDAY #0 tab s 09/17/15 08/06/25 325 mg tablet levothyroxine 100 mcg tablet 100 mcg PO QDAY Thyroid # 0 tabs 09/17/15 08/06/25 conjugated estrogens 0.3 mg tablet 0.3 mg PO QDAY 04/2808/06/25 (Premarin) nitroglycerin 0.4 mg sublingual 0.4 mg buccal PRN PRN Chest Pain 05/11/21 08/06/25 tablet rosuvastatin 5 mg tablet 5 mg PO HS 05/11/21 08/06/25 Allergies Allergy/AdvReac Type Severity Reaction Status Date / Time morphine Allergy Intermediate Diarrhea Verified 08/06/25 13:12 Review of Systems Review of Systems Narrative Review of Systems: GEN: No fever, no chills, no weight loss EYES: No discharge, no visual changes, no pain HEENT: No ear pain, no congestion, no sore throat PULM: No shortness of breath, no cough, no congestion CV: No chest pain, no dyspnea on exertion, no palpitations GI: No nausea, no vomiting, no diarrhea, no pain, no constipation : No frequency, no urgency, no dysuria MUSC/SKEL: + joint pain, no back pain SKIN: No rash PSYCH: No hallucinations, no depression HEME/LYMPH: No easy bleeding or bruising tendencies NEURO: No weakness, no headache Past Medical History Past Medical History CARDIAC: Positive Hypercholesterolemia, Congestive Heart Failure and Hyperten alison; Negative Cardiac Disorders RESPIRATORY: Negative Chronic Obstructive Pulmonary Disease (COPD) or Asthma GENITOURINARY: Positive Renal Disease ENDOCRINE: Negative Diabetes Mellitus Type 1 or Diabetes Mellitus Type 2 HEMATOLOGIC: Negative Sickle Cell Disease OTHER HISTORY: Positive Falls and Cancer (RENAL CELL CARCINOMA) Surgical History SURGICAL: Negative Nephrectomy Social History SMOKING STATUS: Never smoker SUBSTANCE USE: does not use ED Exam Narrative Physical exam: [General: Not in any acute distress Head normocephalic HEENT: Within acceptable limits Neck is supple nontender Chest equal chest rise nontender to palpation Respiratory: Clear to auscultation no wheezes crackles or rubs CV: Rate rhythm is regular no murmurs rubs or clicks Abdomen is distended secondary to body habitus soft nontender no masses positive bowel sounds all 4 quadrants Back: No CVA tenderness no spinous process tenderness from cervical spine thoracic and lumbar spine Skin: Intact no petechiae rash induration ulceration or crepitus Extremities: Moving all extremity against resistance cap refill less than 2 seconds neurosensory intact Neuro: Awake alert oriented x2, person and place, Glascow coma 15 no focal deficits] Course Course Course Narrative: Nursing informed me at 2139, the patient wanting to leave AGAINST MEDICAL ADVICE. The patient prior to this and an assessment at approximately 2029 was awake alert oriented and still had mildly slurred speech. I suspect this patient is abusing her narcotics and benzodiazepines which is contributing to these I addressed this with the patient prior to AMA. She reported that she had not taken any today. Quality Measures none Orders Category Date Time Status EKG (ED ONLY) *Do not use* NOW Care 09/22/25 17:47 Completed Miscellaneous Nursing Order NOW Care 09/22/25 20:[address] cervical spine wo con Stat Exams 09/22/25 17:[address] head/brain wo con Stat Exams 09/22/25 17:47 Completed EKG (ED Only) Stat Exams 09/22/25 17:47 Draft B-Type Natriuretic Peptide Stat Lab 09/22/25 17:45 Completed CBC Stat Lab 09/22/25 17:45 Completed Comprehensive Metabolic Panel Stat Lab 09/22/25 17:45 Completed Drug Screen,Urine Stat Lab 09/22/25 18:13 Completed Free T4 (Free Thyroxine) Stat Lab 09/22/25 17:45 Completed LDH (Lactate Dehydrogenase) Stat Lab 09/22/25 17:45 Completed Magnesium Stat Lab 09/22/25 17:45 Completed Partial Thromboplastin Time Stat Lab 09/22/25 17:45 Completed Prothrombin Time with INR Stat Lab 09/22/25 17:45 Completed TSH [Thyroid Stimulating Hormone] Stat Lab 09/22/25 17:45 Completed Troponin I Stat Lab 09/22/25 17:45 Completed Urinalysis, C/S if Indicated Stat Lab 09/22/25 18:13 Completed Vital Signs Vital signs: Vital Signs Temperature 98.2 F 09/22/25 17:28 Pulse Rate 65 09/22/25 17:28 Respiratory Rate 18 09/22/25 17:28 Blood Pressure 151/71 H 09/22/25 17:28 Pulse Oximetry (%) 97 09/22/25 17:28 Oxygen Delivery Method Room Air 09/22/25 17:28 Discharge Plan Plan Patient Disposition: Left Against Medical Advice Discharge Disposition comment: Unknown Prescriptions/Referrals Prescriptions/Med Rec: No Action hydrocodone-acetaminophen 10-325 mg Tablet 1.5 tab PO QDAY Qty: 0 levothyroxine 100 mcg Tablet 100 mcg PO QDAY Qty: 0 alprazolam [Xanax] 2 MG tablet 2 mg PO BID Qty: 0 aspirin 81 mg Tablet 81 mg PO HS Qty: 0 nitroglycerin 0.4 mg Tablet, Sublingual 0.4 mg BUCCAL PRN PRN (Reason: Chest Pain) Premarin 0.3 mg Tablet 0.3 mg PO QDAY rosuvastatin 5 mg Tablet 5 mg PO HS Referrals: No Primary/Family,Physician [Primary Care Provider] - In 1 week Bennie Salter MD [Physician, Family Practice] - In 1 week Problem List Clinical Impression: Recurrent falls, Polypharmacy Patient/Caregiver Discharge Instructions Print Language: Syriac PA/CARDIOPULMONARY TECHNOLOGIST Supervising Physician PA/CARDIOPULMONARY TECHNOLOGIST Supervising Physician: Morgan Lorenz ENP [facility] Clinical Information Provided by: patient and EMS Medical Records reviewed [facility] and EMS Meds/Rx considered, not ordered None Labs/Rad/Tests considered, not ordered None Chronic Illness/Social Conditions which may negatively complicate care or outcome(s)-explain: None or not applicable EKG Interpretation EKG #1: EKG Interpretation: EKG performed at 1815 shows a ventricular rate of 69. About 169 QRS of 121 QTc of 417 this is sinus rhythm with supraventricular complexes. Left axis deviation. Labs Labs: interpreted by co Lab(s) Interpretation(s): CBC shows no acute leukocytosis, hemoglobin 11.4 hematocrit 34.8. No thrombocytopenia Coags within acceptable limits CMP shows no significant electrolyte imbalances renal impairment transaminitis or T. bili elevation Troponin is undetectable BNP is within acceptable limits.. TSH of 0.29 free T41.83. Urine shows leukocyte esterase +3 WBCs rare bacteria UDS is positive for opiates and benzos. Imaging Imaging interpretation: interpreted by co Imaging Interpretation(s): CT head and C-spine are negative for any acute finding. Medication Administration(s) none
[2025-09-22 18:14] LABS: Basophils # (Auto) 0.0 Thou/mm3 (0.0-0.2); Basophils % (Auto) 1 % (0-2.5); Eosinophils # (Auto) 0.1 Thou/mm3 (0.0-0.5); Eosinophils % (Auto) 3 % (0-10); Hematocrit 34.8 % (36.0-46.0); Hemoglobin 11.4 g/dL (12.0-16.0); Immature Granulocytes Auto 0.01 Thou/mm3 (0.00-0.00); Lymphocytes # (Auto) 1.5 Thou/mm3 (1.0-4.8); Lymphocytes % (Auto) 33 % (10-50); Mean Corpuscular HGB Conc 32.8 g/dl (31.0-37.0); Mean Corpuscular Hemoglobin 28.5 pg (25.0-35.0); Mean Corpuscular Volume 87 fL (80-100); Monocytes # (Auto) 0.3 Thou/mm3 (0.0-0.8); Monocytes % (Auto) 8 % (0-12); Neutrophils # (Auto) 2.5 Thou/mm3 (1.8-7.7); Neutrophils % (Auto) 55 % (37-80); Nucleated Red Blood Cell # 0.00 Thou/mm3 (0.00-0.00); Nucleated Red Blood Cell % 0 /100 WBC (0); Platelet Count 197 Thou/mm3 (140-440); RDW Standard Deviation 41.4 fL (36.4-46.3); Red Blood Count 4.00 Miln/mm3 (4.00-5.20); White Blood Count 4.5 Thou/mm3 (3.6-11.0)
[2025-09-22 18:17] LABS: INR 1.0 (0.9-1.3); Partial Thromboplastin Time 25.4 Seconds (22.0-36.0); Prothrombin Time 10.4 Seconds (9.0-12.2)
[2025-09-22 18:26] LABS: Collection Type, Urine Clean Catch
[2025-09-22 18:27] LABS: Alanine Aminotransferase 10 U/L (10-49); Albumin, Serum 4.3 gm/dL (3.4-4.8); Albumin/Globulin Ratio 2.5 (1.2-2.2); Alkaline Phosphatase 69 U/L (46-116); Anion Gap 9 (7-16); Aspartate Amino Transferase 21 U/L (0-34); BUN/Creatinine Ratio 8 Ratio (12-20); Bilirubin,Total 0.8 mg/dL (0.3-1.2); Blood Urea Nitrogen 10 mg/dL (9-23); Calcium 10.0 mg/dL (8.3-10.6); Calcium (Corrected) 10.0 mg/dL (8.5-10.1); Carbon Dioxide 29.0 mMol/L (20.0-31.0); Chloride 107 mMol/L (98-107); Creatinine (Component) 1.2 mg/dL (0.6-1.3); Estimated Creatinine Clearance 54.2 mL/min (>60); Free T4 (Free Thyroxine) 1.83 ng/dL (0.89-1.76); Globulin 1.7 gm/dL (2.3-3.5); Glucose 101 mg/dL (74-106); LDH (Lactate Dehydrogenase) 175 U/L (120-246); Magnesium 1.7 mg/dL (1.6-2.6); Osmolality,Calculated 287 (275-295); Potassium 4.1 mMol/L (3.4-5.1); Sodium 145 mMol/L (136-145); Thyroid Stimulating Hormone 0.29 uIU/mL (0.55-4.78); Total Protein 6.0 gm/dL (5.7-8.2); Troponin I < 0.002 ng/mL (0.0-0.045); eGFR 48 See Note
[2025-09-22 18:30] LABS: B-Type Natriuretic Peptide 80 pg/mL (0-100)
[2025-09-22 18:39] LABS: Amorphous Crystals,Urine Present (Absent); Bacteria,Urine Rare; Bilirubin,Urine Negative (Negative); Blood,Urine Negative (Negative); Clarity,Urine Clear (Clear/Hazy); Color,Urine Lt-Yellow (Lt Yel-Yel); Culture Indicated,Urine Not Indicated; Glucose, Urine Negative (Negative); Ketones,Urine Negative (Negative); Leukocyte Esterase,Urine Positive (Negative); Nitrite,Urine Negative (Negative); PH,Urine 5.5 (5.0-7.0); Protein,Urine Negative (Neg - Trace); RBC,Urine 1 /hpf (0-3); Specific Gravity,Urine 1.006 (1.001-1.035); Squamous Epithelial Cell,Urine 2 /hpf (0-5); Urobilinogen,Urine Negative mg/dL (0.0-1.0); WBC,Urine 3 /hpf (0-5)
[2025-09-22 19:09] LABS: Amphetamine/Methamp Scrn,U Negative (Negative); Barbiturate Screen,Urine Negative (Negative); Benzodiazepines Screen,Urine Positive (Negative); Benzoylecgonine Screen, Ur Negative (Negative); Fentanyl Screen,Urine Negative (Negative); Opiate Screen,Urine Positive (Negative); THC Screen,Urine Negative (Negative)
[2025-09-22 19:29] VITALS: BP 176/87; PULSE 70; RESP 18; TEMP 36.5; O2SAT 96
[2025-09-22 21:25] VITALS: BP 163/87; PULSE 83; RESP 18; TEMP 36.7; O2SAT 99
== END 2025-09-22 22:15 | disposition left against medical advice (07) ==
PROVIDERS: Registered Nurse General Practice; Emergency Provider Emergency Medicine
DX: S19.9XXA Unspecified injury of neck, initial encounter (principal); S09.90XA Unspecified injury of head, initial encounter; R29.6 Repeated falls; I49.1 Atrial premature depolarization; I45.89 Other specified conduction disorders; I11.0 Hypertensive heart disease with heart failure; I50.9 Heart failure, unspecified; E78.00 Pure hypercholesterolemia, unspecified; M25.561 Pain in right knee; W18.30XA Fall on same level, unspecified, initial encounter
CPT/HCPCS: 36415; 70450; 72125; 80053; 80307; 81001; 83615; 83735; 83880; 84439; 84443; 84484; 85025; 85610; 85730; 93005; 99283